=== PATIENT | male | born 1930 | race Caucasian/White ===

== ENCOUNTER 2017-02-25 01:59 | Inpatient (IN) | payer MEDICARE ==
[2017-02-25] VITALS (26 sets, daily range): BP systolic 82–171; BP diastolic 51–113
[~2017-02-25] VITALS: Ht 193 cm; Wt 79.5 kg
--- OUTSIDE RECORDS SUMMARY | 2017-02-25 05:18 | XMS REPORT ---
Author Author Ant Huber [facility] Address [address] [place], [place] [id number] Care Team Providers Care Pals Nurse Name Role Phone Ant Huber PCP Unavailable Ant Huber PreferredProvider Unavailable Allergies and Adverse Reactions Name Reaction Notes NO KNOWN DRUG ALLERGIES Plan of Treatment Planned Activity Comments Planned Date Planned Time Plan/Goal CT HEAD W/O CONTRAST 08/03/2016 12:00 AM CBC with Auto 01/20/2014 12:00 AM Thyroid stimulating hormone (TSH) 01/20/2014 12:00 AM Protime 04/01/2014 12:00 AM CBC With Auto Differential 05/27/2014 12:00 AM CMP 05/27/2014 12:00 AM Lipid profile 05/27/2014 12:00 AM Protime 05/27/2014 12:00 AM Thyroid stimulating hormone (TSH) 05/27/2014 12:00 AM Lipid profile 08/18/2014 12:00 AM Medications Active Name Start Date Estimated Completion Date SIG Comments aspirin 81 mg oral tablet take 1 tablet (81 mg) by oral route once daily [place] 0.03 % ophthalmic drops instill 1 drop into affected eye(s) by ophthalmic route once daily in the evening levothyroxine 100 mcg oral tablet 08/08/2014 TAKE ONE TABLET BY MOUTH ONCE DAILY finasteride 5 mg oral tablet 04/10/2015 TAKE ONE TABLET BY MOUTH ONCE DAILY Miralax 17 gram/dose oral powder 05/26/2015 take 17 gram mixed with 8 oz. water, juice, soda, coffee or tea by oral route once daily pilocarpine HCl 2 % ophthalmic drops 06/18/2015 INSTILL ONE DROP INTO EACH EYE EVERY 12 HOURS pilocarpine HCl 2 % ophthalmic drops 06/23/2015 INSTILL ONE DROP INTO EACH EYE EVERY 12 HOURS atorvastatin 80 mg oral tablet 08/05/2015 TAKE ONE TABLET BY MOUTH ONCE DAILY AT BEDTIME levothyroxine 100 mcg oral tablet 11/09/2015 TAKE ONE TABLET BY MOUTH ONCE DAILY finasteride 5 mg oral tablet 08/01/2016 TAKE ONE TABLET BY MOUTH ONCE DAILY Name Start Date Expiration Date SIG Comments amoxicillin 500 mg oral capsule 10/30/2009 11/09/2009 take 2 capsules by oral route 3 times a day for 5 days Medrol (Onel) 4 mg oral tablets,dose pack 11/02/2009 11/12/2009 take as directed for 5 days Bactrim DS 800-160 mg oral tablet 11/02/2009 11/12/2009 take 1 tablet by oral route every 12 hours for 10 days Synthroid 50 mcg oral tablet 06/28/2010 06/28/2010 take 1 tablet (50 mcg) by oral route once daily SYNTHROID 50MCG TAB 50 each 06/29/2010 07/29/2010 1QD - TAKE ONE TABLET BY MOUTH EVERY DAY atorvastatin 80 mg oral tablet 02/12/2013 03/14/2013 TAKE ONE TABLET BY MOUTH AT BEDTIME Aleve 220 mg oral tablet 07/25/2013 11/22/2013 take 1 tablet (220 mg) by oral route every 12 hours as needed for 30 days Colace 100 mg oral capsule 07/25/2013 02/20/2014 take 1 capsule (100 mg) by oral route once daily for 30 days Lasix 20 mg oral tablet 07/25/2013 02/20/2014 take 1 tablet daily levothyroxine 100 mcg oral tablet 07/25/2013 02/20/2014 take 1 tablet (100 mcg) by oral route once daily for 30 days Miralax 17 gram/dose oral powder 07/25/2013 02/20/2014 take 17 gram mixed with 8 oz. water, juice, soda, coffee or tea by oral route once daily for 30 days pilocarpine HCl 2 % ophthalmic drops 07/25/2013 02/20/2014 instill 1 drop into both eyes by ophthalmic route every 12 hours for 30 days bimatoprost 0.01% 07/26/2013 05/22/2014 1 drop each eye at bedtime timolol maleate 0.5 % ophthalmic drops 07/26/2013 02/21/2014 instill 1 drop in affected eye , each eye for 30 days bid atorvastatin 40 mg oral tablet 04/07/2014 11/03/2014 take 1 tablet (40 mg) by oral route once daily at bedtime for 30 days finasteride 5 mg oral tablet 04/07/2014 07/01/2015 take 1 tablet (5 mg) by oral route once daily for 90 days atenolol 50 mg oral tablet 09/11/2014 09/06/2015 take 1 tablet by oral route daily for 30 days Coumadin 2.5 mg oral tablet 09/11/2014 09/06/2015 take 1 tablet (2.5 mg) by oral route once daily for 90 days, on Wed et Sat take 1/2 tablet Pacerone 200 mg oral tablet 09/11/2014 05/09/2015 take 1 tablet (200 mg) by oral route once daily for 30 days naproxen 500 mg oral tablet 05/26/2015 09/23/2015 take 1 tablet (500 mg) by oral route 2 times per day with food for 30 days Discontinued Name Start Date Discontinued Date SIG Comments carvedilol 25 mg oral tablet 06/12/2012 take 1 tablet (25 mg) by oral route 2 times per day with food promethazine-codeine 6.25-10 mg/5 mL oral syrup 06/12/2012 take 5 milliliters by oral route every 6 hours as needed, not to exceed 30 mL in 24 hours pravastatin 80 mg oral tablet 06/12/2012 take 1 tablet (80 mg) by oral route once daily Nasonex 50 mcg/actuation nasal spray,non-aerosol 07/07/2011 06/12/2012 spray 2 sprays in each nostril by intranasal route once daily [place] 5-325 mg oral tablet 05/21/2013 take 1 tablet by oral route every 6 hours as needed for pain for 30 days Lasix 40 mg oral tablet 12/11/2012 05/21/2013 take 1 tablet by oral route daily as needed Celebrex 200 mg oral capsule 05/21/2013 04/07/2014 take 1 capsule (200 mg) by oral route once daily Lipitor 20 mg oral tablet 07/08/2013 04/07/2014 take 1 tablet (20 mg) by oral route once daily for 90 days warfarin 2 mg oral tablet 04/07/2014 take 1 tablet (2 mg) by oral route once daily atorvastatin 80 mg oral tablet 07/29/2014 09/11/2014 TAKE ONE TABLET BY MOUTH ONCE DAILY AT BEDTIME Problem List Description Status Onset Heart disease Active Hyperlipidemia, 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/2012 Vital Signs Date Time BP-Sys(mm[Hg] BP-Yokasta(mm[Hg]) HR(bpm) RR(rpm) Temp WT HT HC BMI BSA BMI Percentile O2 Sat(%) 08/03/2016 10:52:00 AM 118 bpm 18 rpm 97.8 F 172 lbs 74 in 22.08 kg/m2 2.02 m2 94 % 04/14/2016 3:09:00 PM 118 mmHg 70 mmHg 92 bpm 17 rpm 97.9 F 183 lbs 74 in 23.4956 kg/m 2.0818 m 96 % 02/09/2016 2:52:00 PM 116 mmHg 74 mmHg 67 bpm 18 rpm 97 F 189 lbs 74 in 24.27 kg/m2 2.12 m2 95 % 05/26/2015 2:11:00 PM 130 mmHg 64 mmHg 82 bpm 18 rpm 97.4 F 200 lbs 74 in 25.6782 kg/m 2.1764 m 09/11/2014 1:34:00 PM 108 mmHg 70 mmHg 82 bpm 18 rpm 98.3 F 208 lbs 74 in 26.71 kg/m2 2.22 m2 05/27/2014 1:34:00 PM 100 mmHg 62 mmHg 88 bpm 18 rpm 98.6 F 212 lbs 74 in 27.2189 kg/m 2.2407 m 04/22/2014 3:26:00 PM 100 mmHg 64 mmHg 93 bpm 18 rpm 97 F 209 lbs 74 in 26.83 kg/m2 2.22 m2 93 % 04/07/2014 2:57:00 PM 110 mmHg 74 mmHg 84 bpm 18 rpm 98.2 F 209 lbs 74 in 26.8337 kg/m 2.2248 m 03/31/2014 1:18:00 PM 132 mmHg 80 mmHg 92 bpm 18 rpm 97.4 F 208.5 lbs 74 in 26.77 kg/m2 2.22 m2 97 % 03/24/2014 11:12:00 AM 123 mmHg 97 mmHg 93 bpm 20 rpm 98.2 F 206.2 lbs 74 in 26.4742 kg/m 2.2098 m 96 % 02/11/2014 8:58:00 AM 132 mmHg 74 mmHg 54 bpm 18 rpm 96.1 F 204.125 lbs 74 in 26.21 kg/m2 2.20 m2 98 % 08/27/2013 3:54:00 PM 152 mmHg 90 mmHg 64 bpm 20 rpm 98 F 208 lbs 08/12/2013 10:57:00 AM 129 mmHg 87 mmHg 66 bpm 20 rpm 98 F 210 lbs 74 in 26.96 kg/m2 2.23 m2 96 % 07/08/2013 11:08:00 AM 110 mmHg 82 mmHg 61 bpm 18 rpm 97.5 F 208 lbs 74 in 26.7053 kg/m 2.2195 m 95 % 05/21/2013 1:50:00 PM 112 mmHg 60 mmHg 79 bpm 20 rpm 98.6 F 212 lbs 74 in 27.22 kg/m2 2.24 m2 12/11/2012 1:57:00 PM 120 mmHg 64 mmHg 66 bpm 14 rpm 97.6 F 218 lbs 74 in 27.9893 kg/m 2.2722 m 95 % 09/04/2012 8:22:00 AM 128 mmHg 82 mmHg 78 bpm 18 rpm 97.6 F 221 lbs 74 in 28.37 kg/m2 2.29 m2 06/12/2012 1:29:00 PM 118 mmHg 72 mmHg 72 bpm 18 rpm 98.1 F 218 lbs 74 in 27.9893 kg/m 2.2722 m 12/26/2011 1:40:00 PM 110 mmHg 70 mmHg 64 bpm 18 rpm 97.8 F 211 lbs 74 in 27.09 kg/m2 2.24 m2 11/24/2011 3:25:00 PM 144 mmHg 80 mmHg 64 bpm 18 rpm 97.9 F 200 lbs 74 in 25.6782 kg/m 2.1764 m 07/07/2011 2:12:00 PM 110 mmHg 72 mmHg 60 bpm 18 rpm 97.9 F 212 lbs 74 in 27.22 kg/m2 2.24 m2 01/24/2011 3:17:00 PM 100 mmHg 64 mmHg 58 bpm 20 rpm 98.8 F 224 lbs 74 in 28.7596 kg/m 2.3032 m 03/18/2010 3:02:00 PM 140 mmHg 80 mmHg 100 bpm 20 rpm 97.5 F 217 lbs 11/16/2009 10:40:00 AM 108 mmHg 60 mmHg 56 bpm 20 rpm 98.3 F 212 lbs 11/05/2009 8:16:00 AM 110 mmHg 78 mmHg 58 bpm 20 rpm 98.3 F 211 lbs 11/02/2009 8:03:00 AM 108 mmHg 64 mmHg 58 bpm 18 rpm 98.8 F 212 lbs 10/30/2009 8:07:00 AM 102 mmHg 60 mmHg 56 bpm 98.1 F 210 lbs 10/26/2009 10:48:00 AM 108 mmHg 54 mmHg 50 bpm 98 F 213 lbs 04/07/2009 8:50:00 AM 122 mmHg 74 mmHg 50 bpm 97.4 F 221 lbs Social History Name Description Comments Tobacco Never smoker Lives with spouse Alcohol Use - Rare retired Exercises regularly walking History of Procedures Date Ordered Description Order Status 01/24/2011 12:00 AM Immunization administration, Medicare flu Reviewed 05/14/2015 12:00 AM RADEX SPINE THORACIC 2 VIEWS Reviewed 05/14/2015 12:00 AM RADEX SPINE LUMBOSACRAL 2/3 VIEWS Reviewed 03/09/2011 12:00 AM CAPILLARY BLOOD DRAW Reviewed 03/09/2011 12:00 AM PROTHROMBIN TIME Reviewed 02/01/2016 12:00 AM COMPLETE CBC W/AUTO DIFF WBC Reviewed 02/01/2016 12:00 AM COMPREHEN METABOLIC PANEL Reviewed 02/01/2016 12:00 AM LIPID PANEL Reviewed 02/01/2016 12:00 AM GLYCOSYLATED HEMOGLOBIN TEST Reviewed 02/02/2016 12:00 AM ASSAY THYROID STIM HORMONE Reviewed 06/23/2011 12:00 AM CHEST X-RAY 2VW FRONTAL&LATL Reviewed 02/09/2016 12:00 AM X-RAY EXAM THORAC SPINE 2VWS Reviewed 07/07/2011 12:00 AM BREATHING CAPACITY TEST Reviewed 03/05/2009 12:00 AM PROTHROMBIN TIME Reviewed 02/29/2012 12:00 AM PNEUMOCOCCAL VACC 23 BAILEY IM Reviewed 02/29/2012 12:00 AM Flu Injection 3 Years And Above [facility]# [address]-62 C Reviewed 05/11/2012 12:00 AM ROUTINE VENIPUNCTURE Reviewed 05/11/2012 12:00 AM COMPLETE CBC W/AUTO DIFF WBC Reviewed 05/11/2012 12:00 AM COMPREHEN METABOLIC PANEL Reviewed 05/11/2012 12:00 AM LIPID PANEL Reviewed 05/11/2012 12:00 AM ASSAY THYROID STIM HORMONE Reviewed 07/05/2012 12:00 AM CAPILLARY BLOOD DRAW Reviewed 07/05/2012 12:00 AM PROTHROMBIN TIME Reviewed 08/13/2012 12:00 AM IMMUNIZATION ADMIN Reviewed 08/13/2012 12:00 AM TD VACCINE NO PRSRV 7/> IM Reviewed 12/04/2012 12:00 AM ROUTINE VENIPUNCTURE Reviewed 12/04/2012 12:00 AM COMPLETE CBC W/AUTO DIFF WBC Reviewed 12/04/2012 12:00 AM COMPREHEN METABOLIC PANEL Reviewed 12/04/2012 12:00 AM LIPID PANEL Reviewed 12/04/2012 12:00 AM ASSAY THYROID STIM HORMONE Reviewed 02/22/2013 12:00 AM Flu Injection 3 Years And Above [facility]# [id number] C Reviewed 03/15/2013 12:00 AM CAPILLARY BLOOD DRAW Reviewed 03/15/2013 12:00 AM PROTHROMBIN TIME Reviewed 04/15/2013 12:00 AM ROUTINE VENIPUNCTURE Reviewed 04/15/2013 12:00 AM COMPLETE CBC W/AUTO DIFF WBC Reviewed 04/15/2013 12:00 AM COMPREHEN METABOLIC PANEL Reviewed 04/15/2013 12:00 AM LIPID PANEL Reviewed 04/15/2013 12:00 AM ASSAY THYROID STIM HORMONE Reviewed 03/30/2009 12:00 AM PROTHROMBIN TIME Reviewed 03/30/2009 12:00 AM METABOLIC PANEL TOTAL CA Reviewed 10/30/2009 12:00 AM CULTURE OTHR SPECIMN AEROBIC Reviewed 11/02/2009 12:00 AM PROTHROMBIN TIME Reviewed 11/05/2009 12:00 AM PROTHROMBIN TIME Reviewed 11/16/2009 12:00 AM PROTHROMBIN TIME Reviewed 11/16/2009 12:00 AM COMPLETE CBC W/AUTO DIFF WBC Reviewed 11/16/2009 12:00 AM COMPREHEN METABOLIC PANEL Reviewed 11/16/2009 12:00 AM LIPID PANEL Reviewed 11/16/2009 12:00 AM ASSAY THYROID STIM HORMONE Reviewed 12/15/2009 12:00 AM ROUTINE VENIPUNCTURE Reviewed 12/15/2009 12:00 AM COMPLETE CBC W/AUTO DIFF WBC Reviewed 12/15/2009 12:00 AM METABOLIC PANEL TOTAL CA Reviewed 12/15/2009 12:00 AM LIPID PANEL Reviewed 12/15/2009 12:00 AM ASSAY THYROID STIM HORMONE Reviewed 04/07/2009 12:00 AM PROTHROMBIN TIME Reviewed 02/09/2010 12:00 AM Immunization administration, Medicare flu Reviewed 02/09/2010 12:00 AM FLU VACCINE 3 YRS & > IM Reviewed 03/02/2010 12:00 AM ROUTINE VENIPUNCTURE Reviewed 03/02/2010 12:00 AM COMPLETE CBC W/AUTO DIFF WBC Reviewed 03/02/2010 12:00 AM COMPREHEN METABOLIC PANEL Reviewed 03/02/2010 12:00 AM LIPID PANEL Reviewed 03/02/2010 12:00 AM ASSAY THYROID STIM HORMONE Reviewed 04/12/2010 12:00 AM CAPILLARY BLOOD DRAW Reviewed 04/12/2010 12:00 AM PROTHROMBIN TIME Reviewed 01/20/2014 12:00 AM COMPREHEN METABOLIC PANEL Reviewed 01/20/2014 12:00 AM LIPID PANEL Reviewed 02/11/2014 12:00 AM INFLUENZA VAC 4 VALENT PRSRV FREE 3 YRS PLUS IM Reviewed 03/24/2014 12:00 AM ELECTROCARDIOGRAM COMPLETE Reviewed 04/07/2014 12:00 AM PNEUMOCOCCAL VACC 7 BAILEY IM Reviewed 08/18/2014 12:00 AM COMPLETE CBC W/AUTO DIFF WBC Reviewed 08/18/2014 12:00 AM COMPREHEN METABOLIC PANEL Reviewed 08/18/2014 12:00 AM GLYCOSYLATED HEMOGLOBIN TEST Reviewed 08/18/2014 12:00 AM ASSAY THYROID STIM HORMONE Reviewed 08/18/2014 12:00 AM ASSAY OF PSA TOTAL Reviewed 08/18/2014 12:00 AM ASSAY OF PSA FREE Reviewed 08/18/2014 12:00 AM PSA screening Reviewed Results Summary Data and Description Results 02/19/2009 11:50 AM LDL 83.0 mg/dLHDL 38.0 mg/dLTOT CHOL/HDL 4.2 CHOLESTEROL 158 mg/dLTRIGLYCERIDES 86.0 mg/dLLDL 83.0 mg/dLTOT CHOL/HDL 4.2 CHOLESTEROL 158 mg/dLHDL 38.0 mg/dLTRIGLYCERIDES 86.0 mg/dLMANUAL DIFF NOT IND RDW SD 46 RDW CV 13.80 %RBC 4.64 MCHC 33.80 g/dLMPV 9.0 fL%NEUT 59.60 %%MONO 10.10 %%BASO 0.3 % NRBC% 0.0 NRBC# 0.00 MCH 31.0 pg#LYMP 1.07 #EOS 0.12 PLT 197 HCT 42.60 %MCV 92.0 fLWBC 4.0 #MONO 0.40 %EOS 3.0 %HGB 14.40 g/dL#BASO 0.01 %LYMP 27.0 %#NEUT 2.37 %LYMP 27.0 %#BASO 0.01 #LYMP 1.07 #MONO 0.40 MCHC 33.80 g/dL%MONO 10.10 % WBC 4.0 MANUAL DIFF NOT IND %NEUT 59.60 %MCH 31.0 pg%BASO 0.3 %PLT 197 NRBC# 0.00 #EOS 0.12 HGB 14.40 g/dLRDW CV 13.80 %NRBC% 0.0 MPV 9.0 fLHCT 42.60 %%EOS 3.0 %RDW SD 46 RBC 4.64 MCV 92.0 fL#NEUT 2.37 PSA TOTAL 0.750 ng/mLPSA TOTAL 0.750 ng/mLGLUCOSE 114 SODIUM 141.0 mmol/LPOTASSIUM 4.30 mmol/LCHLORIDE 108.0 mmol/LCO2 26.0 mmol/LBUN 25.0 mg/dLCREATININE 1.10 mg/dLSGOT/AST 34.0 IU/LSGPT/ ALT 36.0 IU/LALK PHOS 86.0 IU/LTOTAL PROTEIN 6.80 g/dLALBUMIN 3.90 g/dLTOTAL BILI 0.90 mg/dLCALCIUM 9.50 mg/dLAGE 78 GFR NonAA 65 GFR AA 79 eGFR >60 mL/ mineGFR AA* >60 GLUCOSE 114 SODIUM 141.0 mmol/LPOTASSIUM 4.30 mmol/LCHLORIDE 108.0 mmol/LCO2 26.0 mmol/LBUN 25.0 mg/dLCREATININE 1.10 mg/dLSGOT/AST 34.0 IU/ LSGPT/ALT 36.0 IU/LALK PHOS 86.0 IU/LTOTAL PROTEIN 6.80 g/dLALBUMIN 3.90 g/ dLTOTAL BILI 0.90 mg/dLCALCIUM 9.50 mg/dLAGE 78 GFR NonAA 65 GFR AA 79 eGFR >60 mL/mineGFR AA* >60 03/05/2009 10:24 AM PT PPP Cont Qn 16.50 secsINR PPP Qn 1.8 Coumadin Plan take 4.5mg T et Th, 3mg on SMWFS INR Target Range 2.0-3.0 05/20/2009 1:02 PM INR 5.7 DATE/TIME CALLED: 10:1333 PROTIME 52.30 secsREAD BACK BY: ELLEN 06/03/2009 9:31 AM INR 2.0 PROTIME 22.10 secs 06/15/2009 3:09 PM INR 3.5 PROTIME 38.70 secs 07/13/2009 10:50 AM PROTIME 46.80 secsINR 4.2 08/24/2009 10:09 AM PROTIME 23.10 secsINR 2.1 10/07/2009 8:43 AM PROTIME 47.40 secsINR 4.3 10/26/2009 12:57 PM PROTIME 41.50 secsINR 3.7 10/30/2009 3:53 PM SMALL 11/05/2009 9:05 AM PROTIME 30.60 secsINR 2.8 12/15/2009 11:02 AM PROTIME 24.80 secsINR 2.3 01/12/2010 11:36 AM PROTIME 17.40 secsINR 1.6 02/09/2010 11:30 AM PROTIME 16.60 secsINR 1.5 03/02/2010 1:25 PM PROTIME POCT 59.20 secsINR POCT 4.9 03/15/2010 11:32 AM PROTIME 36.50 secsINR 3.3 TRIGLYCERIDES 105.0 mg/ dLCHOLESTEROL 137.0 mg/dLHDL 37.0 mg/dLTOT CHOL/HDL 3.7 LDL (CALC) 79.0 mg/ dLTSH 2.120 uIU/mLWBC 5.0 RBC 4.59 HGB 14.20 g/dLHCT 44.40 %MCV 97.0 fLMCH 30.90 pgMCHC 32.0 g/dLRDW SD 50 RDW CV 14.0 %MPV 9.20 fLPLT 207 NRBC# 0.00 NRBC % 0.0 %NEUT 64.70 %%LYMP 22.10 %%MONO 11.0 %%EOS 2.0 %%BASO 0.20 %#NEUT 3.25 # LYMP 1.11 #MONO 0.55 #EOS 0.10 #BASO 0.01 MANUAL DIFF NOT IND GLUCOSE 103.0 mg/ dLSODIUM 142.0 mmol/LPOTASSIUM 5.20 mmol/LCHLORIDE 109.0 mmol/LCO2 27.0 mmol/ LBUN 24.0 mg/dLCREATININE 1.20 mg/dLSGOT/AST 22.0 IU/LSGPT/ALT 21.0 IU/LALK PHOS 80.0 IU/LTOTAL PROTEIN 6.90 g/dLALBUMIN 4.0 g/dLTOTAL BILI 0.80 mg/ dLCALCIUM 9.70 mg/dLAGE 79 GFR NonAA 58 GFR AA 70 eGFR 58 eGFR AA* >60 04/12/2010 1:57 PM PROTIME POCT 38.60 secsINR POCT 3.2 06/14/2010 1:15 PM PROTIME POCT 34.30 secsINR POCT 2.9 07/26/2010 1:02 PM PROTIME POCT 32.50 secsINR POCT 2.7 08/31/2010 9:17 AM PROTIME POCT 51.50 secsINR POCT 4.3 09/27/2010 12:10 PM PROTIME POCT 40.60 secsINR POCT 3.4 11/03/2010 12:32 PM PROTIME POCT 34.10 secsINR POCT 2.8 12/14/2010 11:52 AM PROTIME POCT 37.30 secsINR POCT 3.1 03/14/2011 12:06 PM PROTIME POCT 37.60 secsINR POCT 3.1 04/18/2011 11:58 AM PROTIME POCT 22.90 secsINR POCT 1.9 06/07/2011 11:42 AM PROTIME POCT 26.50 secsINR POCT 2.2 07/11/2011 12:15 PM PROTIME POCT 69.50 secsINR POCT 5.8 CALLED TO/BY DAYA AT [facility] 1215 4-9 BY VERONICA 07/19/2011 3:48 PM PROTIME POCT 37.80 secsINR POCT 3.2 08/22/2011 12:05 PM PROTIME POCT 37.30 secsINR POCT 3.1 10/03/2011 11:55 AM PROTIME POCT 32.60 secsINR POCT 2.7 11/08/2011 9:12 AM PROTIME 26.40 secsINR 2.5 11/10/2011 10:00 AM PROTIME 23.10 secsINR 2.2 GLUCOSE 112.0 mg/dLSODIUM 142.0 mmol/LPOTASSIUM 3.80 mmol/LCHLORIDE 106.0 mmol/LCO2 24.0 mmol/LBUN 18.0 mg/ dLCREATININE 1.10 mg/dLCALCIUM 9.10 mg/dLAGE 81 GFR NonAA 64 GFR AA 78 eGFR 60 eGFR AA* 60 11/11/2011 10:01 AM GLUCOSE 124.0 mg/dLSODIUM 141.0 mmol/LPOTASSIUM 4.10 mmol/ LCHLORIDE 105.0 mmol/LCO2 24.0 mmol/LBUN 19.0 mg/dLCREATININE 1.20 mg/dLCALCIUM 9.40 mg/dLAGE 81 GFR NonAA 58 GFR AA 70 eGFR 58 eGFR AA* 60 PROTIME 30.40 secsINR 2.9 11/15/2011 8:56 AM PROTIME 49.20 secsINR 4.8 GLUCOSE 98.0 mg/dLSODIUM 141.0 mmol/LPOTASSIUM 3.70 mmol/LCHLORIDE 108.0 mmol/LCO2 24.0 mmol/LBUN 14.0 mg/ dLCREATININE 1.20 mg/dLCALCIUM 9.20 mg/dLAGE 81 GFR NonAA 58 GFR AA 70 eGFR 58 eGFR AA* 60 11/18/2011 7:30 AM GLUCOSE 91.0 mg/dLSODIUM 142.0 mmol/LPOTASSIUM 3.70 mmol/ LCHLORIDE 108.0 mmol/LCO2 24.0 mmol/LBUN 13.0 mg/dLCREATININE 1.20 mg/dLCALCIUM 8.80 mg/dLAGE 81 GFR NonAA 58 GFR AA 70 eGFR 58 eGFR AA* 60 PROTIME 46.90 secsINR 4.6 11/21/2011 1:40 PM WBC 5.9 RBC 4.08 HGB 12.10 g/dLHCT 38.30 %MCV 94.0 fLMCH 29.70 pgMCHC 31.60 g/dLRDW SD 55 RDW CV 15.90 %MPV 8.90 fLPLT 282 NRBC# 0.00 NRBC% 0.0 %NEUT 60.80 %%LYMP 21.20 %%MONO 13.80 %%EOS 3.90 %%BASO 0.30 %#NEUT 3.60 #LYMP 1.26 #MONO 0.82 #EOS 0.23 #BASO 0.02 MANUAL DIFF NOT IND GLUCOSE 98.0 mg/dLSODIUM 142.0 mmol/LPOTASSIUM 4.10 mmol/LCHLORIDE 106.0 mmol/LCO2 25.0 mmol/LBUN 24.0 mg/dLCREATININE 1.80 mg/dLSGOT/AST 34.0 IU/LSGPT/ALT 35.0 IU/ LALK PHOS 99.0 IU/LTOTAL PROTEIN 6.30 g/dLALBUMIN 3.50 g/dLTOTAL BILI 0.50 mg/ dLCALCIUM 9.20 mg/dLAGE 81 GFR NonAA 36 GFR AA 44 eGFR 36 eGFR AA* 44 TRIGLYCERIDES 226.0 mg/dLCHOLESTEROL 137.0 mg/dLHDL 32.0 mg/dLTOT CHOL/HDL 4.3 LDL (CALC) 60.0 mg/dLPSA TOTAL 0.560 ng/mLT4 8.10 ug/dLT3 TOTAL 66.0 ng/dLTSH 6.40 uIU/mL 11/21/2011 7:30 PM PROTIME 37.40 secsINR 3.6 COLOR YELLOW APPEARANCE CLEAR SPEC GRAV 1.010 pH 5.5 PROTEIN NEGATIVE GLUCOSE NEGATIVE KETONE NEGATIVE BILIRUBIN NEGATIVE BLOOD MODERATE NITRITE NEGATIVE LEUK SCREEN NEGATIVE WBC/HPF 0-5 RBC/HPF 0-5 CASTS/LPF NEGATIVE CRYSTALS NEGATIVE MUCOUS THRDS FEW BACTERIA NEGATIVE EPITH CELLS NEGATIVE TRICHOMONAS NEGATIVE YEAST NEGATIVE CULT SET UP? NO 11/28/2011 7:45 AM PROTIME 42.80 secsINR 4.2 12/12/2011 7:40 AM PROTIME 42.20 secsINR 4.1 12/22/2011 12:40 PM PROTIME POCT 32.10 secsINR POCT 2.7 01/24/2012 12:15 PM PROTIME POCT 50.0 secsINR POCT 4.2 02/09/2012 11:18 AM PROTIME POCT 43.70 secsINR POCT 3.6 02/29/2012 11:57 AM PROTIME POCT 41.30 secsINR POCT 3.4 04/04/2012 12:17 PM PROTIME POCT 50.70 secsINR POCT 4.2 05/07/2012 2:07 PM PROTIME POCT 26.50 secsINR POCT 2.2 05/21/2012 12:14 PM PROTIME POCT 54.90 secsINR POCT 4.6 06/05/2012 8:25 AM WBC 4.2 RBC 4.71 HGB 14.60 g/dLHCT 43.70 %MCV 93.0 fLMCH 31.0 pgMCHC 33.40 g/dLRDW SD 49 RDW CV 14.50 %MPV 9.10 fLPLT 193 NRBC# 0.00 NRBC % 0.0 %NEUT 55.30 %%LYMP 29.50 %%MONO 10.70 %%EOS 4.30 %%BASO 0.20 %#NEUT 2.32 # LYMP 1.24 #MONO 0.45 #EOS 0.18 #BASO 0.01 MANUAL DIFF NOT IND GLUCOSE 106.0 mg/ dLSODIUM 144.0 mmol/LPOTASSIUM 4.40 mmol/LCHLORIDE 108.0 mmol/LCO2 23.0 mmol/ LBUN 21.0 mg/dLCREATININE 1.10 mg/dLSGOT/AST 33.0 IU/LSGPT/ALT 39.0 IU/LALK PHOS 69.0 IU/LTOTAL PROTEIN 6.90 g/dLALBUMIN 3.80 g/dLTOTAL BILI 1.10 mg/ dLCALCIUM 9.90 mg/dLAGE 81 GFR NonAA 64 GFR AA 78 eGFR 60 eGFR AA* 60 TRIGLYCERIDES 122.0 mg/dLCHOLESTEROL 152.0 mg/dLHDL 43.0 mg/dLTOT CHOL/HDL 3.5 LDL (CALC) 85.0 mg/dLTSH 6.620 uIU/mL 06/18/2012 12:32 PM PROTIME POCT 25.30 secsINR POCT 2.1 07/02/2012 3:06 PM PROTIME POCT 37.0 secsINR POCT 3.1 08/08/2012 12:33 PM PROTIME POCT 41.20 secsINR POCT 3.4 09/03/2012 10:05 AM PROTIME POCT 24.60 secsINR POCT 2.1 09/11/2012 12:55 PM PROTIME POCT 36.0 secsINR POCT 3.0 10/08/2012 12:35 PM PROTIME POCT 46.10 secsINR POCT 3.8 11/05/2012 12:55 PM PROTIME POCT 37.20 secsINR POCT 3.1 12/07/2012 9:35 AM WBC 4.8 RBC 4.55 HGB 13.90 g/dLHCT 42.30 %MCV 93.0 fLMCH 30.50 pgMCHC 32.90 g/dLRDW SD 47 RDW CV 14.0 %MPV 8.80 fLPLT 201 NRBC# 0.00 NRBC % 0.0 %NEUT 56.20 %%LYMP 24.60 %%MONO 14.0 %%EOS 5.0 %%BASO 0.20 %#NEUT 2.72 # LYMP 1.19 #MONO 0.68 #EOS 0.24 #BASO 0.01 MANUAL DIFF NOT IND PROTIME 50.70 secsDATE/TIME CALLED: 12/07/2012 @ 1022 READ BACK BY: DAYA GEORGE INR 5.0 TRIGLYCERIDES 119.0 mg/dLCHOLESTEROL 133.0 mg/dLHDL 34.0 mg/dLTOT CHOL/HDL 3.9 LDL (CALC) 75.0 mg/dLGLUCOSE 118.0 mg/dLSODIUM 140.0 mmol/LPOTASSIUM 4.30 mmol/ LCHLORIDE 107.0 mmol/LCO2 24.0 mmol/LBUN 25.0 mg/dLCREATININE 1.10 mg/dLSGOT/ AST 33.0 IU/LSGPT/ALT 36.0 IU/LALK PHOS 84.0 IU/LTOTAL PROTEIN 7.0 g/dLALBUMIN 4.20 g/dLTOTAL BILI 1.50 mg/dLCALCIUM 9.80 mg/dLAGE 82 GFR NonAA 64 GFR AA 78 eGFR 60 eGFR AA* 60 TSH 7.90 uIU/mL 12/07/2012 12:21 PM PT PPP Qn 50.70 secsINR PPP Qn 5.0 Coumadin Plan hold today. restart 4.5 mg Mon, 3mg all other days Next Lab Draw Repeat in 1 wk 12/26/2012 10:30 AM PROTIME POCT 64.40 secsINR POCT 5.4 12/26/2012 12:56 PM INR PPP Qn 5.4 Coumadin Plan hold today, restart tomorrow 3mg daily Next Lab Draw Repeat in 1 wk 01/09/2013 12:52 PM PROTIME POCT 42.90 secsINR POCT 3.6 01/15/2013 10:48 AM PROTIME POCT 47.30 secsINR POCT 3.9 01/23/2013 1:35 PM PROTIME POCT 19.10 secsINR POCT 1.6 02/05/2013 12:38 PM PROTIME POCT 25.90 secsINR POCT 2.2 02/19/2013 12:58 PM PROTIME POCT 35.70 secsINR POCT 3.0 03/01/2013 12:50 PM PROTIME 45.90 secsINR 4.5 03/13/2013 3:05 PM PROTIME POCT 31.70 secsINR POCT 2.6 04/10/2013 10:20 AM PROTIME POCT 39.40 secsINR POCT 3.3 05/21/2013 1:20 PM PROTIME POCT 36.10 secsINR POCT 3.0 WBC 7.2 RBC 4.31 HGB 13.50 g/dLHCT 40.60 %MCV 94.0 fLMCH 31.30 pgMCHC 33.30 g/dLRDW SD 48 RDW CV 14.10 %MPV 9.30 fLPLT 353 NRBC# 0.00 NRBC% 0.0 %NEUT 76.70 %%LYMP 15.0 %%MONO 6.30 %%EOS 1.70 %%BASO 0.30 %#NEUT 5.51 #LYMP 1.08 #MONO 0.45 #EOS 0.12 #BASO 0.02 MANUAL DIFF NOT IND GLUCOSE 106.0 mg/dLSODIUM 141.0 mmol/LPOTASSIUM 4.50 mmol/LCHLORIDE 106.0 mmol/LCO2 23.0 mmol/LBUN 32.0 mg/dLCREATININE 1.20 mg/ dLSGOT/AST 34.0 IU/LSGPT/ALT 32.0 IU/LALK PHOS 96.0 IU/LTOTAL PROTEIN 7.10 g/ dLALBUMIN 3.70 g/dLTOTAL BILI 1.50 mg/dLCALCIUM 10.60 mg/dLAGE 82 GFR NonAA 58 GFR AA 70 eGFR 58 eGFR AA* >60 TRIGLYCERIDES 93.0 mg/dLCHOLESTEROL 111.0 mg/ dLHDL 28.0 mg/dLTOT CHOL/HDL 4.0 LDL (CALC) 64.0 mg/dLTSH 4.910 uIU/mL 06/11/2013 8:59 AM PROTIME 24.30 secsINR 2.3 06/12/2013 9:11 AM PROTIME 25.30 secsINR 2.4 06/19/2013 8:35 AM WBC 7.8 RBC 3.81 HGB 11.60 g/dLHCT 35.40 %MCV 93.0 fLMCH 30.40 pgMCHC 32.80 g/dLRDW SD 49 RDW CV 14.30 %MPV 9.0 fLPLT 483 NRBC# 0.00 NRBC % 0.0 %NEUT 66.80 %%LYMP 19.20 %%MONO 11.60 %%EOS 2.10 %%BASO 0.30 %#NEUT 5.18 # LYMP 1.49 #MONO 0.90 #EOS 0.16 #BASO 0.02 MANUAL DIFF NOT IND GLUCOSE 98.0 mg/ dLSODIUM 138.0 mmol/LPOTASSIUM 4.40 mmol/LCHLORIDE 101.0 mmol/LCO2 25.0 mmol/ LBUN 26.0 mg/dLCREATININE 1.0 mg/dLSGOT/AST 30.0 IU/LSGPT/ALT 28.0 IU/LALK PHOS 113.0 IU/LTOTAL PROTEIN 6.0 g/dLALBUMIN 3.10 g/dLTOTAL BILI 1.40 mg/dLCALCIUM 8.70 mg/dLAGE 82 GFR NonAA 72 GFR AA 87 eGFR >60 mL/min/1.73 m2eGFR AA* >60 06/19/2013 8:36 AM PROTIME 88.80 secsINR 7.9 PTT 61.10 secsTSH 9.470 uIU/ mLTRIGLYCERIDES 76.0 mg/dLCHOLESTEROL 105.0 mg/dLHDL 28.0 mg/dLTOT CHOL/HDL 3.8 LDL (CALC) 62.0 mg/dL 06/20/2013 9:45 AM PROTIME 62.80 secsINR 5.7 06/21/2013 8:44 AM PROTIME 62.80 secsINR 5.7 06/24/2013 8:37 AM PROTIME 42.30 secsINR 3.9 06/25/2013 8:52 AM PROTIME 34.30 secsINR 3.2 07/17/2013 8:38 AM PROTIME 17.20 secsINR 1.6 07/24/2013 7:20 AM PROTIME 28.10 secsINR 2.6 08/27/2013 9:58 AM PROTIME 20.20 secsINR 1.9 09/10/2013 12:00 AM PT PPP Qn 23.70 secsINR PPP Qn 2.0 Coumadin Plan same, 2mg daily Next Lab Draw Repeat in 2 weeks 09/10/2013 12:47 PM PROTIME POCT 23.70 secsINR POCT 2.0 09/24/2013 1:15 PM PROTIME POCT 27.70 secsINR POCT 2.3 10/22/2013 1:08 PM PROTIME 20.0 secsINR 1.9 01/21/2014 9:35 AM GLUCOSE 105.0 mg/dLSODIUM 142.0 mmol/LPOTASSIUM 4.90 mmol/ LCHLORIDE 106.0 mmol/LCO2 27.0 mmol/LBUN 26.0 mg/dLCREATININE 1.0 mg/dLSGOT/AST 26.0 IU/LSGPT/ALT 29.0 IU/LALK PHOS 100.0 IU/LTOTAL PROTEIN 7.30 g/dLALBUMIN 4.20 g/dLTOTAL BILI 1.40 mg/dLCALCIUM 10.10 mg/dLAGE 83 GFR NonAA 71 GFR AA 86 eGFR 60 eGFR AA* 60 TRIGLYCERIDES 158.0 mg/dLCHOLESTEROL 154.0 mg/dLHDL 39.0 mg/ dLTOT CHOL/HDL 3.9 LDL (CALC) 83.0 mg/dL 09/02/2014 1:20 PM PSA TOTAL 0.10 ng/mLTSH 0.730 uIU/mLHGB A1C 5.40 %Est Avg Glucose 108.3 mg/dLGLUCOSE 108.0 mg/dLSODIUM 143.0 mmol/LPOTASSIUM 4.40 mmol/ LCHLORIDE 107.0 mmol/LCO2 26.0 mmol/LBUN 30.0 mg/dLCREATININE 1.20 mg/dLSGOT/ AST 29.0 IU/LSGPT/ALT 33.0 IU/LALK PHOS 83.0 IU/LTOTAL PROTEIN 6.90 g/dLALBUMIN 4.10 g/dLTOTAL BILI 1.30 mg/dLCALCIUM 9.40 mg/dLAGE 84 GFR NonAA 58 GFR AA 70 eGFR 58 eGFR AA* >60 WBC 5.5 RBC 4.65 HGB 14.70 g/dLHCT 44.50 %MCV 96.0 fLMCH 31.60 pgMCHC 33.0 g/dLRDW SD 50 RDW CV 14.10 %MPV 9.0 fLPLT 195 NRBC# 0.00 NRBC % 0.0 %NEUT 68.60 %%LYMP 18.70 %%MONO 9.80 %%EOS 2.50 %%BASO 0.40 %#NEUT 3.79 # LYMP 1.03 #MONO 0.54 #EOS 0.14 #BASO 0.02 MANUAL DIFF NOT IND TRIGLYCERIDES 94.0 mg/dLCHOLESTEROL 134.0 mg/dLHDL 39.0 mg/dLTOT CHOL/HDL 3.4 LDL (CALC) 76.0 mg/dL 01/06/2015 10:24 AM PROTIME POCT 21.30 secsINR POCT 1.8 01/20/2015 11:28 AM PROTIME POCT 25.20 secsINR POCT 2.1 03/03/2015 8:22 AM PROTIME POCT 33.30 secsINR POCT 2.8 03/24/2015 9:22 AM PROTIME POCT 22.50 secsINR POCT 1.9 04/08/2015 8:12 AM PROTIME POCT 18.10 secsINR POCT 1.5 04/21/2015 2:42 PM PROTIME POCT 33.50 secsINR POCT 2.8 05/19/2015 8:20 AM WBC 5.1 RBC 4.53 HGB 14.30 g/dLHCT 43.80 %MCV 97.0 fLMCH 31.60 pgMCHC 32.60 g/dLRDW SD 51 RDW CV 14.20 %MPV 9.0 fLPLT 277 NRBC# 0.00 NRBC % 0.0 PROTIME 38.10 secsINR 3.5 GLUCOSE 114.0 mg/dLSODIUM 142.0 mmol/LPOTASSIUM 4.30 mmol/LCHLORIDE 105.0 mmol/LCO2 28.0 mmol/LBUN 27.0 mg/dLCREATININE 1.20 mg/ dLSGOT/AST 67.0 IU/LSGPT/ALT 62.0 IU/LALK PHOS 158.0 IU/LTOTAL PROTEIN 7.10 g/ dLALBUMIN 4.10 g/dLTOTAL BILI 1.10 mg/dLCALCIUM 9.70 mg/dLAGE 84 GFR NonAA 58 GFR AA 70 eGFR 58 eGFR AA* >60 TRIGLYCERIDES 97.0 mg/dLCHOLESTEROL 123.0 mg/ dLHDL 39.0 mg/dLTOT CHOL/HDL 3.2 LDL (CALC) 65.0 mg/dLMAGNESIUM 2.50 mg/dLFREE T4 1.37 TSH 1.960 uIU/mL 06/02/2015 10:46 AM PROTIME POCT 69.50 secsINR POCT 5.8 CALLED TO/BY JORGE A AT DR JANSEN'S OFFICE. VERONICA 1050 06/23/2015 10:15 AM PROTIME POCT 29.10 secsINR POCT 2.4 07/14/2015 1:58 PM PROTIME POCT 83.30 secsINR POCT 7.0 CALLED TO/BY CALLED MALINA MAIN/VERONICA 1400 07/16/2015 2:10 PM PROTIME POCT 48.30 secsINR POCT 4.1 07/29/2015 1:38 PM PROTIME POCT 19.70 secsINR POCT 1.6 08/18/2015 2:08 PM PROTIME POCT 232.20 secsINR POCT 1.9 09/01/2015 1:54 PM PROTIME POCT 25.40 secsINR POCT 2.1 09/15/2015 2:55 PM PROTIME POCT 41.10 secsINR POCT 3.4 09/29/2015 2:15 PM PROTIME POCT 31.20 secsINR POCT 2.6 10/21/2015 3:30 PM PROTIME POCT 25.20 secsINR POCT 2.1 11/11/2015 2:18 PM PROTIME POCT 33.60 secsINR POCT 2.8 12/01/2015 2:15 PM PROTIME POCT 28.60 secsINR POCT 2.4 12/15/2015 8:58 AM PROTIME POCT 26.90 secsINR POCT 1.6 12/29/2015 1:45 PM PROTIME POCT 27.90 secsINR POCT 2.3 12/30/2015 1:30 PM GLUCOSE 110.0 mg/dLSODIUM 141.0 mmol/LPOTASSIUM 4.30 mmol/ LCHLORIDE 107.0 mmol/LCO2 24.0 mmol/LBUN 21.0 mg/dLCREATININE 1.10 mg/dLCALCIUM 9.50 mg/dLAGE 85 GFR NonAA 64 GFR AA 78 eGFR >60 mL/min/1.73meGFR AA* >60 MAGNESIUM 2.20 mg/dL 01/12/2016 1:30 PM PROTIME 18.10 secsINR 1.7 01/18/2016 1:45 PM PROTIME 30.10 secsINR 2.7 GLUCOSE 103.0 mg/dLSODIUM 142.0 mmol/LPOTASSIUM 4.70 mmol/LCHLORIDE 107.0 mmol/LCO2 24.0 mmol/LBUN 19.0 mg/ dLCREATININE 1.10 mg/dLCALCIUM 9.70 mg/dLAGE 85 GFR NonAA 64 GFR AA 78 eGFR >60 mL/min/1.73meGFR AA* >60 MAGNESIUM 2.40 mg/dL 02/02/2016 11:00 AM WBC 4.2 RBC 4.40 HGB 14.0 g/dLHCT 43.10 %MCV 98.0 fLMCH 31.80 pgMCHC 32.50 g/dLRDW SD 48 RDW CV 13.30 %MPV 9.0 fLPLT 227 NRBC# 0.00 NRBC % 0.0 %NEUT 64.0 %%LYMP 16.80 %%MONO 13.90 %%EOS 4.10 %%BASO 0.70 %#NEUT 2.67 # LYMP 0.70 #MONO 0.58 #EOS 0.17 #BASO 0.03 MANUAL DIFF NOT IND TSH 1.580 uIU/ mLHGB A1C 5.70 %Est Avg Glucose 116.9 mg/dLGLUCOSE 104.0 mg/dLSODIUM 142.0 mmol/ LPOTASSIUM 4.20 mmol/LCHLORIDE 105.0 mmol/LCO2 26.0 mmol/LBUN 20.0 mg/ dLCREATININE 0.90 mg/dLSGOT/AST 150.0 IU/LSGPT/ALT 113.0 IU/LALK PHOS 91.0 IU/ LTOTAL PROTEIN 6.70 g/dLALBUMIN 3.80 g/dLTOTAL BILI 1.30 mg/dLCALCIUM 9.50 mg/ dLAGE 85 GFR NonAA 80 GFR AA 97 eGFR >60 mL/min/1.73meGFR AA* >60 TRIGLYCERIDES 130.0 mg/dLCHOLESTEROL 149.0 mg/dLHDL 34.0 mg/dLTOT CHOL/HDL 4.4 LDL (CALC) 89.0 mg/dL 02/16/2016 4:00 PM PROTIME POCT 24.90 secsINR POCT 2.1 02/24/2016 2:52 PM VITAMIN D 35.60 ng/mLPTH, Intact 48 03/16/2016 3:00 PM GLUCOSE 95.0 mg/dLSODIUM 142.0 mmol/LPOTASSIUM 4.70 mmol/ LCHLORIDE 105.0 mmol/LCO2 27.0 mmol/LBUN 21.0 mg/dLCREATININE 1.0 mg/dLSGOT/AST 65.0 IU/LSGPT/ALT 44.0 IU/LALK PHOS 136.0 IU/LTOTAL PROTEIN 6.80 g/dLALBUMIN 4.0 g/dLTOTAL BILI 1.60 mg/dLCALCIUM 9.50 mg/dLAGE 85 GFR NonAA 71 GFR AA 86 eGFR >60 mL/min/1.73meGFR AA* >60 PROTIME 24.0 secsINR 2.2 SPECIMEN SOURCE: LEFT FOREARM SPECIMEN SOURCE: LEFT FOREARM 04/26/2016 1:08 PM PROTIME POCT 21.90 secsINR POCT 1.8 05/03/2016 3:48 PM PROTIME POCT 16.60 secsINR POCT 1.4 05/10/2016 3:45 PM PROTIME POCT 22.50 secsINR POCT 1.9 05/17/2016 3:58 PM PROTIME POCT 35.90 secsINR POCT 3.0 06/07/2016 4:02 PM PROTIME POCT 32.10 secsINR POCT 2.7 07/05/2016 3:45 PM PROTIME 63.80 secsINR 5.5 07/11/2016 8:15 AM PROTIME POCT 33.60 secsINR POCT 2.8 History Of Immunizations Name Date Admin Mfg Name Mfg Code Trade Name Lot# Route Inj Vis Given Vis Pub CVX Influenza 01/24/2011 sanofi pasteur PMC Fluzone [id number] Intramuscular Left Arm 01/24/2011 10/27/2010 111 Influenza 02/29/2012 sanofi pasteur PMC Fluzone [id number] Intramuscular Left Deltoid 02/29/2012 10/03/2011 141 X 02/29/2012 [employer] MSD Pneumovax 23 [id number] Intramuscular Right Deltoid 02/29/2012 01/06/2009 999 Td 08/13/2012 sanofi pasteur PMC TENIVAC [id number] Intramuscular Left Deltoid 08/14/2012 04/26/2011 113 Influenza 02/22/2013 bannerofi pasteur PMC Fluzone [id number] Intramuscular Left Deltoid 02/22/2013 10/26/2012 141 Influenza 02/11/2014 bannerofi pasteur PMC Fluzone [id number] Intramuscular Left Deltoid 02/11/2014 11/19/2013 141 Pneumococcal 04/07/[facility] [id number] Intramuscular Left Deltoid 04/07/2014 05/30/2012 133 Influenza 11/07/2014 Not Entered NE Fluvirin Intramuscular Left Arm 11/0704/03/2016 141 Influenza 12/15/2015 Not Entered NE Not Entered [id number] Intramuscular Left Arm 12/15/2015 11/07/2014 141 Pneumococcal 02/20/2015 Not Entered NE Pneumovax 23 Not Entered Not Entered 05/13/2016 04/03/2016 33 History of Past Illness Name Date of Onset Comments Heart Valve Replacement Mar 05 2009 10:37AM Atrial Fibrillation Mar 30 2009 8:50AM Heart disease Hyperlipidemia, Mixed Hypertension Apr 07 2009 8:55AM Hyperlipidemia, unspecified Apr 07 2009 8:55AM Heart Valve Replacement Apr 07 2009 8:55AM Chronic Obstructive Pulmonary Disease Hypothyroidism Heart Valve Replacement 06/12/2012 Cellulitis/Abscess, unspecified Oct 26 2009 10:53AM Cellulitis/Abscess, unspecified Oct 30 2009 8:11AM Cellulitis/Abscess, unspecified Nov 02 2009 8:10AM Heart Valve Replacement Nov 05 2009 8:22AM Cellulitis/Abscess, unspecified Nov 05 2009 8:22AM Hypertension Nov 16 2009 10:45AM Cellulitis/Abscess, unspecified Nov 16 2009 10:45AM Coronary Artery Disease Dec 15 2009 11:08AM Hypertension Dec 15 2009 11:08AM Hypercholesterolemia Dec 15 2009 11:08AM Hyperthyroidism Dec 15 2009 11:08AM Flu Feb 09 2010 12:06PM Coronary Artery Disease Mar 02 2010 4:36PM Hyperlipidemia Mar 02 2010 4:36PM Hyperthyroidism Mar 02 2010 4:36PM Hypertension Mar 18 2010 3:06PM Hyperlipidemia, unspecified Mar 18 2010 3:06PM Hypothyroidism, Acquired Mar 18 2010 3:06PM Heart Valve Replacement Apr 12 2010 1:56PM Hypertension Jan 24 2011 3:19PM Hyperglycemia Jan 24 2011 3:19PM Heart Valve Replacement Jan 24 2011 3:19PM Heart Valve Replacement Mar 09 2011 7:55AM Cough Jun 23 2011 11:00AM Rhinitis, Allergic Jul 07 2011 2:18PM Chronic Obstructive Pulmonary Disease Jul 07 2011 2:18PM Osteoarthritis Nov 24 2011 3:28PM Hyperlipidemia, unspecified Dec 26 2011 1:44PM Osteoarthritis Dec 26 2011 1:44PM Flu and Pneumonia vaccines Feb 29 2012 12:20PM Coronary Artery Disease May 11 2012 7:40AM Hyperlipidemia May 11 2012 7:40AM Hypothyroidism, Acquired May 11 2012 7:40AM Hyperglycemia Jun 12 2012 1:34PM Hyperlipidemia, Mixed Jun 12 2012 1:34PM Heart Valve Replacement Jun 12 2012 1:34PM Hyperlipidemia, unspecified Jun 12 2012 1:34PM Hypothyroidism, Acquired Jun 12 2012 1:34PM Heart Valve Replacement Jul 05 2012 2:14PM Td Aug 14 2012 8:06AM Heart Valve Replacement Sep 04 2012 8:30AM Coronary Artery Disease Dec 04 2012 12:45PM Hyperlipidemia Dec 04 2012 12:45PM Hypothyroidism, Acquired Dec 04 2012 12:45PM Hyperlipidemia, unspecified Dec 11 2012 1:58PM Hypothyroidism, Acquired Dec 11 2012 1:58PM Flu Feb 27 2013 8:03AM Heart Valve Replacement Mar 15 2013 11:20AM Coronary Artery Disease Apr 15 2013 12:35PM Hyperlipidemia Apr 15 2013 12:35PM Hypothyroidism, Acquired Apr 15 2013 12:35PM Low Back Pain May 21 2013 2:01PM Heart Valve Replacement May 21 2013 2:01PM Hypothyroidism, Acquired Jul 08 2013 11:12AM Hypertension Aug 12 2013 11:00AM Heart Valve Replacement Aug 27 2013 4:03PM Hypertension Aug 27 2013 4:03PM Coronary Artery Disease Jan 20 2014 11:20AM Hypertension Jan 20 2014 11:20AM Hyperlipidemia Jan 20 2014 11:20AM Hypothyroidism, Acquired Jan 20 2014 11:20AM Hypertension Feb 11 2014 9:00AM Hyperlipidemia, unspecified Feb 11 2014 9:00AM Flu Feb 11 2014 9:00AM History of Atrial fibrillation Mar 24 2014 11:14AM Hypertension Mar 24 2014 11:14AM Essential Hypertension Mar 31 2014 1:23PM Heart valve replaced Apr 01 2014 9:11AM Hypertension Apr 07 2014 3:03PM Pneumococcus Apr 09 2014 3:54PM Hypertension Apr 22 2014 3:28PM Essential Hypertension May 27 2014 1:38PM Hypothyroidism, Acquired May 27 2014 1:38PM Heart Valve Replacement May 27 2014 1:38PM Hypertension Aug 18 2014 5:46PM Hyperlipidemia Aug 18 2014 5:46PM Hypothyroidism, Acquired Aug 18 2014 5:46PM Prostate cancer screening Aug 18 2014 5:46PM Hyperglycemia Aug 18 2014 5:46PM Heart Valve Replacement Sep 11 2014 1:42PM Hyperlipidemia, Mixed Sep 11 2014 1:42PM Thoracic back pain May 14 2015 3:24PM Lumbar back pain May 14 2015 3:24PM Atrial Fibrillation May 26 2015 2:17PM Constipation May 26 2015 2:17PM Hypothyroidism Feb 01 2016 1:13PM Hypertension Feb 01 2016 1:13PM Hyperlipemia Feb 01 2016 1:13PM Hypothyroidism, Acquired Feb 02 2016 11:21AM Thoracic back pain Feb 09 2016 2:59PM Atrial Fibrillation Apr 14 2016 3:12PM Hematoma Apr 14 2016 3:12PM Brain bleed Aug 03 2016 11:10AM Payers Insurance Name Company Name Plan Name Plan Number Policy Number Policy Group Number Start Date Medicare RHC Medicare RHC [id number] N/A BCBS Bc[facility] [id number] March Medicare Part A Medicare Part A [id number] N/A Medicare Part A Medicare - Lab/Xray [id number] N/A Medicare Part B Medicare Of [place] [id number] Wednesday, August 02, 1995 History of Encounters Visit Date Visit Type Provider 08/03/2016 Office visit Ant Huber MD 04/14/2016 Office visit Ant Huber MD 02/09/2016 Office visit Ant Huber MD 01/18/2016 [facility] J[facility] MD 12/30/2015 [facility] Jansen MD 05/26/2015 Office visit Ant Huber MD 11/01/2014 [facility] Jansen MD 09/11/2014 Office visit Ant Huber MD 05/27/2014 Office visit 05/27/2014 Office visit Ant Huber MD 05/26/2014 [facility] J[facility] MD 04/22/2014 Office visit Ant Huber MD 04/07/2014 Office visit Ant Huber MD 03/31/2014 Office visit Ant Huber MD 03/24/2014 [facility] Jansen MD 03/24/2014 Office visit Malina Hendricks APRN 02/11/2014 Office visit Ant Huber MD 08/27/2013 Office visit Ant Huber MD 08/12/2013 Office visit Malina NChapito Hendricks APRN 07/08/2013 Office visit Ant Huber MD 06/05/2013 [facility] Gemma Chinchilla MD 05/21/2013 Office visit Ant Huber MD 05/15/2013 [facility] Winston Jansen MD 05/11/2013 [facility] Winston Jansen MD 02/22/2013 Nurse visit Ant Huber MD 12/11/2012 Office visit Ant Huber MD 09/04/2012 Office visit Ant Huber MD 08/13/2012 Nurse visit Ant Huber MD 06/12/2012 Office visit Ant Huber MD 02/29/2012 Nurse visit Ant Huber MD 12/26/2011 Office visit Ant Huber MD 11/24/2011 Office visit Ant Huber MD 11/07/2011 [facility] Pennie Casas MD 11/06/2011 [facility] Pennie Casas MD 11/05/2011 [facility] 11/04/2011 [facility] 11/03/2011 [facility] 11/01/2011 [facility] 08/25/2011 [facility] Winston Jansen MD 07/07/2011 Office visit Ant Huber MD 01/24/2011 Office visit Ant Huber MD 03/18/2010 Office visit Ant Huber MD 02/09/2010 Nurse visit Ant Huber MD 11/16/2009 Office visit Ant Huber MD 11/05/2009 Office visit Ant Huber MD 11/02/2009 Office visit Ant Huber MD 10/30/2009 Office visit Ant Huber MD 10/26/2009 Office visit Ant Huber MD 04/07/2009 Office visit Ant Huber MD 03/05/2009 Laboratory Ant Huber MD 03/03/2009 Nurse visit Ant Huber MD 01/27/2009 Laboratory Ant Huber MD 12/10/2008 Laboratory Ant Huber MD
--- OUTSIDE RECORDS SUMMARY | 2017-02-25 05:19 | XMS REPORT ---
Author Author Winston Jansen Organization [facility] Address [address] [place], [place] [id number] Care Team Providers Care Ict Account Manager Name Role Phone Winston Jansen PCP Allergies and Adverse Reactions Name Reaction Notes NO KNOWN DRUG ALLERGIES Plan of Treatment Planned Activity Comments Planned Date Planned Time Plan/Goal X-RAY EXAM THORAC SPINE 2VWS 05/14/2015 12:00 AM X-RAY EXAM L-S SPINE /3 VWS 05/14/2015 12:00 AM BREATHING CAPACITY TEST 07/07/2011 12:00 AM COMPLETE CBC W/AUTO DIFF WBC 01/20/2014 12:00 AM ASSAY THYROID STIM HORMONE 01/20/2014 12:00 AM PROTHROMBIN TIME 04/01/2014 12:00 AM COMPLETE CBC W/AUTO DIFF WBC 05/27/2014 12:00 AM COMPREHEN METABOLIC PANEL 05/27/2014 12:00 AM LIPID PANEL 05/27/2014 12:00 AM PROTHROMBIN TIME 05/27/2014 12:00 AM ASSAY THYROID STIM HORMONE 05/27/2014 12:00 AM LIPID PANEL 08/18/2014 12:00 AM Medications Active Name Start Date Estimated Completion Date SIG Comments aspirin 81 mg oral tablet take 1 tablet (81 mg) by oral route once daily Lumigan 0.03 % ophthalmic drops instill 1 drop into affected eye(s) by ophthalmic route once daily in the evening finasteride 5 mg oral tablet 04/07/2014 07/01/2015 take 1 tablet (5 mg) by oral route once daily for 90 days levothyroxine 100 mcg oral tablet 08/08/2014 TAKE ONE TABLET BY MOUTH ONCE DAILY atenolol 50 mg oral tablet 09/11/2014 09/06/2015 take 1 tablet by oral route daily for 30 days Coumadin 2.5 mg oral tablet 09/11/2014 09/06/2015 take 1 tablet (2.5 mg) by oral route once daily for 90 days, on Wed et Sat take 1/2 tablet pilocarpine HCl 2 % ophthalmic drops 09/15/2014 INSTILL ONE DROP INTO EACH EYE EVERY 12 HOURS finasteride 5 mg oral tablet 04/10/2015 TAKE [...] once daily at bedtime for 30 days Pacerone 200 mg oral tablet 09/11/2014 05/09/2015 take 1 tablet (200 mg) by oral route once daily for 30 days Discontinued Name Start Date [...] each nostril by intranasal route once daily [place] 5-325 mg oral tablet 05/21/2013 take 1 [...] Description Status Onset Heart disease Active Hyperlipidemia, mixed Active Heart Valve Replacement Active 06/12/2012 Vital Signs Date Time BP-Sys(mm[Hg] BP-Yokasta(mm[Hg]) HR(bpm) RR(rpm) Temp WT HT HC BMI BSA BMI Percentile O2 Sat(%) 09/11/2014 1:34:00 PM 108 mmHg 70 mmHg [...] 12:00 AM Immunization administration, Medicare flu Reviewed 03/09/2011 12:00 AM CAPILLARY BLOOD DRAW Reviewed 03/09/2011 12:00 AM PROTHROMBIN TIME Returned 06/23/2011 12:00 AM CHEST X-RAY 2VW FRONTAL&LATL Returned 03/05/2009 12:00 AM PROTHROMBIN TIME Reviewed 02/29/2012 12:00 AM PNEUMOCOCCAL VACC 23 BAILEY IM Reviewed 02/29/2012 12:00 AM Flu Injection 3 Years And Above [facility]# [address]-17 RHC Reviewed 05/11/2012 12:00 AM COMPLETE CBC W/AUTO DIFF WBC Reviewed 05/11/2012 12:00 AM COMPREHEN METABOLIC PANEL Reviewed 05/11/2012 12:00 AM LIPID PANEL Reviewed 05/11/2012 12:00 AM ASSAY THYROID STIM HORMONE Reviewed 07/05/2012 12:00 AM PROTHROMBIN TIME Reviewed 08/13/2012 12:00 AM IMMUNIZATION ADMIN Reviewed 08/13/2012 12:00 AM TD VACCINE NO PRSRV 7/> IM Reviewed 12/04/2012 12:00 AM COMPLETE CBC W/AUTO DIFF WBC Reviewed 12/04/2012 12:00 AM COMPREHEN METABOLIC PANEL Reviewed 12/04/2012 12:00 AM LIPID PANEL Reviewed 12/04/2012 12:00 AM ASSAY THYROID STIM HORMONE Reviewed 02/22/2013 12:00 AM Flu Injection 3 Years And Above [facility]# [id number] [facility] Reviewed 03/15/2013 12:00 AM PROTHROMBIN TIME Reviewed 04/15/2013 12:00 AM COMPLETE CBC W/AUTO [...] 02/19/2009 11:50 AM LDL 83.0 mg/dLHDL 38.0 mg/dLCHOLESTEROL 158 mg/ dLTRIGLYCERIDES 86.0 mg/dLLDL 83.0 mg/dLCHOLESTEROL 158 mg/dLHDL 38.0 mg/ dLTRIGLYCERIDES 86.0 mg/dLRDW CV 13.80 %RBC 4.64 MCHC 33.80 g/dLMPV 9.0 fL%NEUT 59.60 %%MONO 10.10 %%BASO 0.3 %MCH 31.0 pg#LYMP 1.07 #EOS 0.12 PLT 197 HCT 42.60 %MCV 92.0 fLWBC 4.0 #MONO 0.40 %EOS 3.0 %HGB 14.40 g/dL#BASO 0.01 %LYMP 27.0 %#NEUT 2.37 %LYMP 27.0 %#BASO 0.01 #LYMP 1.07 #MONO 0.40 MCHC 33.80 g/dL% MONO 10.10 %WBC 4.0 %NEUT 59.60 %MCH 31.0 pg%BASO 0.3 %PLT 197 #EOS 0.12 HGB 14.40 g/dLRDW CV 13.80 %MPV 9.0 fLHCT 42.60 %%EOS 3.0 %RBC 4.64 MCV 92.0 fL# NEUT 2.37 PSA TOTAL 0.750 ng/mLPSA TOTAL 0.750 ng/mLGLUCOSE 114 SODIUM 141.0 mmol/LPOTASSIUM 4.30 mmol/LCHLORIDE 108.0 mmol/LCO2 26.0 mmol/LBUN 25.0 mg/ dLCREATININE 1.10 mg/dLSGOT/AST 34.0 IU/LSGPT/ALT 36.0 IU/LALK PHOS 86.0 IU/ LTOTAL PROTEIN 6.80 g/dLALBUMIN 3.90 g/dLTOTAL BILI 0.90 mg/dLCALCIUM 9.50 mg/ dLeGFR >60 mL/minGLUCOSE 114 SODIUM 141.0 mmol/LPOTASSIUM 4.30 mmol/LCHLORIDE 108.0 mmol/LCO2 26.0 mmol/LBUN 25.0 mg/dLCREATININE 1.10 mg/dLSGOT/AST 34.0 IU/ LSGPT/ALT 36.0 IU/LALK PHOS 86.0 IU/LTOTAL PROTEIN 6.80 g/dLALBUMIN 3.90 g/ dLTOTAL BILI 0.90 mg/dLCALCIUM 9.50 mg/dLeGFR >60 mL/min 03/05/2009 10:24 AM PT PPP Cont Qn 16.50 secsINR PPP Qn 1.8 Coumadin Plan take 4.5mg T et Th, 3mg on SMWFS INR Target Range 2.0-3.0 05/20/2009 1:02 PM INR 5.7 PROTIME 52.30 secs 06/03/2009 9:31 AM INR 2.0 PROTIME 22.10 secs 06/15/2009 3:09 PM INR 3.5 PROTIME 38.70 secs 07/13/2009 10:50 AM PROTIME 46.80 secsINR 4.2 08/24/2009 10:09 AM PROTIME 23.10 secsINR 2.1 10/07/2009 8:43 AM PROTIME 47.40 secsINR 4.3 10/26/2009 12:57 PM PROTIME 41.50 secsINR 3.7 11/05/2009 9:05 AM PROTIME 30.60 secsINR 2.8 12/15/2009 11:02 AM PROTIME 24.80 secsINR 2.3 01/12/2010 11:36 AM PROTIME 17.40 secsINR 1.6 02/09/2010 11:30 AM PROTIME 16.60 secsINR 1.5 03/02/2010 1:25 PM PROTIME POCT 59.20 secsINR POCT 4.9 03/15/2010 11:32 AM PROTIME 36.50 secsINR 3.3 TRIGLYCERIDES 105.0 mg/ dLCHOLESTEROL 137.0 mg/dLHDL 37.0 mg/dLLDL (CALC) 79.0 mg/dLTSH 2.120 uIU/mLWBC 5.0 RBC 4.59 HGB 14.20 g/dLHCT 44.40 %MCV 97.0 fLMCH 30.90 pgMCHC 32.0 g/dLRDW CV 14.0 %MPV 9.20 fLPLT 207 %NEUT 64.70 %%LYMP 22.10 %%MONO 11.0 %%EOS 2.0 %% BASO 0.20 %#NEUT 3.25 #LYMP 1.11 #MONO 0.55 #EOS 0.10 #BASO 0.01 GLUCOSE 103.0 mg/dLSODIUM 142.0 mmol/LPOTASSIUM 5.20 mmol/LCHLORIDE 109.0 mmol/LCO2 27.0 mmol/ LBUN 24.0 mg/dLCREATININE 1.20 mg/dLSGOT/AST 22.0 IU/LSGPT/ALT 21.0 IU/LALK PHOS 80.0 IU/LTOTAL PROTEIN 6.90 g/dLALBUMIN 4.0 g/dLTOTAL BILI 0.80 mg/ dLCALCIUM 9.70 mg/dLeGFR 58 04/12/2010 1:57 PM PROTIME POCT 38.60 secsINR [...] PM PROTIME POCT 69.50 secsINR POCT 5.8 07/19/2011 3:48 PM PROTIME POCT 37.80 secsINR POCT 3.2 08/22/2011 12:05 PM PROTIME POCT 37.30 secsINR POCT 3.1 10/03/2011 11:55 AM PROTIME POCT 32.60 secsINR POCT 2.7 11/08/2011 9:12 AM PROTIME 26.40 secsINR 2.5 11/10/2011 10:00 AM PROTIME 23.10 secsINR 2.2 GLUCOSE 112.0 mg/dLSODIUM 142.0 mmol/LPOTASSIUM 3.80 mmol/LCHLORIDE 106.0 mmol/LCO2 24.0 mmol/LBUN 18.0 mg/ dLCREATININE 1.10 mg/dLCALCIUM 9.10 mg/dLeGFR 60 11/11/2011 10:01 AM GLUCOSE 124.0 mg/dLSODIUM 141.0 mmol/LPOTASSIUM 4.10 mmol/ LCHLORIDE 105.0 mmol/LCO2 24.0 mmol/LBUN 19.0 mg/dLCREATININE 1.20 mg/dLCALCIUM 9.40 mg/dLeGFR 58 PROTIME 30.40 secsINR 2.9 11/15/2011 8:56 AM PROTIME 49.20 secsINR 4.8 GLUCOSE 98.0 mg/dLSODIUM 141.0 mmol/LPOTASSIUM 3.70 mmol/LCHLORIDE 108.0 mmol/LCO2 24.0 mmol/LBUN 14.0 mg/ dLCREATININE 1.20 mg/dLCALCIUM 9.20 mg/dLeGFR 58 11/18/2011 7:30 AM GLUCOSE 91.0 mg/dLSODIUM 142.0 mmol/LPOTASSIUM 3.70 mmol/ LCHLORIDE 108.0 mmol/LCO2 24.0 mmol/LBUN 13.0 mg/dLCREATININE 1.20 mg/dLCALCIUM 8.80 mg/dLeGFR 58 PROTIME 46.90 secsINR 4.6 11/21/2011 1:40 PM WBC 5.9 RBC 4.08 HGB 12.10 g/dLHCT 38.30 %MCV 94.0 fLMCH 29.70 pgMCHC 31.60 g/dLRDW CV 15.90 %MPV 8.90 fLPLT 282 %NEUT 60.80 %%LYMP 21.20 %%MONO 13.80 %%EOS 3.90 %%BASO 0.30 %#NEUT 3.60 #LYMP 1.26 #MONO 0.82 # EOS 0.23 #BASO 0.02 GLUCOSE 98.0 mg/dLSODIUM 142.0 mmol/LPOTASSIUM 4.10 mmol/ LCHLORIDE 106.0 mmol/LCO2 25.0 mmol/LBUN 24.0 mg/dLCREATININE 1.80 mg/dLSGOT/ AST 34.0 IU/LSGPT/ALT 35.0 IU/LALK PHOS 99.0 IU/LTOTAL PROTEIN 6.30 g/dLALBUMIN 3.50 g/dLTOTAL BILI 0.50 mg/dLCALCIUM 9.20 mg/dLeGFR 36 TRIGLYCERIDES 226.0 mg/ dLCHOLESTEROL 137.0 mg/dLHDL 32.0 mg/dLLDL (CALC) 60.0 mg/dLPSA TOTAL 0.560 ng/ mLT4 8.10 ug/dLT3 TOTAL 66.0 ng/dLTSH 6.40 uIU/mL 11/21/2011 7:30 PM PROTIME 37.40 secsINR 3.6 COLOR YELLOW APPEARANCE CLEAR SPEC GRAV 1.010 pH 5.5 PROTEIN NEGATIVE GLUCOSE NEGATIVE KETONE NEGATIVE BILIRUBIN NEGATIVE BLOOD MODERATE NITRITE NEGATIVE LEUK SCREEN NEGATIVE CASTS/ LPF NEGATIVE CRYSTALS NEGATIVE MUCOUS THRDS FEW BACTERIA NEGATIVE EPITH CELLS NEGATIVE TRICHOMONAS NEGATIVE YEAST NEGATIVE 11/28/2011 7:45 AM PROTIME 42.80 secsINR 4.2 [...] %MCV 93.0 fLMCH 31.0 pgMCHC 33.40 g/dLRDW CV 14.50 %MPV 9.10 fLPLT 193 %NEUT 55.30 %%LYMP 29.50 %%MONO 10.70 %%EOS 4.30 %%BASO 0.20 %#NEUT 2.32 #LYMP 1.24 #MONO 0.45 #EOS 0.18 #BASO 0.01 GLUCOSE 106.0 mg/dLSODIUM 144.0 mmol/LPOTASSIUM 4.40 mmol/LCHLORIDE 108.0 mmol/LCO2 23.0 mmol/LBUN 21.0 mg/dLCREATININE 1.10 mg/dLSGOT/AST 33.0 IU/ LSGPT/ALT 39.0 IU/LALK PHOS 69.0 IU/LTOTAL PROTEIN 6.90 g/dLALBUMIN 3.80 g/ dLTOTAL BILI 1.10 mg/dLCALCIUM 9.90 mg/dLeGFR 60 TRIGLYCERIDES 122.0 mg/ dLCHOLESTEROL 152.0 mg/dLHDL 43.0 mg/dLLDL (CALC) 85.0 mg/dLTSH 6.620 uIU/mL 06/18/2012 12:32 [...] %MCV 93.0 fLMCH 30.50 pgMCHC 32.90 g/dLRDW CV 14.0 %MPV 8.80 fLPLT 201 %NEUT 56.20 %%LYMP 24.60 %%MONO 14.0 %%EOS 5.0 %%BASO 0.20 %#NEUT 2.72 #LYMP 1.19 #MONO 0.68 #EOS 0.24 # BASO 0.01 PROTIME 50.70 secsINR 5.0 TRIGLYCERIDES 119.0 mg/dLCHOLESTEROL 133.0 mg/dLHDL 34.0 mg/dLLDL (CALC) 75.0 mg/dLGLUCOSE 118.0 mg/dLSODIUM 140.0 mmol/ LPOTASSIUM 4.30 mmol/LCHLORIDE 107.0 mmol/LCO2 24.0 mmol/LBUN 25.0 mg/ dLCREATININE 1.10 mg/dLSGOT/AST 33.0 IU/LSGPT/ALT 36.0 IU/LALK PHOS 84.0 IU/ LTOTAL PROTEIN 7.0 g/dLALBUMIN 4.20 g/dLTOTAL BILI 1.50 mg/dLCALCIUM 9.80 mg/ dLeGFR 60 TSH 7.90 uIU/mL 12/07/2012 12:21 PM [...] %MCV 94.0 fLMCH 31.30 pgMCHC 33.30 g/dLRDW CV 14.10 %MPV 9.30 fLPLT 353 %NEUT 76.70 %%LYMP 15.0 %%MONO 6.30 %%EOS 1.70 %%BASO 0.30 %# NEUT 5.51 #LYMP 1.08 #MONO 0.45 #EOS 0.12 #BASO 0.02 GLUCOSE 106.0 mg/dLSODIUM 141.0 mmol/LPOTASSIUM 4.50 mmol/LCHLORIDE 106.0 mmol/LCO2 23.0 mmol/LBUN 32.0 mg /dLCREATININE 1.20 mg/dLSGOT/AST 34.0 IU/LSGPT/ALT 32.0 IU/LALK PHOS 96.0 IU/ LTOTAL PROTEIN 7.10 g/dLALBUMIN 3.70 g/dLTOTAL BILI 1.50 mg/dLCALCIUM 10.60 mg/ dLeGFR 58 TRIGLYCERIDES 93.0 mg/dLCHOLESTEROL 111.0 mg/dLHDL 28.0 mg/dLLDL (CALC ) 64.0 mg/dLTSH 4.910 uIU/mL 06/11/2013 8:59 AM PROTIME 24.30 secsINR 2.3 06/12/2013 9:11 AM PROTIME 25.30 secsINR 2.4 06/19/2013 8:35 AM WBC 7.8 RBC 3.81 HGB 11.60 g/dLHCT 35.40 %MCV 93.0 fLMCH 30.40 pgMCHC 32.80 g/dLRDW CV 14.30 %MPV 9.0 fLPLT 483 %NEUT 66.80 %%LYMP 19.20 %%MONO 11.60 %%EOS 2.10 %%BASO 0.30 %#NEUT 5.18 #LYMP 1.49 #MONO 0.90 #EOS 0.16 #BASO 0.02 GLUCOSE 98.0 mg/dLSODIUM 138.0 mmol/LPOTASSIUM 4.40 mmol/LCHLORIDE 101.0 mmol/LCO2 25.0 mmol/LBUN 26.0 mg/dLCREATININE 1.0 mg/dLSGOT/AST 30.0 IU/ LSGPT/ALT 28.0 IU/LALK PHOS 113.0 IU/LTOTAL PROTEIN 6.0 g/dLALBUMIN 3.10 g/ dLTOTAL BILI 1.40 mg/dLCALCIUM 8.70 mg/dLeGFR >60 mL/min/1.73 m2 06/19/2013 8:36 AM PROTIME 88.80 secsINR 7.9 PTT 61.10 secsTSH 9.470 uIU/ mLTRIGLYCERIDES 76.0 mg/dLCHOLESTEROL 105.0 mg/dLHDL 28.0 mg/dLLDL (CALC) 62.0 mg/dL 06/20/2013 9:45 AM PROTIME [...] g/dLALBUMIN 4.20 g/dLTOTAL BILI 1.40 mg/dLCALCIUM 10.10 mg/dLeGFR 60 TRIGLYCERIDES 158.0 mg/ dLCHOLESTEROL 154.0 mg/dLHDL 39.0 mg/dLLDL (CALC) 83.0 mg/dL 09/02/2014 1:20 PM PSA TOTAL 0.10 ng/mLTSH 0.730 uIU/mLEst Avg Glucose 108.3 mg/ dLGLUCOSE 108.0 mg/dLSODIUM 143.0 mmol/LPOTASSIUM 4.40 mmol/LCHLORIDE 107.0 mmol /LCO2 26.0 mmol/LBUN 30.0 mg/dLCREATININE 1.20 mg/dLSGOT/AST 29.0 IU/LSGPT/ALT 33.0 IU/LALK PHOS 83.0 IU/LTOTAL PROTEIN 6.90 g/dLALBUMIN 4.10 g/dLTOTAL BILI 1.30 mg/dLCALCIUM 9.40 mg/dLeGFR 58 WBC 5.5 RBC 4.65 HGB 14.70 g/dLHCT 44.50 % MCV 96.0 fLMCH 31.60 pgMCHC 33.0 g/dLRDW CV 14.10 %MPV 9.0 fLPLT 195 %NEUT 68.60 %%LYMP 18.70 %%MONO 9.80 %%EOS 2.50 %%BASO 0.40 %#NEUT 3.79 #LYMP 1.03 # MONO 0.54 #EOS 0.14 #BASO 0.02 TRIGLYCERIDES 94.0 mg/dLCHOLESTEROL 134.0 mg/ dLHDL 39.0 mg/dLLDL (CALC) 76.0 mg/dL 01/06/2015 10:24 AM PROTIME POCT 21.30 secsINR POCT 1.8 01/20/2015 11:28 AM PROTIME POCT 25.20 secsINR POCT 2.1 03/03/2015 8:22 AM PROTIME POCT 33.30 secsINR POCT 2.8 03/24/2015 9:22 AM PROTIME POCT 22.50 secsINR POCT 1.9 04/08/2015 8:12 AM PROTIME POCT 18.10 secsINR POCT 1.5 04/21/2015 2:42 PM PROTIME POCT 33.50 secsINR POCT 2.8 History Of Immunizations Name Date Admin Mfg Name Mfg Code Trade Name Lot# Route Inj Vis Given Vis Pub CVX Influenza 01/24/2011 sanofi pasteur PMC Fluzone [id number] Intramuscular Left Arm 01/24/2011 10/27/2010 111 Influenza 02/29/2012 sanofi pasteur PMC Fluzone [id number] Intramuscular Left Deltoid 02/29/2012 10/03/2011 141 Pneumococcal 02/29/2012 [employer] MSD Pneumovax 23 [id number] Intramuscular Right Deltoid 02/29/2012 01/06/2009 999 Td 08/13/2012 sanofi pasteur PMC TENIVAC [id number] Intramuscular Left Deltoid 08/14/2012 04/26/2011 113 Influenza 02/22/2013 sanofi pasteur PMC Fluzone [id number] Intramuscular Left Deltoid 02/22/2013 10/26/2012 141 Influenza 02/11/2014 sanofi pasteur PMC Fluzone [id number] Intramuscular Left Deltoid 02/11/2014 11/19/2013 141 PCV 04/07/2014 Opovf-Auzvmv-Fscrpzf-Praxis WAL Prevnar 13 [id number] Intramuscular Left Deltoid 04/07/2014 05/30/2012 133 History of Past Illness Name Date of Onset Comments Heart Valve Replacement Mar 05 2009 10:37AM Atrial Fibrillation Mar 30 2009 8:50AM Heart disease Hyperlipidemia, mixed Hypertension Apr 07 2009 8:55AM Hyperlipidemia, unspecified [...] Hyperlipidemia Dec 04 2012 12:45PM Hypothyroidism, Acquired Sep 3 2013 12:45PM Hyperlipidemia, unspecified Dec 11 2012 1:58PM [...] Lumbar back pain May 14 2015 3:24PM Payers Insurance Name Company Name Plan Name Plan Number Policy Number Policy Group Number Start Date Medicare Part A Medicare Part A [id number] N/A [id number] March Medicare Part B Medicare Of [place] [id number] Wednesday, 1995 History of Encounters Visit Date Visit Type Provider 11/01/2014 Lexy Jansen MD 09/11/2014 Office visit Ant Huber MD 05/27/2014 Office visit 05/27/2014 Office visit Ant Huber MD 05/26/2014 Hospital Winston Jansen MD 04/22/2014 Office visit Ant Huber MD 04/07/2014 Office visit Ant Huber MD 03/31/2014 Office visit Ant Huber MD 03/24/2014 Hospital Winston Jansen MD 03/24/2014 Office visit Malina Hendricks [employer] 02/11/2014 Office visit Ant Huber MD 08/27/2013 Office visit Ant Huber MD 08/12/2013 Office visit Malina Hendricks ITALIAN TE[employer] 07/08/2013 Office visit Ant Huber MD 06/05/2013 [facility] Gemma Chinchilla MD 05/21/2013 Office visit Ant Huber MD 05/15/2013 Hospital Winston Jansen MD 05/11/2013 [facility] Winston Jansen MD 02/22/2013 Nurse visit Ant Huber MD 12/11/2012 Office visit Ant Huber MD 09/04/2012 Office visit Ant Huber MD 08/13/2012 Nurse visit Ant Huber MD 06/12/2012 Office visit Ant Huber MD 02/29/2012 Nurse visit Ant Huber MD 12/26/2011 Office visit Ant Huber MD 11/24/2011 Office visit Ant Huber MD 11/07/2011 Hospital Penine Casas MD 11/06/2011 [facility] Pennie Casas MD 11/05/2011 [facility] 11/04/2011 [facility] 11/03/2011 [facility] 11/01/2011 [facility] 08/25/2011 [facility] Winston Jansen MD 07/07/2011 Office visit Ant [...]
--- OUTSIDE RECORDS SUMMARY | 2017-02-25 05:21 | XMS REPORT | CCD ---
Author Author KEM SHEIKH Organization Unknown Address [address] [address] [place] [address] Care Team Providers Care Superintendent [employer] Name Role Phone RENETTA BROWN DO Attphys RENETTA BROWN DO Prisurg Allergies Allergy Code Allergy Type Reaction Status 13C UREA 347178 Drug allergy Active DOXYCYCLINE 3640 Drug allergy NOT SURE Active Active Medications Medication Code Dose Units Frequency Route Modification Start Date/Time Aspirin 81MG Oral Tablet 874799 81 MILLIGRAMS EVERY 24 HOURS ORAL 06/10/2013 12:00 Prescription Detail 81 MILLIGRAMS ORAL EVERY 24 HOURS Finasteride 5MG Oral Tablet 834747 5 MILLIGRAMS EVERY 24 HOURS ORAL 06/10/2013 12:00 Prescription Detail 5 MILLIGRAMS ORAL EVERY 24 HOURS Pilocarpine HCl 2% Ophthalmic Solution 1963861 1 EACH EVERY 24 HOURS OPTHALMIC 06/10/2013 12:00 Prescription Detail 1 EACH OPTHALMIC EVERY 24 HOURS Timolol Maleate 0.5% Ophthalmic Solution 679609 1 EACH EVERY 12 HOURS OPTHALMIC 06/10/2013 12:00 Prescription Detail 1 EACH OPTHALMIC EVERY 12 HOURS Problems Problem Code Start Date Resolved Date Status Weakness 78672312 06/04/2013 Active Elevated INR 594290859 06/04/2013 Active Hematuria 01336677 06/04/2013 Active Procedures Procedure Code Procedure Type Date FOREARM, [address] 03/08/2016 KNEE 4V MIN 84680128 SNOMED CT 03/08/2016 Results PT/PTT - Collect Date/Time: 03/08/2016 17:00 Test Name Code Test Result Test Units Test Ref Range PROTIME 5964-2 24.9 SEC L=9.9 H=11.9 INR 65530-9 2.3 PTT 3173-2 29.6 SEC L=22.2 H=37.2 Function Status Unknown or Not Available. History of Immunizations Immunization Code Date Td (adult), adsorbed 09 08/13/2012 influenza, split (incl. purified surface antigen) 15 01/30/2003 influenza, split (incl. purified surface antigen) 15 02/10/2004 influenza, split (incl. purified surface antigen) 15 02/16/2006 influenza, split (incl. purified surface antigen) 15 01/21/2008 Pneumococcal conjugate PCV 13 133 04/07/2014 Plan of Treatment Unknown or Not Available. Social History Smoking Status Code Start Date End Date Never smoker [id number] Vital Signs Unknown or Not Available. Function Status Unknown or Not Available. Goals Unknown or Not Available. ASSESSMENTS Unknown or Not Available. Health Concerns Section Unknown or Not Available.
--- OUTSIDE RECORDS SUMMARY | 2017-02-25 05:21 | XMS REPORT ---
Author Author Ant Huber [facility] Address [address] [place], [place] [id number] Care Team Providers Care Channel Process Plant Operator Name Role Phone Ant Huber PCP Unavailable Allergies and Adverse Reactions Name Reaction Notes NO KNOWN DRUG ALLERGIES Plan of Treatment Planned Activity Comments Planned Date Planned Time Plan/Goal COMPLETE CBC W/AUTO DIFF WBC 01/20/2014 12:00 AM ASSAY THYROID STIM HORMONE 01/20/2014 12:00 AM PROTHROMBIN TIME 04/01/2014 12:00 AM COMPLETE CBC W/AUTO DIFF WBC 05/27/2014 12:00 AM COMPREHEN METABOLIC PANEL 05/27/2014 12:00 AM LIPID PANEL 05/27/2014 12:00 AM PROTHROMBIN TIME 05/27/2014 12:00 AM ASSAY THYROID STIM HORMONE 05/27/2014 12:00 AM COMPLETE CBC W/AUTO DIFF WBC 08/18/2014 12:00 AM COMPREHEN METABOLIC PANEL 08/18/2014 12:00 AM LIPID PANEL 08/18/2014 12:00 AM GLYCOSYLATED HEMOGLOBIN TEST 08/18/2014 12:00 AM ASSAY THYROID STIM HORMONE 08/18/2014 12:00 AM ASSAY OF PSA TOTAL 08/18/2014 12:00 AM ASSAY OF PSA FREE 08/18/2014 12:00 AM Medications Active Name Start Date Estimated Completion Date SIG Comments Aspirin Oral Tablet 81 mg take 1 tablet (81 mg) by oral route once daily Lumigan Ophthalmic Drops 0.03 % instill 1 drop into affected eye(s) by ophthalmic route once daily in the evening atorvastatin oral tablet 40 mg 04/07/2014 11/03/2014 take 1 tablet (40 mg) by oral route once daily at bedtime for 30 days Coumadin oral tablet 2 mg 04/07/2014 04/02/2015 take 1 1/2 tablet daily Pacerone oral tablet 100 mg 04/07/2014 12/03/2014 take 1 tablet (100 mg) by oral route once daily for 30 days atenolol oral tablet 100 mg 04/07/2014 04/02/2015 take 1 tablet by oral route 2 times a day for 30 days finasteride oral tablet 5 mg 04/07/2014 07/01/2015 take 1 tablet (5 mg) by oral route once daily for 90 days atorvastatin oral tablet 80 mg 07/29/2014 TAKE ONE TABLET BY MOUTH ONCE DAILY AT BEDTIME levothyroxine oral tablet 100 mcg 08/08/2014 TAKE ONE TABLET BY MOUTH ONCE DAILY Name Start Date Expiration Date SIG Comments Amoxicillin Oral Capsule 500 mg 10/30/2009 11/09/2009 take 2 capsules by oral route 3 times a day for 5 days Medrol (Onel) Oral Tablets, Dose Pack 4 mg 11/02/2009 11/12/2009 take as directed for 5 days Bactrim DS Oral Tablet 160-800 mg 11/02/2009 11/12/2009 take 1 tablet by oral route every 12 hours for 10 days Synthroid Oral Tablet 50 mcg 06/28/2010 06/28/2010 take 1 tablet (50 mcg) by oral route once daily SYNTHROID 50MCG TAB 50 each 06/29/2010 07/29/2010 1QD - TAKE ONE TABLET BY MOUTH EVERY DAY atorvastatin Oral tablet 80 mg 02/12/2013 03/14/2013 TAKE ONE TABLET BY MOUTH AT BEDTIME Aleve oral tablet 220 mg 07/25/2013 11/22/2013 take 1 tablet (220 mg) by oral route every 12 hours as needed for 30 days Colace oral capsule 100 mg 07/25/2013 02/20/2014 take 1 capsule (100 mg) by oral route once daily for 30 days Lasix oral tablet 20 mg 07/25/2013 02/20/2014 take 1 tablet daily levothyroxine oral tablet 100 mcg 07/25/2013 02/20/2014 take 1 tablet (100 mcg) by oral route once daily for 30 days Miralax oral powder 17 gram/dose 07/25/2013 02/20/2014 take 17 gram mixed with 8 oz. water, juice, soda, coffee or tea by oral route once daily for 30 days Pilocarpine HCl Ophthalmic Drops 2 % 07/25/2013 02/20/2014 instill 1 drop into both eyes by ophthalmic route every 12 hours for 30 days bimatoprost 0.01% 07/26/2013 05/22/2014 1 drop each eye at bedtime timolol maleate ophthalmic drops 0.5 % 07/26/2013 02/21/2014 instill 1 drop in affected eye , each eye for 30 days bid Discontinued Name Start Date Discontinued Date SIG Comments Carvedilol Oral Tablet 25 mg 06/12/2012 take 1 tablet (25 mg) by oral route 2 times per day with food promethazine-codeine Oral Syrup 6.25-10 mg/5 mL 06/12/2012 take 5 milliliters by oral route every 6 hours as needed, not to exceed 30 mL in 24 hours pravastatin Oral Tablet 80 mg 06/12/2012 take 1 tablet (80 mg) by oral route once daily Nasonex Nasal [place], Non-Aerosol 50 mcg/actuation 07/07/2011 06/12/2012 spray 2 sprays in each nostril by intranasal route once daily [place] Oral tablet 5-325 mg 05/21/2013 take 1 tablet by oral route every 6 hours as needed for pain for 30 days Lasix Oral tablet 40 mg 12/11/2012 05/21/2013 take 1 tablet by oral route daily as needed Celebrex oral capsule 200 mg 05/21/2013 04/07/2014 take 1 capsule (200 mg) by oral route once daily Lipitor oral tablet 20 mg 07/08/2013 04/07/2014 take 1 tablet (20 mg) by oral route once daily for 90 days warfarin oral tablet 2 mg 04/07/2014 take 1 tablet (2 mg) by oral route once daily Problem List Description Status Onset Heart Disease Active Hyperlipidemia, 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/2012 Vital Signs Date Time BP-Sys(mm[Hg] BP-Yokasta(mm[Hg]) HR(bpm) RR(rpm) Temp WT HT HC BMI BSA BMI Percentile O2 Sat(%) 05/27/2014 1:34:00 PM 100 mmHg 62 mmHg 88 bpm 18 rpm 98.6 F 212 lbs 74 in 27.22 kg/m2 2.24 m2 04/22/2014 3:26:00 PM 100 mmHg 64 mmHg 93 bpm 18 rpm 97 F 209 lbs 74 in 26.8337 kg/m 2.2248 m 93 % 04/07/2014 2:57:00 PM 110 mmHg 74 mmHg 84 bpm 18 rpm 98.2 F 209 lbs 74 in 26.83 kg/m2 2.22 m2 03/31/2014 1:18:00 PM 132 mmHg 80 mmHg 92 bpm 18 rpm 97.4 F 208.5 lbs 74 in 26.7695 kg/m 2.2221 m 97 % 03/24/2014 11:12:00 AM 123 mmHg 97 mmHg 93 bpm 20 rpm 98.2 F 206.2 lbs 74 in 26.47 kg/m2 2.21 m2 96 % 02/11/2014 8:58:00 AM 132 mmHg 74 mmHg 54 bpm 18 rpm 96.1 F 204.125 lbs 74 in 26.2078 kg/m 2.1987 m 98 % 08/27/2013 3:54:00 PM 152 mmHg 90 mmHg 64 bpm 20 rpm 98 F 208 lbs 08/12/2013 10:57:00 AM 129 mmHg 87 mmHg 66 bpm 20 rpm 98 F 210 lbs 74 in 26.9621 kg/m 2.2301 m 96 % 07/08/2013 11:08:00 AM 110 mmHg 82 mmHg 61 bpm 18 rpm 97.5 F 208 lbs 74 in 26.71 kg/m2 2.22 m2 95 % 05/21/2013 1:50:00 PM 112 mmHg 60 mmHg 79 bpm 20 rpm 98.6 F 212 lbs 74 in 27.2189 kg/m 2.2407 m 12/11/2012 1:57:00 PM 120 mmHg 64 mmHg 66 bpm 14 rpm 97.6 F 218 lbs 74 in 27.99 kg/m2 2.27 m2 95 % 09/04/2012 8:22:00 AM 128 mmHg 82 mmHg 78 bpm 18 rpm 97.6 F 221 lbs 74 in 28.3744 kg/m 2.2878 m 06/12/2012 1:29:00 PM 118 mmHg 72 mmHg 72 bpm 18 rpm 98.1 F 218 lbs 74 in 27.99 kg/m2 2.27 m2 12/26/2011 1:40:00 PM 110 mmHg 70 mmHg 64 bpm 18 rpm 97.8 F 211 lbs 74 in 27.0905 kg/m 2.2354 m 11/24/2011 3:25:00 PM 144 mmHg 80 mmHg 64 bpm 18 rpm 97.9 F 200 lbs 74 in 25.68 kg/m2 2.18 m2 07/07/2011 2:12:00 PM 110 mmHg 72 mmHg 60 bpm 18 rpm 97.9 F 212 lbs 74 in 27.2189 kg/m 2.2407 m 01/24/2011 3:17:00 PM 100 mmHg 64 mmHg 58 bpm 20 rpm 98.8 F 224 lbs 74 in 28.76 kg/m2 2.30 m2 03/18/2010 3:02:00 PM 140 mmHg 80 mmHg [...] of Procedures Date Ordered Description Order Status 03/09/2011 12:00 AM CAPILLARY BLOOD DRAW Reviewed 03/09/2011 12:00 AM PROTHROMBIN TIME Returned 06/23/2011 12:00 AM CHEST X-RAY 2VW FRONTAL&LATL Returned 03/05/2009 12:00 AM PROTHROMBIN TIME Reviewed 02/29/2012 12:00 AM PNEUMOCOCCAL VACC 23 BAILEY IM Reviewed 05/11/2012 12:00 AM COMPLETE CBC W/AUTO [...] 12:00 AM ASSAY THYROID STIM HORMONE Reviewed 03/15/2013 12:00 AM PROTHROMBIN TIME Reviewed [...] AM PROTHROMBIN TIME Reviewed 02/09/2010 12:00 AM FLU VACCINE 3 [...] Reviewed 01/20/2014 12:00 AM LIPID PANEL Reviewed 03/24/2014 12:00 AM ELECTROCARDIOGRAM COMPLETE Reviewed 04/07/2014 12:00 AM PNEUMOCOCCAL VACC 7 BAILEY IM Reviewed Results Summary Data and Description Results [...] 24.0 mmol/LBUN 18.0 mg/ dLCREATININE 1.10 mg/dLCALCIUM .10 mg/dLeGFR 60 11/11/2011 10:01 AM GLUCOSE 124.0 [...] 154.0 mg/dLHDL 39.0 mg/dLLDL (CALC) 83.0 mg/dL History Of Immunizations Name Date Admin Mfg Name Mfg Code Trade Name Lot# Route Inj Vis Given Vis Pub CVX Influenza 01/24/2011 sanofi pasteur PMC Fluzone [id number] Intramuscular Left Arm 01/24/2011 10/27/2010 111 Influenza 02/29/2012 sanofi pasteur PMC Fluzone [id number] Intramuscular Left Deltoid 02/29/2012 10/03/2011 141 Pneumococcal 02/29/2012 [employer]ck [employer] Inc. MSD Pneumovax 23 [id number] Intramuscular Right Deltoid 02/29/2012 01/06/2009 999 Td 08/13/2012 sanofi pasteur PMC TENIVAC [id number] Intramuscular Left Deltoid 08/14/2012 04/26/2011 113 Influenza 02/22/2013 sanofi pasteur PMC Fluzone [id number] Intramuscular Left Deltoid 02/22/2013 10/26/2012 141 Influenza 02/11/2014 sanofi pasteur PMC Fluzone [id number] Intramuscular Left Deltoid 02/11/2014 11/19/2013 141 PCV 04/07/2014 Cdiek-Orshll-LmdxforToby WAL Prevnar 13 [id number] Intramuscular Left Deltoid 04/07/2014 05/30/2012 133 History of Past Illness Name Date of Onset Comments Heart Valve Replacement Mar 05 2009 10:37AM Atrial Fibrillation Mar 30 2009 8:50AM Heart Disease Hyperlipidemia, Mixed Hypertension Apr 07 2009 8:55AM Hyperlipidemia, unspecified Apr 07 2009 8:55AM Heart Valve Replacement Apr 07 2009 8:55AM Chronic Obstructive Pulmonary Disease hypothyroidism Heart Valve Replacement 06/12/2012 Cellulitis/Abscess, unspecified Oct [...] 5:46PM Hypothyroidism, Acquired Aug 18 2014 5:46PM Payers Insurance Name Company Name Plan Name Plan Number Policy Number Policy Group Number Start Date Medicare Part A Medicare Part A [id number] N[id number] March Medicare Part B Medicare Of [place] [id number] Wednesday, 1995 History of Encounters Visit Date Visit Type Provider 05/27/2014 Office visit Ant Huber MD 04/22/2014 Office visit Ant Huber MD 04/07/2014 Office visit Ant Huber MD 03/31/2014 Office visit Ant Huber MD 03/24/2014 Office visit Malina Hendricks CLINICAL PROJECT ASSISTANT 03/24/2014 [facility] Winston Jansen MD 02/11/2014 Office visit Ant Huber MD 08/27/2013 Office visit Ant Huber MD 08/12/2013 Office visit Malina Hendricks CLINICAL PROJECT ASSISTANT 07/08/2013 Office visit Ant Huber MD 06/05/2013 [facility] Gemma Chinchilla MD 05/21/2013 Office visit Ant Huber MD 05/15/2013 [facility] Winston Jansen MD 05/11/2013 [facility] Winston Jansen MD 02/22/2013 Nurse visit Ant Huber MD 12/11/2012 Office visit Ant Huber MD 09/04/2012 Office visit Ant Huber MD 08/13/2012 Nurse visit Ant Huber MD 06/12/2012 Office visit Ant Huber MD 02/29/2012 Nurse visit Ant Huber MD 12/26/2011 Office visit Ant Huber MD 11/24/2011 Office visit Ant Huber MD 11/07/2011 [facility] Pennie Casas MD 11/06/2011 [facility] Pennie Casas MD 11/05/2011 [facility] 11/04/2011 [facility] 11/03/2011 [facility] 11/01/2011 [facility] 08/25/2011 [facility] John Jansen MD 07/07/2011 Office visit Ant Huber [...] Laboratory Ant Huber MD 12/10/2008 Laboratory Ant Huebr MD
--- OUTSIDE RECORDS SUMMARY | 2017-02-25 05:22 | XMS REPORT ---
Author Author Ant Huber [facility] Address [address] [place], [place] [id number] Care Team Providers Care Tuber Operator Name Role Phone Ant Huber PCP Unavailable Ant Huber PreferredProvider Unavailable Allergies and Adverse Reactions Name Reaction Notes NO KNOWN DRUG ALLERGIES Plan of Treatment Planned Activity Comments Planned Date Planned Time Plan/Goal Pulmonary function testing 07/07/2011 12:00 AM CBC with Auto 01/20/2014 12:00 [...] each nostril by intranasal route once daily Jay 5-325 mg oral tablet 05/21/2013 take 1 [...] HC BMI BSA BMI Percentile O2 Sat(%) 04/14/2016 3:09:00 PM 118 mmHg 70 mmHg 92 bpm 17 rpm 97.9 F 183 lbs 74 in 23.50 kg/m2 2.08 m2 96 % 02/09/2016 2:52:00 PM 116 mmHg 74 mmHg 67 bpm 18 rpm 97 F 189 lbs 74 in 24.2659 kg/m 2.1157 m 95 % 05/26/2015 2:11:00 PM 130 mmHg 64 mmHg 82 bpm 18 rpm 97.4 F 200 lbs 74 in 25.68 kg/m2 2.18 m2 09/11/2014 1:34:00 PM 108 mmHg 70 mmHg 82 bpm 18 rpm 98.3 F 208 lbs 74 in 26.7053 kg/m 2.2195 m 05/27/2014 1:34:00 PM 100 mmHg 62 mmHg [...] 12:00 AM COMPLETE CBC W/AUTO DIFF WBC Returned 02/01/2016 12:00 AM COMPREHEN METABOLIC PANEL Returned 02/01/2016 12:00 AM LIPID PANEL Returned 02/01/2016 12:00 AM GLYCOSYLATED HEMOGLOBIN TEST Returned 02/02/2016 12:00 AM ASSAY THYROID STIM HORMONE Reviewed 06/23/2011 12:00 AM CHEST X-RAY 2VW FRONTAL&LATL Reviewed 02/09/2016 12:00 AM X-RAY EXAM THORAC SPINE 2VWS Returned 03/05/2009 12:00 AM PROTHROMBIN TIME Reviewed 02/29/2012 12:00 AM PNEUMOCOCCAL VACC 23 BAILEY IM Reviewed 02/29/2012 12:00 AM Flu Injection 3 Years And Above [facility]# [address]-37 RHC Reviewed 05/11/2012 12:00 AM COMPLETE CBC [...] AM Flu Injection 3 Years And Above [facility]# [address]-78 RHC Reviewed 03/15/2013 12:00 AM PROTHROMBIN TIME Reviewed [...] secsINR POCT 5.8 CALLED TO/BY DAYA AT [facility] 1215 4-9 BY VERONICA 07/19/2011 3:48 PM [...] POCT 83.30 secsINR POCT 7.0 CALLED TO/BY TALIB BOOTH/VERONICA 1400 07/16/2015 2:10 PM PROTIME POCT 48.30 [...] PM PROTIME POCT 24.90 secsINR POCT 2.1 03/16/2016 3:00 PM GLUCOSE 95.0 mg/dLSODIUM 142.0 mmol/LPOTASSIUM 4.70 mmol/ LCHLORIDE 105.0 mmol/LCO2 27.0 mmol/LBUN 21.0 mg/dLCREATININE 1.0 mg/dLSGOT/AST 65.0 IU/LSGPT/ALT 44.0 IU/LALK PHOS 136.0 IU/LTOTAL PROTEIN 6.80 g/dLALBUMIN 4.0 g/dLTOTAL BILI 1.60 mg/dLCALCIUM 9.50 mg/dLAGE 85 GFR NonAA 71 GFR AA 86 eGFR >60 mL/min/1.73meGFR AA* >60 PROTIME 24.0 secsINR 2.2 SPECIMEN SOURCE: LEFT FOREARM SPECIMEN SOURCE: LEFT FOREARM History Of Immunizations Name Date Admin Mfg Name Mfg Code Trade Name Lot# Route Inj Vis Given Vis Pub CVX Influenza 01/24/2011 sanofi pasteur PMC Fluzone [id number] Intramuscular Left Arm 01/24/2011 10/27/2010 111 Influenza 02/29/2012 sanofi pasteur PMC Fluzone [id number] Intramuscular Left Deltoid 02/29/2012 10/03/2011 141 X 02/29/2012 [employer]ck & Co., Inc. MSD Pneumovax 23 [id number] Intramuscular Right Deltoid 02/29/2012 01/06/2009 999 Td 08/13/2012 sanofi pasteur PMC TENIVAC [id number] Intramuscular Left Deltoid 08/14/2012 04/26/2011 113 Influenza 02/22/2013 sanofi pasteur PMC Fluzone [id number] Intramuscular Left Deltoid 02/22/2013 10/26/2012 141 Influenza 02/11/2014 sanofi pasteur PMC Fluzone [id number] Intramuscular Left Deltoid 02/11/2014 11/19/2013 141 Pneumococcal 04/07/2014 Oxxae-Gmicid-XktbmfkPraxis WAL Prevnar 13 [id number] Intramuscular Left Deltoid 04/07/2014 05/30/2012 133 Influenza 11/07/2014 Not Entered NE Fluvirin Intramuscular Left Arm 11/0704/03/2016 141 Influenza 12/15/2015 Not Entered NE Not Entered [id number] Intramuscular Left Arm 12/15/2015 11/07/2014 141 History of Past Illness Name Date of [...] 2016 3:12PM Hematoma Apr 14 2016 3:12PM Payers Insurance Name Company Name Plan Name Plan Number Policy Number Policy Group Number Start Date Medicare Part A Medicare RHC [id number] N/A [facility] [id number] March Medicare Part A Medicare Part A [id number] N/A Medicare Part A Medicare - Lab/Xray [id number] N/A Medicare Part B Medicare Of [place] [id number] Wednesday, August 02, 1995 History of Encounters Visit Date Visit Type Provider 04/14/2016 Office visit Ant Huber MD 02/09/2016 Office visit Ant Huber MD 01/18/2016 [facility] Winston Jansen MD 12/30/2015 [facility] Winston Jansen MD [...] Jansen MD 03/24/2014 Office visit Malina Hendricks BELL TIER 02/11/2014 Office visit Ant Huber MD 08/27/2013 Office visit Ant Huber MD 08/12/2013 Office visit Malina Hendricks BELL TIER 07/08/2013 Office visit Ant Huber MD 06/05/2013 [facility] Gemma Chinchilla MD 05/21/2013 Office visit Ant Huber MD 05/15/2013 [facility] Winston Jansen MD 05/11/2013 [facility] Winston Jansen MD 02/22/2013 Nurse visit Ant Huber MD 12/11/2012 Office visit Ant Huber MD 09/04/2012 Office visit Ant Huber MD 08/13/2012 Nurse visit Ant Huber MD 06/12/2012 Office visit Ant Huber MD 02/29/2012 Nurse visit Ant Huber MD 12/26/2011 Office visit Ant Huber MD 11/24/2011 Office visit Ant Huber MD 11/07/2011 [facility] Pennie Casas MD 11/06/2011 [facility] Pennie Casas MD 11/05/2011 [facility] 11/04/2011 [facility] 11/03/2011 [facility] 11/01/2011 [facility] 08/25/2011 [facility] Winston Jansen MD 07/07/2011 Office visit Ant [...]
--- OUTSIDE RECORDS SUMMARY | 2017-02-25 05:24 | XMS REPORT ---
Author Author Ant Huber [facility] Address [address] [place], [place] [id number] Care Team Providers Care Utility Plant Operative Name Role Phone nAt Huber PCP Unavailable Allergies and Adverse Reactions Name Reaction Notes NO KNOWN DRUG ALLERGIES Plan of Treatment Planned Activity Comments Planned Date Planned Time Plan/Goal BREATHING CAPACITY TEST 07/07/2011 12:00 AM COMPLETE [...] TAKE ONE TABLET BY MOUTH ONCE DAILY naproxen 500 mg oral tablet 05/26/2015 09/23/2015 take 1 tablet (500 mg) by oral route 2 times per day with food for 30 days Miralax 17 gram/dose oral powder 05/26/2015 take 17 gram mixed with 8 oz. water, juice, soda, coffee or tea by oral route once daily Name Start Date Expiration Date SIG Comments [...] each nostril by intranasal route once daily [place] 5-325 mg oral tablet 05/21/2013 take 1 [...] HC BMI BSA BMI Percentile O2 Sat(%) 05/26/2015 2:11:00 PM 130 mmHg 64 mmHg [...] AM Flu Injection 3 Years And Above [facility]# [address]-10 RH Reviewed 05/11/2012 12:00 AM COMPLETE CBC W/AUTO [...] AM Flu Injection 3 Years And Above [facility]# [address]-12 [facility] Reviewed 03/15/2013 12:00 AM PROTHROMBIN TIME Reviewed [...] %MCV 97.0 fLMCH 31.60 pgMCHC 32.60 g/dLRDW CV 14.20 %MPV 9.0 fLPLT 277 PROTIME 38.10 secsINR 3.5 GLUCOSE 114.0 mg/dLSODIUM 142.0 mmol/LPOTASSIUM 4.30 mmol/LCHLORIDE 105.0 mmol/LCO2 28.0 mmol/LBUN 27.0 mg/dLCREATININE 1.20 mg/dLSGOT/AST 67.0 IU/LSGPT/ ALT 62.0 IU/LALK PHOS 158.0 IU/LTOTAL PROTEIN 7.10 g/dLALBUMIN 4.10 g/dLTOTAL BILI 1.10 mg/dLCALCIUM 9.70 mg/dLeGFR 58 TRIGLYCERIDES 97.0 mg/dLCHOLESTEROL 123.0 mg/dLHDL 39.0 mg/dLLDL (CALC) 65.0 mg/dLMAGNESIUM 2.50 mg/dLTSH 1.960 uIU/ mL History Of Immunizations Name Date Admin Mfg Name Mfg Code Trade Name Lot# Route Inj Vis Given Vis Pub CVX Influenza 01/24/2011 sanofi pasteur PMC Fluzone [id number] Intramuscular Left Arm 01/24/2011 10/27/2010 111 Influenza 02/29/2012 sanofi pasteur PMC Fluzone [id number] Intramuscular Left Deltoid 02/29/2012 10/03/2011 141 Pneumococcal 02/29/2012 [employer]ck [employer] MSD Pneumovax 23 [id number] Intramuscular Right Deltoid 02/29/2012 01/06/2009 999 Td 08/13/2012 sanofi pasteur [facility] TENIVAC [id number] Intramuscular Left Deltoid 08/14/2012 04/26/2011 113 Influenza 02/22/2013 sanofi [facility] PMC Fluzone [id number] Intramuscular Left Deltoid 02/22/2013 10/26/2012 141 Influenza 02/11/2014 sanofi pasteur PMC Fluzone [id number] Intramuscular Left Deltoid 02/11/2014 11/19/2013 141 PCV 04/07/2014 Tgfqw-Gwyfcb-RqzcbxtPraximilvia WAL Prevnar 13 [id number] Intramuscular Left Deltoid 04/07/2014 05/30/2012 133 History [...] 2015 2:17PM Constipation May 26 2015 2:17PM Payers Insurance Name Company Name Plan Name Plan Number Policy Number Policy Group Number Start Date Medicare Part A Medicare Part A [id number] N/A [id number] March Medicare Part B Medicare Of [place] [id number] Wednesday, 1995 History of Encounters Visit Date Visit Type Provider 05/26/2015 Office visit Ant Huber MD 11/01/2014 [facility] Winston Jansen MD 09/11/2014 Office visit Ant Huber MD 05/27/2014 Office visit 05/27/2014 Office visit Ant Huber MD 05/26/2014 [facility] Winston Jansen MD 04/22/2014 Office visit Ant Huber MD 04/07/2014 Office visit Ant Huber MD 03/31/2014 Office visit Ant Huber MD 03/24/2014 Lexy Jansen MD 03/24/2014 Office visit Malina Hendricks APRN 02/11/2014 Office visit Ant Huber MD 08/27/2013 Office visit Ant Huber MD 08/12/2013 Office visit Malina Hendricks DEAL ARCHITECT 07/08/2013 Office visit Ant Huber MD 06/05/2013 [facility] Gemma Chinchilla MD 05/21/2013 Office visit Ant Huber MD 05/15/2013 Hospital Winston Jansen MD 05/11/2013 [facility] Winston Jansen MD 02/22/2013 Nurse visit Ant Huber MD 12/11/2012 Office visit Ant Huber MD 09/04/2012 Office visit Ant Huber MD 08/13/2012 Nurse visit Ant Huber MD 06/12/2012 Office visit Ant Huber MD 02/29/2012 Nurse visit Ant Huber MD 12/26/2011 Office visit Ant Huber MD 11/24/2011 Office visit Ant Huber MD 11/07/2011 [facility] Pennie Casas MD 11/06/2011 [facility] Pennie Casas MD 11/05/[address] [facility] 11/04/[address] [facility] 11/03/[address] [facility] 11/01/[address] [facility] 08/25/2011 [facility] Winston Jansen MD 07/07/2011 Office visit [...]
--- OUTSIDE RECORDS SUMMARY | 2017-02-25 05:25 | XMS REPORT ---
Author Author Winston Jansen Organization [facility] Address [address] [place], [place] [id number] Care Team Providers Care Electrical Appliance Preparer Name Role Phone Winston Jansen PCP Allergies and Adverse Reactions Name Reaction Notes NO KNOWN DRUG ALLERGIES Plan of Treatment Planned Activity Comments Planned Date Planned Time Plan/Goal COMPLETE CBC W/AUTO DIFF WBC 02/01/2016 12:00 AM COMPREHEN METABOLIC PANEL 02/01/2016 12:00 AM LIPID PANEL 02/01/2016 12:00 AM GLYCOSYLATED HEMOGLOBIN TEST 02/01/2016 12:00 AM ASSAY THYROID STIM HORMONE 02/02/2016 12:00 AM BREATHING CAPACITY TEST 07/07/2011 12:00 [...] each nostril by intranasal route once daily [place] 5-325 mg oral tablet 05/21/2013 take 1 [...] AM Flu Injection 3 Years And Above [facility]# [id number] [facility] Reviewed 05/11/2012 12:00 AM COMPLETE CBC W/AUTO [...] AM Flu Injection 3 Years And Above [facility]# [id number] [facility] Reviewed 03/15/2013 12:00 AM PROTHROMBIN [...] 3.81 HGB 11.60 g/dLHCT 35.40 %MCV 93.0 [facility] 30[facility]40 [facility] 32.80 g/dLRDW CV 14.30 %MPV 9.0 fLPLT [...] %MCV 96.0 fLMCH 31.60 pgMCHC 33.0 g/dLRDW CV 14.10 %MPV 9.0 fLPLT 195 %NEUT 68.60 %%LYMP 18.70 %%MONO 9.80 %%EOS 2.50 %%BASO 0.40 %#NEUT 3.79 #LYMP 1.03 #MONO 0.54 #EOS 0.14 #BASO 0.02 TRIGLYCERIDES 94.0 mg/ dLCHOLESTEROL 134.0 mg/dLHDL 39.0 mg/dLLDL (CALC) 76.0 mg/dL 01/06/2015 10:24 [...] 65.0 mg/dLMAGNESIUM 2.50 mg/dLTSH 1.960 uIU/ mL 06/02/2015 10:46 AM PROTIME POCT 69.50 secsINR POCT 5.8 06/23/2015 10:15 AM PROTIME POCT 29.10 secsINR POCT 2.4 07/14/2015 1:58 PM PROTIME POCT 83.30 secsINR POCT 7.0 07/16/2015 2:10 PM PROTIME POCT 48.30 secsINR [...] 24.0 mmol/LBUN 21.0 mg/dLCREATININE 1.10 mg/dLCALCIUM 9.50 mg/dLeGFR >60 mL/min/1.73mMAGNESIUM 2.20 mg/dL 01/12/2016 1:30 PM PROTIME 18.10 secsINR 1.7 01/18/2016 1:45 PM PROTIME 30.10 secsINR 2.7 GLUCOSE 103.0 mg/dLSODIUM 142.0 mmol/LPOTASSIUM 4.70 mmol/LCHLORIDE 107.0 mmol/LCO2 24.0 mmol/LBUN 19.0 mg/ dLCREATININE 1.10 mg/dLCALCIUM 9.70 mg/dLeGFR >60 mL/min/1.73mMAGNESIUM 2.40 mg/dL History Of Immunizations Name Date Admin Mfg Name Mfg Code Trade Name Lot# Route Inj Vis Given Vis Pub CVX Influenza 01/24/2011 sanofi pasteur PMC Fluzone [id number] Intramuscular Left Arm 01/24/2011 10/27/2010 111 Influenza 02/29/2012 sanofi pasteur PMC Fluzone [id number] Intramuscular Left Deltoid 02/29/2012 10/03/2011 141 X 02/29/2012 Merck & [employer]., Inc. MSD Pneumovax 23 [id number] Intramuscular Right Deltoid 02/29/2012 01/06/2009 999 Td 08/13/2012 sanofi pasteur PMC TENIVAC [id number] Intramuscular Left Deltoid 08/14/2012 04/26/2011 113 Influenza 02/22/2013 sanofi pasteur PMC Fluzone [id number] Intramuscular Left Deltoid 02/22/2013 10/26/2012 141 Influenza 02/11/2014 sanofi pasteur PMC Fluzone [id number] Intramuscular Left Deltoid 02/11/2014 11/19/2013 141 Pneumococcal 04/07/2014 [facility] [id number] Intramuscular Left Deltoid 04/07/2014 05/30/2012 133 Influenza 11/07/2014 Not Entered NE Fluvirin Intramuscular Left Arm 11/0704/03/2015 141 Influenza 12/15/2015 Not Entered NE Not Entered [id number] Intramuscular Left Arm 12/15/2015 11/07/2014 141 History [...] 1:13PM Hypothyroidism, Acquired Feb 02 2016 11:21AM Payers Insurance Name Company Name Plan Name Plan Number Policy Number Policy Group Number Start Date Medicare Part A Medicare Part A [id number] N/A BCBS Bcbs Amrik Edwards [id number] March Medicare Part B Medicare Amrik Edwards [id number] Wednesday, 1995 Medicare Part A Medicare - Lab/Xray [id number] N/A History of Encounters Visit Date Visit Type Provider 12/30/2015 Hospital Winston Jansen MD 05/26/2015 Office visit Ant Huber MD 11/01/2014 Hospital Winston Jansen MD 09/11/2014 Office visit Ant Huber MD 05/27/2014 Office visit 05/27/2014 Office visit Ant Huber MD 05/26/2014 [facility] Winston Jansen MD 04/22/2014 Office visit Ant Huber MD 04/07/2014 Office visit Ant Huber MD 03/31/2014 Office visit Ant Huber MD 03/24/2014 [facility] Winston Jansen MD 03/24/2014 Office visit Malina Hendricks APRN 02/11/2014 Office visit Ant Huber MD 08/27/2013 Office visit Ant Huber MD 08/12/2013 Office visit Malina Hendricks APRN 07/08/2013 Office visit Ant Huber MD 06/05/2013 [facility] Gemma Chinchilla MD 05/21/2013 Office visit Ant Huber MD 05/15/2013 [facility] Winston Jansen MD 05/11/2013 [facility] Winston Jansen MD 02/22/2013 Nurse visit Ant Huber MD 12/11/2012 Office visit Ant Huber MD 09/04/2012 Office visit Ant Huber MD 08/13/2012 Nurse visit Ant Huber MD 06/12/2012 Office visit Ant Huber MD 02/29/2012 Nurse visit Ant Huber MD 12/26/2011 Office visit Ant Huber MD 11/24/2011 Office visit Ant Huber MD 11/07/2011 [facility] Pennie Casas MD 11/06/2011 [facility] Pennie Casas MD 11/05/2011 [facility] DO 11/04/2011 [facility] DO 11/03/2011 [facility] DO 11/01/2011 [facility] 08/25/2011 [facility] Winston Jansen MD 07/07/2011 Office visit [...]
--- OUTSIDE RECORDS SUMMARY | 2017-02-25 05:28 | XMS REPORT ---
Author Author Ant Huber [facility] Address [address] [place], [place] [id number] Care Team Providers Care Financial Sales Associate Name Role Phone Ant Huber PCP Unavailable Ant Huber PreferredProvider Unavailable Allergies and Adverse Reactions Name Reaction Notes NO KNOWN DRUG ALLERGIES Plan of Treatment Planned Activity Comments Planned Date Planned Time Plan/Goal Thoracic Spine 2Views - Main 02/09/2016 12:00 AM Pulmonary function testing 07/07/2011 12:00 AM CBC [...] each nostril by intranasal route once daily [place] 5-325 mg oral tablet 05/21/2013 take 1 [...] HC BMI BSA BMI Percentile O2 Sat(%) 02/09/2016 2:52:00 PM 116 mmHg 74 mmHg [...] Reviewed 03/09/2011 12:00 AM PROTHROMBIN TIME Returned 02/01/2016 12:00 AM COMPLETE CBC W/AUTO DIFF WBC Returned 02/01/2016 12:00 AM COMPREHEN METABOLIC PANEL Returned 02/01/2016 12:00 AM LIPID PANEL Returned 02/01/2016 12:00 AM GLYCOSYLATED HEMOGLOBIN TEST Returned 02/02/2016 12:00 AM ASSAY THYROID STIM HORMONE Returned 06/23/2011 12:00 AM CHEST X-RAY 2VW FRONTAL&LATL Returned 03/05/2009 12:00 AM PROTHROMBIN TIME Reviewed 02/29/2012 12:00 AM PNEUMOCOCCAL VACC 23 BAILEY IM Reviewed 02/29/2012 12:00 AM Flu Injection 3 Years And Above [facility]# [id number] C Reviewed 05/11/2012 12:00 AM COMPLETE CBC W/AUTO [...] AM Flu Injection 3 Years And Above [facility]# [id number] RHC Reviewed 03/15/2013 12:00 AM PROTHROMBIN TIME [...] secsINR POCT 5.8 CALLED TO/BY DAYA AT [facility] 1215 4-9 BY VERONICA 07/19/2011 3:48 PM [...] mg/dLTOT CHOL/HDL 4.4 LDL (CALC) 89.0 mg/dL History Of Immunizations Name Date Admin Mfg Name Mfg Code Trade Name Lot# Route Inj Vis Given Vis Pub CVX Influenza 01/24/2011 sanofi pasteur PMC Fluzone [id number] Intramuscular Left Arm 01/24/2011 10/27/2010 111 Influenza 02/29/2012 sanofi pasteur PMC Fluzone [id number] Intramuscular Left Deltoid 02/29/2012 10/03/2011 141 X 02/29/2012 [employer]ck & Co., Inc. MSD Pneumovax 23 [id number] Intramuscular Right Deltoid 02/29/2012 01/06/2009 999 Td 08/13/2012 sanofi pasteur PMC TENIVAC [id number] Intramuscular Left Deltoid 08/14/2012 04/26/2011 113 Influenza 02/22/2013 sanofi pasteur PMC Fluzone [id number] Intramuscular Left Deltoid 02/22/2013 10/26/2012 141 Influenza 02/11/2014 sanofi pasteur PMC Fluzone [id number] Intramuscular Left Deltoid 02/11/2014 11/19/2013 141 Pneumococcal 04/07/2014 [facility]xvhqmT[facility] [id number] Intramuscular Left Deltoid 04/07/2014 05/30/2012 133 Influenza 11/07/2014 Not Entered NE Fluvirin Intramuscular Left Arm 11/0704/03/2015 141 Influenza 12/15/2015 Not Entered NE Not Entered [id number] Intramuscular Left Arm 12/15/2015 11/07/2014 141 History [...] Thoracic back pain Feb 09 2016 2:59PM Payers Insurance Name Company Name Plan Name Plan Number Policy Number Policy Group Number Start Date Medicare Part A Medicare RHC [id number] N/A BCBS Bcbs [facility] [id number] March Medicare Part A Medicare Part A [id number] N/A Medicare Part A Medicare - Lab/Xray [id number] N/A Medicare Part B Medicare Of [place] [id number] Wednesday, August 02, 1995 History of Encounters Visit Date Visit Type Provider 02/09/2016 Office visit Ant Huber MD 12/30/2015 [facility] Winston Jansen MD 05/26/2015 Office visit Ant Huber MD 11/01/2014 [facility] Winston Jansen MD 09/11/2014 Office visit Ant Huber MD 05/27/2014 Office visit 05/27/2014 Office visit Ant Huber MD 05/26/2014 [facility] Winston Jansen MD 04/22/2014 Office visit Ant Huber MD 04/07/2014 Office visit Ant Huber MD 03/31/2014 Office visit Ant Huber MD 03/24/2014 [facility] Winston Jansen MD 03/24/2014 Office visit Malina Hendricks APRN 02/11/2014 Office visit Ant Huber MD 08/27/2013 Office visit Ant Huber MD 08/12/2013 Office visit Malina Hendricks APRN 07/08/2013 Office visit Ant Huber MD 06/05/2013 [facility] Gemma Chinchilla MD 05/21/2013 Office visit Ant Huber MD 05/15/2013 [facility] Winston Jansen MD 05/11/2013 [facility] Winston Jansen MD 02/22/2013 Nurse visit Ant Huber MD 12/11/2012 Office visit Ant Huber MD 09/04/2012 Office visit Ant Huber MD 08/13/2012 Nurse visit Ant Huber MD 06/12/2012 Office visit Ant Huber MD 02/29/2012 Nurse visit Ant Huber MD 12/26/2011 Office visit Ant Huber MD 11/24/2011 Office visit Ant Huber MD 11/07/2011 Hospital Pennie Casas MD 11/06/2011 [facility] Pennie Casas MD 11/05/2011 [facility] 11/04/2011 [facility] 11/03/2011 [facility] 11/01/2011 [facility] 08/25/2011 [facility] Winston Jansen MD 07/07/2011 Office [...]
--- OUTSIDE RECORDS SUMMARY | 2017-02-25 05:29 | XMS REPORT ---
Author Author Ant Huber [facility] Address [address] [place], [place] [address] Care Team Providers Care Messenger Floorperson Name Role Phone Ant Huber PCP Unavailable [...] by oral route once daily Nasonex Nasal [place], Non-Aerosol 50 mcg/actuation 07/07/2011 06/12/2012 spray 2 sprays in each nostril by intranasal route once daily [place] Oral tablet 5-325 mg 05/21/2013 take 1 [...] daily Problem List Description Status Onset Heart disease [...] CVX Influenza 01/24/2011 sanofi pasteur PMC Fluzone [id number] Intramuscular Left Arm 01/24/2011 10/27/2010 111 Influenza 02/29/2012 sanofi pasteur PMC Fluzone [id number] Intramuscular Left Deltoid 02/29/2012 10/03/2011 141 Pneumococcal 02/29/2012 [employer]ck & Co., Inc. MSD Pneumovax 23 [id number] Intramuscular Right Deltoid 02/29/2012 01/06/2009 999 Td 08/13/2012 sanofi pasteur PMC TENIVAC [id number] Intramuscular Left Deltoid 08/14/2012 04/26/2011 113 Influenza 02/22/2013 sanofi pasteur PMC Fluzone [id number] Intramuscular Left Deltoid 02/22/2013 10/26/2012 141 Influenza 02/11/2014 sanofi pasteur PMC Fluzone [id number] Intramuscular Left Deltoid 02/11/2014 11/19/2013 141 PCV 04/07/2014 Xozjx-Snxaxp-ZraridbToby [facility] Prevnar 13 [id number] Intramuscular Left Deltoid 04/07/2014 05/30/2012 133 History [...] 2014 5:46PM Hyperglycemia Aug 18 2014 5:46PM Payers Insurance Name Company Name Plan Name Plan Number Policy Number Policy Group Number Start Date Medicare Part A Medicare Part A [id number] N/A Bcbs Bcbs [facility] [id number] March Medicare Part B Medicare Of [place] [id number] Wednesday, 1995 History of Encounters Visit Date Visit Type Provider 05/27/2014 Office visit Ant Huber MD 05/26/2014 [facility] Winston Jansen MD 04/22/2014 Office visit Ant Huber MD 04/07/2014 Office visit Ant Huber MD 03/31/2014 Office visit Ant Huber MD 03/24/2014 Office visit Malina Hendricks APRN 03/24/2014 [facility] Winston Jansen MD 02/11/2014 Office visit Ant Huber MD 08/27/2013 Office visit Ant Huber MD 08/12/2013 Office visit Malina Hendricks APRN 07/08/2013 Office visit Ant Huber MD 06/05/2013 [facility] Gemma Chinchilla MD 05/21/2013 Office visit Ant Huber MD 05/15/2013 [facility] Winston Jansen MD 05/11/2013 [facility] Winston Jansen MD 02/22/2013 Nurse visit Ant Huber MD 12/11/2012 Office visit Ant Huber MD 09/04/2012 Office visit Ant Huber MD 08/13/2012 Nurse visit Ant Huber MD 06/12/2012 Office visit Ant Huber MD 02/29/2012 Nurse visit Ant Huber MD 12/26/2011 Office visit Ant Huber MD 11/24/2011 Office visit Ant Huber MD 11/07/2011 [facility] Pennie Casas MD 11/06/2011 [facility] Pennie Casas MD 11/05/2011 [facility] 11/04/2011 [facility] 11/03/2011 [facility] 11/01/2011 [facility] 08/25/2011 [facility] Winston Jansen MD 07/07/2011 Office visit [...]
--- OUTSIDE RECORDS SUMMARY | 2017-02-25 05:31 | XMS REPORT | CCD ---
Author Author MAYA BARONE Unknown Address [address] [place] [address] Care Team Providers Care Final Coat Sprayer Name Role Phone DEL GALVAN Attphys Allergies Allergy Code Allergy Type Reaction Status 13C UREA 465059 Drug allergy Active DOXYCYCLINE 3640 Drug allergy NOT SURE Active Active Medications Medication Code Dose Units Frequency Route Modification Start Date/Time Aspirin 81MG Oral Tablet 170121 81 MILLIGRAMS EVERY 24 HOURS ORAL 06/10/2013 12:00 Prescription Detail 81 MILLIGRAMS ORAL EVERY 24 HOURS Finasteride 5MG Oral Tablet 455248 5 MILLIGRAMS EVERY 24 HOURS ORAL 06/10/2013 12:00 Prescription Detail 5 MILLIGRAMS ORAL EVERY 24 HOURS Pilocarpine HCl 2% Ophthalmic Solution 7566451 1 EACH EVERY 24 HOURS OPTHALMIC 06/10/2013 12:00 Prescription Detail 1 EACH OPTHALMIC EVERY 24 HOURS Timolol Maleate 0.5% Ophthalmic Solution 631801 1 EACH EVERY 12 HOURS OPTHALMIC 06/10/2013 12:00 Prescription Detail 1 EACH OPTHALMIC EVERY 12 HOURS Problems Problem Code Start Date Resolved Date Status Weakness 14170278 06/04/2013 Active Elevated INR 655710756 06/04/2013 Active Hematuria 23645191 06/04/2013 Active Procedures Procedure Code Procedure Type Date ^CULTURE AEROBIC ID [id number] SNOMED CT 03/16/2016 ^SENSITIVITY 989026232 SNOMED CT 03/16/2016 CULTURE WOUND 166671243 SNOMED CT 03/16/2016 COMPREHENSIVE METABOLIC PANEL 466734111 SNOMED CT 2015 Results COMPREHENSIVE METABOLIC PANEL - Collect Date/Time: 03/16/2016 15:00 Test Name Code Test Result Test Units Test Ref Range GLUCOSE 2345-7 95 MG/DL L=70 H=100 SODIUM 2951-2 142 MEQ/L L=135 H=148 POTASSIUM 2823-3 4.7 MEQ/L L=3.5 H=5.3 CHLORIDE 2075-0 105 MEQ/L L=96 H=110 CO2 2028-9 27 MEQ/L L=22 H=29 BUN 3094-0 21 MG/DL L=8 H=22 CREATININE 2160-0 1.0 MG/DL L=0.6 H=1.6 SGOT/AST 1920-8 65 IU/L L=10 H=40 SGPT/ALT 1742-6 44 IU/L L=8 H=54 ALK PHOS 6768-6 136 IU/L L=35 H=115 TOTAL PROTEIN 2885-2 6.8 G/DL L=5.5 H=8.5 ALBUMIN 1751-7 4.0 G/DL L=3.1 H=5.4 TOTAL BILI 1975-2 1.6 MG/DL L=0.0 H=1.5 CALCIUM 76730-6 9.5 MG/DL L=8.2 H=10.6 AGE 528[address]-4 85 yrs GFR NonAA 52132-0 71 [place] 32775-3 86 eGFR 92502-5 >60 N/A eGFR AA* 92909-3 >60 N/A Function Status Unknown or Not Available. History [...] Code Start Date End Date Never smoker [id number] Vital Signs Unknown or Not Available. Function Status Unknown or Not Available. Goals Unknown or Not Available. ASSESSMENTS Unknown or Not Available. Health Concerns Section Unknown or Not Available.
--- OUTSIDE RECORDS SUMMARY | 2017-02-25 05:31 | XMS REPORT ---
Author Author Ant Huber [facility] Address [address] [place] [id number] Care Team Providers Care Layer Out Name Role Phone Ant Huber PCP Unavailable [...] daily at bedtime for 30 days finasteride oral tablet 5 mg 04/07/2014 07/01/2015 take 1 tablet (5 mg) by oral route once daily for 90 days levothyroxine oral tablet 100 mcg 08/08/2014 TAKE ONE TABLET BY MOUTH ONCE DAILY atenolol oral tablet 50 mg 09/11/2014 09/06/2015 take 1 tablet by oral route daily for 30 days Coumadin oral tablet 2.5 mg 09/11/2014 09/06/2015 take 1 tablet (2.5 mg) by oral route once daily for 90 days, on Wed et Sat take 1/2 tablet Pacerone oral tablet 200 mg 09/11/2014 05/09/2015 take 1 tablet (200 mg) by oral route once daily for 30 days Name Start Date Expiration Date SIG Comments [...] by oral route once daily Nasonex Nasal [place], Non-Aerosol 50 mcg/actuation 07/07/2011 06/12/2012 spray 2 sprays in each nostril by intranasal route once daily [place] Oral tablet 5-325 mg 05/21/2013 take 1 [...] mg) by oral route once daily atorvastatin oral tablet 80 mg 07/29/2014 09/11/2014 TAKE ONE TABLET BY MOUTH [...] 12:00 AM ASSAY OF PSA FREE Reviewed Results Summary Data and Description Results [...] TOTAL 0.10 ng/mLTSH 0.730 uIU/mLHGB A1C 5.40 %GLUCOSE 108.0 mg/dLSODIUM 143.0 mmol/LPOTASSIUM 4.40 mmol/LCHLORIDE 107.0 mmol/LCO2 26.0 mmol/LBUN 30.0 mg/dLCREATININE 1.20 mg/dLSGOT/AST 29.0 IU/LSGPT/ALT 33.0 IU /LALK PHOS 83.0 IU/LTOTAL PROTEIN 6.90 g/dLALBUMIN 4.10 g/dLTOTAL BILI 1.30 mg/ dLCALCIUM 9.40 mg/dLeGFR 58 WBC 5.5 RBC 4.65 HGB 14.70 g/dLHCT 44.50 %MCV 96.0 fLMCH 31.60 pgMCHC 33.0 g/dLRDW CV 14.10 %MPV 9.0 fLPLT 195 %NEUT 68.60 %%LYMP 18.70 %%MONO 9.80 %%EOS 2.50 %%BASO 0.40 %#NEUT 3.79 #LYMP 1.03 #MONO 0.54 #EOS 0.14 #BASO 0.02 TRIGLYCERIDES 94.0 mg/dLCHOLESTEROL 134.0 mg/dLHDL 39.0 mg/ dLLDL (CALC) 76.0 mg/dL History Of Immunizations Name Date Admin Mfg Name Mfg Code Trade Name Lot# Route Inj Vis Given Vis Pub CVX Influenza 01/24/2011 sanofi pasteur PMC Fluzone [id number] Intramuscular Left Arm 01/24/2011 10/27/2010 111 Influenza 02/29/2012 sanofi pasteur PMC Fluzone [id number] Intramuscular Left Deltoid 02/29/2012 10/03/2011 141 Pneumococcal 02/29/2012 [employer]ck & [employer] Inc. MSD Pneumovax 23 [id number] Intramuscular Right Deltoid 02/29/2012 01/06/2009 999 Td 08/13/2012 sanofi pasteur PMC TENIVAC [id number] Intramuscular Left Deltoid 08/14/2012 04/26/2011 113 Influenza 02/22/2013 [facility] PMC Fluzone [id number] Intramuscular Left Deltoid 02/22/2013 10/26/2012 141 Influenza 02/11/2014 [facility] PMC Fluzone [id number] Intramuscular Left Deltoid 02/11/2014 11/19/2013 141 PCV 04/07/2014 Mqrgr-Ufwrfe-ItuotvoUpland Hills Healthk[facility] [id number] Intramuscular Left Deltoid 04/07/2014 05/30/2012 133 History [...] 1:42PM Hyperlipidemia, Mixed Sep 11 2014 1:42PM Payers Insurance Name Company Name Plan Name Plan Number Policy Number Policy Group Number Start Date Medicare Part A Medicare Part A [id number] N/A Bcbs Bcbs [place] [id number] March Medicare Part B Medicare [place] [id number] Wednesday, 1995 History of Encounters Visit Date Visit Type Provider 09/11/2014 Office visit Ant Huber MD 05/27/2014 Office visit Ant Huber MD 05/26/2014 Hospital Winston Jansen MD 04/22/2014 Office visit Ant Huber MD 04/07/2014 Office visit Ant Huber MD 03/31/2014 Office visit Ant Huber MD 03/24/2014 Office visit Malina Hendricks CORE MAKER 03/24/2014 Hospital Winston Jansen MD 02/11/2014 Office visit Ant Huber MD 08/27/2013 Office visit Ant Huber MD 08/12/2013 Office visit Malina Hendricks CORE MAKER 07/08/2013 Office visit Ant Huber MD 06/05/2013 [facility] Gemma Chinchilla MD 05/21/2013 Office visit Ant Huber MD 05/15/2013 [facility] Winston Jansen MD 05/11/2013 [facility] Winston Jansen MD 02/22/2013 Nurse visit Ant Huber MD 12/11/2012 Office visit Ant Huber MD 09/04/2012 Office visit Ant Huber MD 08/13/2012 Nurse visit Ant Huber MD 06/12/2012 Office visit Ant Huber MD 02/29/2012 Nurse visit Ant Huber MD 12/26/2011 Office visit Ant Huber MD 11/24/2011 Office visit Ant Huber MD 11/07/2011 [facility] Pennie Casas MD 11/06/2011 [facility] Pennie Casas MD 11/05/2011 [facility] 11/04/2011 [facility] 11/03/2011 [facility] 11/01/2011 [facility] 08/25/2011 [facility] Winston Jnasen MD 07/07/2011 Office visit Ant Huber MD [...]
--- OUTSIDE RECORDS SUMMARY | 2017-02-25 05:33 | XMS REPORT ---
Author Author Winston Jansen [facility] Address [address] [place], [place] [address] Care Team Providers Care Broke Handler Name Role Phone Winston Jansen PCP Allergies and Adverse Reactions Name Reaction Notes NO KNOWN DRUG ALLERGIES Plan of Treatment Planned Activity Comments Planned Date Planned Time Plan/Goal COMPLETE CBC W/AUTO DIFF WBC 02/01/2016 12:00 AM COMPREHEN METABOLIC PANEL 02/01/2016 12:00 AM LIPID PANEL 02/01/2016 12:00 AM GLYCOSYLATED HEMOGLOBIN TEST 02/01/2016 12:00 AM BREATHING CAPACITY TEST 07/07/2011 12:00 [...] each nostril by intranasal route once daily [place] 5-325 mg oral tablet 05/21/2013 take 1 [...] AM Flu Injection 3 Years And Above [facility]# [address]-93 C Reviewed 05/11/2012 12:00 AM COMPLETE CBC [...] AM Flu Injection 3 Years And Above [facility]# [address]-13 C Reviewed 03/15/2013 12:00 AM PROTHROMBIN TIME Reviewed [...] CVX Influenza 01/24/2011 sanofi pasteur PMC Fluzone [id number] Intramuscular Left Arm 01/24/2011 10/27/2010 111 Influenza 02/29/2012 sanofi pasteur PMC Fluzone [id number] Intramuscular Left Deltoid 02/29/2012 10/03/2011 141 X 02/29/2012 [employer] MSD Pneumovax 23 [id number] Intramuscular Right Deltoid 02/29/2012 01/06/2009 999 Td 08/13/2012 sanofi pasteur PMC TENIVAC [id number] Intramuscular Left Deltoid 08/14/2012 04/26/2011 113 Influenza 02/22/2013 sanofi pasteur PMC Fluzone [id number] Intramuscular Left Deltoid 02/22/2013 10/26/2012 141 Influenza 02/11/2014 sanofi pasteur PMC Fluzone [id number] Intramuscular Left Deltoid 02/11/2014 11/19/2013 141 Pneumococcal 04/07/2014 [facility] 13 [id number] Intramuscular Left Deltoid 04/07/2014 05/30/2012 133 Influenza 11/07/2014 Not Entered NE Fluvirin Intramuscular Left Arm 11/0704/03/2015 141 Influenza 12/15/2015 Not Entered NE Not Entered [id number] Intramuscular Left Arm 12/15/2015 11/07/2014 141 History [...] 2016 1:13PM Hyperlipemia Feb 01 2016 1:13PM Payers Insurance Name Company Name Plan Name Plan Number Policy Number Policy Group Number Start Date Medicare Part A Medicare Part A [id number] N/A BCBS Bcbs Amrik Edwards [id number] March Medicare Part B Medicare Amrik Edwards [id number] Wednesday, 1995 Medicare Part A Medicare - Lab/Xray [id number] N/A History of Encounters Visit Date Visit Type Provider 12/30/2015 [facility] Winston Jansen MD 05/26/2015 Office visit Ant Huber MD 11/01/2014 [facility] Winston Jansen MD 09/11/2014 Office visit Ant Huber MD 05/27/2014 Office visit 05/27/2014 Office visit Ant Huber MD 05/26/2014 [facility] Winston Jansen MD 04/22/2014 Office visit Ant Huber MD 04/07/2014 Office visit Ant Huber MD 03/31/2014 Office visit Ant Huber MD 03/24/2014 [facility] Winston Jansen MD 03/24/2014 Office visit Malina Hendricks APRN 02/11/2014 Office visit Ant Huber MD 08/27/2013 Office visit Ant Huber MD 08/12/2013 Office visit Malina Hendricks APRN 07/08/2013 Office visit Ant Huber MD 06/05/2013 [facility] Gemma Chinchilla MD 05/21/2013 Office visit Ant Huber MD 05/15/2013 [facility] Winston Jansen MD 05/11/2013 [facility] Winston Jansen MD 02/22/2013 Nurse visit Ant Huber MD 12/11/2012 Office visit Ant Huber MD 09/04/2012 Office visit Ant Huber MD 08/13/2012 Nurse visit Ant Huber MD 06/12/2012 Office visit Ant Huber MD 02/29/2012 Nurse visit Ant Huber MD 12/26/2011 Office visit Ant Huber MD 11/24/2011 Office visit Ant Huber MD 11/07/2011 [facility] Pennie Casas MD 11/06/2011 [facility] Pennie Casas MD 11/05/2011 [facility] 11/04/2011 [facility] 11/03/2011 [facility] DO 11/01/2011 [facility] DO 08/25/2011 [facility] Winston Jansen MD 07/07/2011 Office visit [...]
[2017-02-25] MEDS: NS IV 1000 ML 1,000 ML IV SCH ×2 (05:35→14:34)
--- OUTSIDE RECORDS SUMMARY | 2017-02-25 05:35 | XMS REPORT ---
Author Author Ant Huber [facility] Address [address] [place], [place] [address] Care Team Providers Care Home Coordinator Name Role Phone Ant Huber PCP Unavailable [...] each nostril by intranasal route once daily [place] 5-325 mg oral tablet 05/21/2013 take 1 [...] Reviewed 03/05/2009 12:00 AM PROTHROMBIN TIME Reviewed 08/03/2016 12:[address] HEAD/BRAIN W/O DYE Reviewed 08/03/2016 12:00 AM X-RAY EXAM OF SHOULDER Reviewed 02/29/2012 12:00 AM PNEUMOCOCCAL VACC 23 BAILEY IM Reviewed 02/29/2012 12:00 AM Flu Injection 3 Years And Above [facility]# [address]-22 C Reviewed 05/11/2012 12:00 AM ROUTINE VENIPUNCTURE [...] AM Flu Injection 3 Years And Above [facility]# [address]-09 C Reviewed 03/15/2013 12:00 AM CAPILLARY BLOOD [...] secsINR POCT 7.0 CALLED TO/BY CALLED MALINA BOOTH/VERONICA 1400 07/16/2015 2:10 PM PROTIME POCT [...] CVX Influenza 01/24/2011 sanofi pasteur PMC Fluzone [id number] Intramuscular Left Arm 01/24/2011 10/27/2010 111 Influenza 02/29/2012 sanofi pasteur PMC Fluzone [id number] Intramuscular Left Deltoid 02/29/2012 10/03/2011 141 X 02/29/2012 [employer] MSD Pneumovax 23 [id number] Intramuscular Right Deltoid 02/29/2012 01/06/2009 999 Td 08/13/2012 sanofi pasteur PMC TENIVAC [id number] Intramuscular Left Deltoid 08/14/2012 04/26/2011 113 Influenza 02/22/2013 sanofi pasteur PMC Fluzone [id number] Intramuscular Left Deltoid 02/22/2013 10/26/2012 141 Influenza 02/11/2014 sanofi pasteur PMC Fluzone [id number] Intramuscular Left Deltoid 02/11/2014 11/19/2013 141 Pneumococcal 04/07/2014 [facility] 13 [id number] Intramuscular Left Deltoid 04/07/2014 05/30/2012 133 Influenza 11/07/2014 Not Entered NE Fluvirin Intramuscular Left Arm 11/0704/03/2016 141 Influenza 12/15/2015 Not Entered NE Not Entered [id number] Intramuscular Left Arm 12/15/2015 11/07/2014 141 Pneumococcal [...] 3:12PM Brain bleed Aug 03 2016 11:10AM Left shoulder pain Aug 03 2016 11:03AM Subarachnoid hematoma, with LOC of 30 min or less, initial encounter Aug 03 2016 11:03AM Payers Insurance Name Company Name Plan Name Plan Number Policy Number Policy Group Number Start Date Medicare RHC Medicare RHC [id number] N[id number] March Medicare Part A Medicare Part A [id number] N/A Medicare Part A Medicare - Lab/Xray [id number] N/A Medicare Part B Medicare Of [place] [id number] Wednesday, August 02, 1995 History of Encounters [...] 07/08/2013 Office visit Ant Huber MD 06/05/2013 [facility] Renée CLANCY 05/21/2013 Office visit Ant Huber MD 05/15/2013 Hospital Winston Jansen MD 05/11/2013 [facility] Winston Jansen MD 02/22/2013 Nurse visit Ant Huber MD 12/11/2012 Office visit Ant Huber MD 09/04/2012 Office visit Ant Huber MD 08/13/2012 Nurse visit Ant Huber MD 06/12/2012 Office visit Ant Huber MD 02/29/2012 Nurse visit Ant Huber MD 12/26/2011 Office visit Ant Huber MD 11/24/2011 Office visit Ant Huber MD 11/07/2011 [facility] Pennie Casas MD 11/06/2011 [facility] Pennie Casas MD 11/05/2011 [facility] 11/04/2011 [facility] 11/03/2011 [facility] 11/01/2011 [facility] 08/25/2011 [facility] Winston Jansen MD 07/07/2011 Office visit [...]
--- OUTSIDE RECORDS SUMMARY | 2017-02-25 05:38 | XMS REPORT | Continuity of Care Document ---
Author Author [facility] Organization [facility] Address Unknown Phone Unavailable Allergies Medications Problems Procedures Results Encounters ACCT No. Visit Date/Time Discharge Status Pt. Type Provider Facility Loc./Unit Complaint [id number] 08/03/2016 11:41:48 08/03/2016 23: 59:59 CLS Outpatient Ant Huber [id number] 04/14/2016 15:45:53 04/14/2016 23: 59:59 CLS Outpatient Ant Huber [id number] 02/12/2016 12:54:48 02/12/2016 23: 59:59 CLS Outpatient Winston Jansen [id number] 02/09/2016 17:39:53 02/09/2016 23: 59:59 CLS Outpatient Ant Huber [id number] 01/27/2016 11:42:09 01/27/2016 23: 59:59 CLS Outpatient Winston Jansen [id number] 05/26/2015 14:48:59 05/26/2015 23: 59:59 CLS Outpatient Ant Huber [id number] 02/01/2015 14:39:16 02/01/2015 23: 59:59 CLS Outpatient Winston Jansen [id number] 11/10/2014 21:53:30 11/10/2014 23: 59:59 CLS Outpatient Ant Huber [id number] 11/10/2014 21:44:54 11/10/2014 23: 59:59 CLS Outpatient Winston Jansen [id number] 04/22/2014 15:30:06 04/22/2014 23: 59:59 CLS Outpatient Ant Huber [id number] 04/07/2014 15:23:59 04/07/2014 23: 59:59 CLS Outpatient Ant Huber [id number] 03/31/2014 14:15:37 03/31/2014 23: 59:59 CLS Outpatient Atn Huber [id number] 03/24/2014 11:26:56 03/24/2014 23: 59:59 CLS Outpatient Malina Hendricks [id number] 02/11/2014 09:50:04 02/11/2014 23: 59:59 CLS Outpatient Mayo Ant [id number] 08/27/2013 16:16:30 08/27/2013 23: 59:59 CLS Outpatient Mayo Ant [id number] 08/12/2013 11:52:14 08/12/2013 23: 59:59 CLS Outpatient Malina Hendricks [id number] 07/08/2013 11:49:47 07/08/2013 23: 59:59 CLS Outpatient Ant Huber [id number] 06/26/2013 12:03:46 06/26/2013 23: 59:59 CLS Outpatient Gemma Chinchilla [id number] 06/03/2013 20:38:27 06/03/2013 23: 59:59 CLS Outpatient Winston Jansen [id number] 05/21/2013 14:36:44 05/21/2013 23: 59:59 CLS Outpatient Ant Huber [id number] 05/21/2013 14:20:33 05/21/2013 23: 59:59 CLS Outpatient Winston Jansen
--- OUTSIDE RECORDS SUMMARY | 2017-02-25 05:38 | XMS REPORT ---
Author Author Ant Huber [facility] Address [address] [place], [place] [address] Care Team Providers Care Bond Manager Name Role Phone Ant Huber PCP Unavailable [...] each nostril by intranasal route once daily [place] 5-325 mg oral tablet 05/21/2013 take 1 [...] Flu Injection 3 Years And Above [facility]# [address]-81 C Reviewed 05/11/2012 12:00 AM ROUTINE VENIPUNCTURE [...] Flu Injection 3 Years And Above [facility]# [address]-60 C Reviewed 03/15/2013 12:00 AM CAPILLARY BLOOD [...] 12:00 AM PSA screening Reviewed Results Summary Date and Description Results 02/19/2009 11:50 AM LDL [...] secsINR POCT 5.8 CALLED TO/BY DAYA AT [facility] 1215 4-9 BY VERONICA 07/19/2011 3:48 [...] AM PROTIME POCT 33.60 secsINR POCT 2.8 08/09/2016 3:53 PM PROTIME 12.70 secsINR 1.2 History Of Immunizations Name Date Admin Mfg Name Mfg Code Trade Name Lot# Route Inj Vis Given Vis Pub CVX Influenza 01/24/2011 sanofi pasteur PMC Fluzone [id number] Intramuscular Left Arm 01/24/2011 10/27/2010 111 Influenza 02/29/2012 sanofi pasteur PMC Fluzone [id number] Intramuscular Left Deltoid 02/29/2012 10/03/2011 141 X 02/29/2012 [employer]ck [employer] MSD Pneumovax 23 [id number] Intramuscular Right Deltoid 02/29/2012 01/06/2009 999 Td 08/13/2012 sanofi pasteur PMC TENIVAC [id number] Intramuscular Left Deltoid 08/14/2012 04/26/2011 113 Influenza 02/22/2013 sanofi pasteur PMC Fluzone [id number] Intramuscular Left Deltoid 02/22/2013 10/26/2012 141 Influenza 02/11/2014 sanofi pasteur PMC Fluzone [id number] Intramuscular Left Deltoid 02/11/2014 11/19/2013 141 Pneumococcal 04/07/2014 [facility] Prevnar 13 [id number] Intramuscular Left Deltoid 04/07/2014 05/30/2012 133 Influenza 11/07/2014 Not Entered NE Fluvirin Intramuscular Left Arm 11/0704/03/2016 141 Influenza 12/15/2015 Not Entered NE Not Entered [id number] Intramuscular Left Arm 12/15/2015 11/07/2014 141 Pneumococcal [...] Number Start Date Medicare RHC Medicare RHC [id number] N/A [facility] [id number] March Medicare Part A Medicare Part A [id number] N/A Medicare Part A Medicare - Lab/Xray [id number] N/A Medicare Part B Medicare Of [place] [id number] Wednesday, August 02, 1995 History of Encounters Visit Date Visit Type Provider 08/03/2016 Office visit Ant Huber MD 04/14/2016 Office visit Ant Huber MD 02/09/2016 Office visit Ant Huber MD 01/18/2016 Hospital Winston Jansen MD 12/30/2015 [facility] Winston Jansen MD 05/26/2015 Office visit Ant Huber MD 11/01/2014 [facility] Winston Jansen MD 09/11/2014 Office visit Ant Huber MD 05/27/2014 Office visit 05/27/2014 Office visit Ant Huber MD 05/26/2014 Hospital Winston Jansen MD 04/22/2014 Office visit Ant Huber MD 04/07/2014 Office visit Ant Huber MD 03/31/2014 Office visit Ant Huber MD 03/24/2014 Hospital Winston Jansen MD 03/24/2014 Office visit Malina Hendricks [employer] 02/11/2014 Office visit Ant Huber MD 08/27/2013 Office visit Ant Huber MD 08/12/2013 Office visit Malina Hendricks [employer] 07/08/2013 Office visit Ant Huber MD 06/05/2013 [facility] Gemma Chinchilla MD 05/21/2013 Office visit [...] MD 11/07/2011 Hospital Pennie Casas MD 11/06/2011 [facility] Pennie Casas MD 11/05/2011 [facility] 11/04/2011 [facility] 11/03/2011 [facility] 11/01/2011 [facility] 08/25/2011 [facility] Winston Jansen MD 07/07/2011 Office visit Ant Huber MD 01/24/2011 Office visit Ant Huber MD 03/18/2010 Office visit Ant Huber MD 02/09/2010 Nurse visit Ant Huber MD 11/16/2009 Office visit Ant Huber MD 11/05/2009 Office visit Ant Huber MD 11/02/2009 Office visit Ant Huber MD 10/30/2009 Office visit Ant Huber MD 10/26/2009 Office visit Ant Huber MD 04/07/2009 Office visit Ant Hbuer MD 03/05/2009 Laboratory Ant Huber MD 03/03/2009 Nurse visit Ant Huber MD 01/27/2009 Laboratory Ant Huber MD 12/10/2008 Laboratory Ant Huber MD
[2017-02-25] MEDS ORDERED: INFLUENZA TRIvalent 2017-2018 0.5 ML/45 MCG SYR IM ONE (08:00)
[2017-02-25 08:27] LABS: BASOPHILS % (AUTO) 0 % (0-10); EOSINOPHILS % (AUTO) 0 % (0-10); LYMPHOCYTES # (AUTO) 0.3 X 10^3 (1.0-4.0); LYMPHOCYTES % (AUTO) 3 % (12-44); MEAN CORPUSCULAR HEMOGLOBIN 32 PG (25-34); MEAN CORPUSCULAR HGB CONC 33 G/DL (32-36); MEAN CORPUSCULAR VOLUME 97 FL (80-99); MEAN PLATELET VOLUME 9.4 FL (7.4-10.4); MONOCYTES # (AUTO) 0.8 X 10^3 (0.0-1.0); MONOCYTES % (AUTO) 8 % (0-12); NEUTROPHILS # (AUTO) 9.3 X 10^3 (1.8-7.8); NEUTROPHILS % (AUTO) 89 % (42-75); PLATELET COUNT 228 10^3/uL (130-400); RED BLOOD COUNT 4.51 10^6/uL (4.35-5.85); RED CELL DISTRIBUTION WIDTH 13.3 % (10.0-14.5); WHITE BLOOD COUNT 10.4 10^3/uL (4.3-11.0)
[2017-02-25 08:43] LABS: ANION GAP 14 MMOL/L (5-14); BLOOD UREA NITROGEN 58 MG/DL (7-18); BUN/CREATININE RATIO 67; CALCIUM 9.4 MG/DL (8.5-10.1); CARBON DIOXIDE 20 MMOL/L (21-32); CHLORIDE 113 MMOL/L (98-107); CREATINE KINASE 1217 U/L (30-200); CREATININE SERUM 0.86 MG/DL (0.60-1.30); GFR ESTIMATED > 60; GLUCOSE 124 MG/DL (70-105); POTASSIUM 3.9 MMOL/L (3.6-5.0); SODIUM 147 MMOL/L (135-145)
[2017-02-25 09:19] LABS: BAND NEUTROPHILS 4 %; LYMPHOCYTES % (MANUAL) 2 %; NEUTROPHILS % (MANUAL) 86 %
--- NOTE | 2017-02-25 10:28 | Occ Therapy Progress Note ---
Therapy Progress Note 1025 Nursing recommended waiting for OT eval - pt getting ready to go for CT scan. JAREN BHAGAT OT Feb 25, 2017 10:28
--- NOTE | 2017-02-25 10:28 | History & Physical-Hospitalist ---
HPI History of Present Illness: HPI/Chief Complaint Pt is an 86yoCM who was transferred from [facility] for admission for rhabdo. He is a very poor historian. He believes he is in [place], [place] in his bedroom. He is unsure if he fell yesterday or if it was two month ago. He is unsure how he arrived at the ER but knows his friend Karen called EMS for he and his . per report from the ER EMS was called because he fell and was unable to get him up. THey were unsure how long he was done has he and his both suffer from dementia. He had images of his hip and elbow done at OSH but did not get a CT Head despite being on Warfarin. His only complaint today is some back pain. When asked about his medical history he states he has no medical problems and has never had surgery (despite a scar on his chest consistent with open heart surgery). Source: patient, old records Exam Limitations: clinical condition Date Seen 02/25/17 Time Seen by Provider: 09:45 Attending Physician Sarina Nunez MD PCP Ant Huber MD Referring Physician Date of Admission Feb 25, 2017 at 05:12 Home Medications & Allergies Home Medications Reviewed patient Home Medication Reconciliation Form Allergies Allergies Coded Allergies diazolidinyl urea (Verified Allergy, Unknown, 02/25/17) Past Tzxqjqc-Fcpnce-Iiavki Hx Patient Social History Marrital Status: Alcohol Use: Denies Use Recreational Drug Use: No Smoking Status: Unknown if Ever Smoked Physical Abuse Screen: No Sexual Abuse: No Recent Foreign Travel: No Contact w/other who traveled: No Recent Hopitalizations: No Recent Infectious Disease Expo: No Seasonal Allergies Seasonal Allergies: No Surgeries Yes Open Heart Surgery Respiratory Yes Cardiovascular Yes (CABG, MITRAL VALVE REPLACEMENT) Genitourinary No Gastrointestinal No Musculoskeletal No Endocrine History of Endocrine Disorders: No HEENT History of HEENT Disorders: Yes HEENT Disorders: Cataract Cancer No Psychosocial History of Psychiatric Problem: No Integumentary History of Skin or Integumenta: No Blood Transfusions History of Blood Disorders: No Family Medical History Other Significan Family Hx: Unable to obtain Review of Systems ROS-Unable to Obtain: reports only back pain, unsure of accuracy fiven dementia Constitutional: no symptoms reported EENTM: no symptoms reported Respiratory: no symptoms reported Cardiovascular: no symptoms reported Gastrointestinal: no symptoms reported Genitourinary: no symptoms reported Musculoskeletal: back pain Skin: no symptoms reported Psychiatric/Neurological: No Symptoms Reported Physical Exam Physical Exam Vital Signs Vital Sign - Last 12Hours 02/25/17 04:40 Temp 98.9 Pulse 124 Resp 24 B/P (MAP) 171/81 Pulse Ox 95 O2 Delivery Room Air Capillary Refill : General Appearance: No Apparent Distress, WD/WN Cardiovascular: No Edema, Systolic Murmur, Tachycardia Gastrointestinal: Normal Bowel Sounds, Non Tender, Soft Extremity: Non Tender, No Calf Tenderness Neurologic/Psychiatric: Alert, Other (oriented to self) Skin: Ecchymosis (over arms) Results Results/Procedures Lab Laboratory Tests 02/25/17 08:13 Assessment/Plan Admission Diagnosis Rhabdomyolysis Diagnosis/Problems Diagnosis/Problems (1) Atrial fibrillation with RVR Status: Acute Assessment & Plan: HR 130-140s Will transfer to ICU and start on Cardizem Cardiology Consulted Echo Ordered INR 4.4- no need for further anticoagulation Telemetry (2) Rhabdomyolysis Status: Acute Assessment & Plan: Suffered fall but unsure of when I was able to reach neighbor Karen who report last time he was seen was 4 days ago CK improving Continue IVF Qualifiers: Qualified Codes: T79.6XXA - Traumatic ischemia of muscle, initial encounter (3) Fall at home Status: Acute Assessment & Plan: Unsure of details, per neighbor police had to break door down to get pt Found on floor in living room Discussed details with Trauma Surgery, consult place Will get CT head INR 4.4 Qualifiers: Qualified Codes: W19.XXXA - Unspecified fall, initial encounter; Y92.099 - Unspecified place in other non-institutional residence as the place of occurrence of the external cause (4) Mitral valve prolapse Assessment & Plan: Neighbor reports "pig valve" INR 4.4- supratherapeutic (5) Essential (primary) hypertension Status: Chronic Assessment & Plan: Elevated, await med list from pharmacy (6) Hypothyroidism Assessment & Plan: Continue Synthroid when dose verified Qualifiers: Qualified Codes: E03.9 - Hypothyroidism, unspecified (7) Hyperlipemia Assessment & Plan: Resume statin when dose verified Qualifiers: Qualified Codes: E78.5 - Hyperlipidemia, unspecified (8) Living accommodation issues Assessment & Plan: Per report from ED physician at [facility] EMS states they are living in filthy environments Will consult social sciences professor for assistance, will need placement at [place] Discussed with his neighbor and spiral tube winder helper Karen who states they live in "horrid " conditions and the home in cockroach infested She states he won't let anyone in to clean or help (9) Supratherapeutic INR Status: Acute Assessment & Plan: Supratherpeutic Karen reports multiple falls in the past few months Will need to have discuss with Cardiology and patient about safety of further anticoagulation (10) Prophylactic measure Assessment & Plan: Warfarin (hold for INR of 4.4) NS at 100 HH diet Clinical Quality Measures DVT/VTE Risk/Contraindication: Risk Factor Score Per Nursin RFS Level Per Nursing on Admit: 4+=Very High SARINA NUNEZ MD Feb 25, 2017 10:28 am
[2017-02-25 10:33] LABS: INR 4.4 (0.8-1.4); PROTHROMBIN TIME PATIENT 41.5 SEC (12.2-14.7)
--- NOTE | 2017-02-25 11:39 | Diagnostic Imaging Report ---
PROCEDURE: CT head without contrast. TECHNIQUE: Multiple contiguous axial images were obtained through the brain without the use of intravenous contrast. INDICATION: Confusion. On warfarin. The ventricles are normal in size, shape and position. There is atrophy. There is no acute parenchymal hemorrhage, edema or mass. There is no extra-axial mass or hemorrhage. IMPRESSION: Atrophy. No acute abnormality is seen. Dictated by: Dictated on workstation # [id number]
[2017-02-25] MEDS: DILTIAZEM DRIP 100 MG in SODIUM CHLORIDE (ADD-VANTAGE) 100 ML IV SCH (12:10)
--- NOTE | 2017-02-25 12:11 | Consultation ---
History of Present Illness History of Present Illness Patient Consulted On(mani/time) 02/25/17 12:05 Time Seen by Provider: 11:43 History of Present Illness Surgery asked to consult regarding possible fall with head trauma and pt on Coumadin. HPI: Obtained from chart, pt unable to answer most questions.....however, he does deny any head pain. Unsure whether confusion is new or old. Pt is an 86yoCM who was transferred from [facility] Er for admission for rhabdo. He is a very poor historian. He believes he is in [place], [place] in his bedroom. He is unsure if he fell yesterday or if it was two month ago. He is unsure how he arrived at the ER but knows his friend Karen called EMS for he and his . per report from the ER EMS was called because he fell and was unable to get him up. THey were unsure how long he was done has he and his both suffer from dementia. He had images of his hip and elbow done at OSH but did not get a CT Head despite being on Warfarin. His only complaint today is some back pain. When asked about his medical history he states he has no medical problems and has never had surgery (despite a scar on his chest consistent with open heart surgery). Source: patient, old records Allergies and Home Medications Allergies Coded Allergies: diazolidinyl urea (Verified Allergy, Unknown, 02/25/17) Past Moiijhh-Ncilot-Ghejcc Hx Patient Social History Alcohol Use: Denies Use Recreational Drug Use: No Smoking Status: Unknown if Ever Smoked Recent Foreign Travel: No Contact w/Someone Who Travel: No Recent Infectious Disease Expo: No Recent Hopitalizations: No Physical Abuse Screen: No Sexual Abuse: No Seasonal Allergies Seasonal Allergies: No Surgeries History of Surgeries: Yes Surgeries: Open Heart Surgery Respiratory History of Respiratory Disorde: Yes Respiratory Disorders: COPD Cardiovascular History of Cardiac Disorders: Yes (CABG, MITRAL VALVE REPLACEMENT) Genitourinary History of Genitourinary Disor: No Gastrointestinal History of Gastrointestinal Di: No Musculoskeletal History of Musculoskeletal Dis: No Endocrine History of Endocrine Disorders: No HEENT History of HEENT Disorders: Yes HEENT Disorders: Cataract Cancer History of Cancer: No Psychosocial History of Psychiatric Problem: No Integumentary History of Skin or Integumenta: No Blood Transfusions History of Blood Disorders: No Family Medical History Significant Family History: Other Conditions/Hx (Unknown, pt cannot answer) Review of Systems-General ROS-Unable to Obtain: pt does not answer all questions Physical Exam-General Problems Physical Exam Vital Signs Vital Sign - Last 12Hours 02/25/17 04:40 Temp 98.9 Pulse 124 Resp 24 B/P (MAP) 171/81 Pulse Ox 95 O2 Delivery Room Air Capillary Refill : General Appearance: no apparent distress, thin Eyes: Bilateral Eye PERRL (pt has arcus senilis), Bilateral Eye EOMI HEENT: pharynx normal (but dry), No scleral icterus (R), No scleral icterus (L) Respiratory: decreased breath sounds, crackles Cardiovascular: tachycardia Gastrointestinal: non tender, soft, no organomegaly Extremities: no calf tenderness, normal capillary refill Neurologic/Psychiatric: alert, disoriented x 3 Skin: normal color, warm/dry Lymphatic: no adenopathy (neck, axilla or groin) Data Review Labs Laboratory Tests 02/25/17 08:13: White Blood Count 10.4, Red Blood Count 4.51, Hemoglobin 14.6, Hematocrit 44, Mean Corpuscular Volume 97, Mean Corpuscular Hemoglobin 32, Mean Corpuscular Hemoglobin Concent 33, Red Cell Distribution Width 13.3, Platelet Count 228, Mean Platelet Volume 9.4, Neutrophils (%) (Auto) 89H, Lymphocytes (%) (Auto) 3L , Monocytes (%) (Auto) 8, Eosinophils (%) (Auto) 0, Basophils (%) (Auto) 0, Neutrophils # (Auto) 9.3H, Lymphocytes # (Auto) 0.3L, Monocytes # (Auto) 0.8, Eosinophils # (Auto) 0.0, Basophils # (Auto) 0.0, Neutrophils % (Manual) 86, Lymphocytes % (Manual) 2, Monocytes % (Manual) 8, Band Neutrophils 4, Toxic Granulation 1+, Dohle Bodies SLIGHT, Blood Morphology Comment NORMAL, Prothrombin Time 41.5H, INR Comment 4.4H, Sodium Level 147H, Potassium Level 3.9 , Chloride Level 113H, Carbon Dioxide Level 20L, Anion Gap 14, Blood Urea Nitrogen 58H, Creatinine 0.86, Estimat Glomerular Filtration Rate > 60, BUN/ Creatinine Ratio 67, Glucose Level 124H, Calcium Level 9.4, Total Creatine Kinase 1217H Assessment/Plan Assessment/Plan Assessment/Plan 1. Possible Fall with head trauma, INR 4.4 2. Confusion Because this pt has confusion, was found down on the floor and is taking Coumadin; we are being safe and doing a trauma consult. Unfortunately, it will be hard to do neuro checks....because we don't know his baseline. CT of head did not show any obvious bleed; will wait for final radiology reading. Will not repeat CT unless any obvious neuro changes. Clinical Quality Measures DVT/VTE Risk/Contraindication: Risk Factor Score Per Nursin RFS Level Per Nursing on Admit: 4+=Very High KEENA HERNANDEZ DO Feb 25, 2017 12:11
[2017-02-25] MEDS ORDERED: ONDANSETRON 4 MG/2 ML (SDV) Z0FRAN IV PRN (12:45)
[2017-02-25] MEDS ORDERED: NS IV 1000 ML 1,000 ML IV SCH (12:45)
[2017-02-25] MEDS ORDERED: ACETAMINOPHEN 500 MG TAB (TYLENOL) PO PRN (12:45)
[2017-02-25] MEDS ORDERED: DIGOXIN 0.25 MG/ML (LANOXIN) 2 ML AMP IV NR (12:45)
--- NOTE | 2017-02-25 12:52 | Consultation-Cardiology ---
HPI-Cardiology Cardiology Consultation Date of Consultation 02/25/17 Date of Admission Time Seen by Provider: 12:46 Indication: atrial fibrillation HPI 86-year-old gentleman with history of dementia, transferred from [facility] emergency room with questionable fall, unable to provide any history, history was obtained by reviewing his records. Patient was noted to be in atrial fibrillation with rapid ventricular response, started on Cardizem drip and transferred to the intensive care unit. Upon my evaluation he was laying down in bed. Not verbal or responding to any questions, hypotensive and tachycardic. No reported chest pain. There is questionable syncope earlier prior to the admission or within a week or [address] scan done which did not show any bleed, noted to be super therapeutic on his Coumadin level. He was seen by Dr. Moore in 2010 and underwent electrical cardioversion for atrial fibrillation Home Medications & Allergies Allergies: Coded Allergies: diazolidinyl urea (Verified Allergy, Unknown, 02/25/17) Home Medication List Reviewed: Yes no medication list were available, I was able to review his medication list from 2010 ANK-Ykuqgz-Yudbvh Hx Patient Social History Marital Status: Alcohol Use: Denies Use Recreational Drug Use: No Smoking Status: Unknown if Ever Smoked Recent Foreign Travel: No Recent Infectious Disease Expo: No Recent Hopitalizations: No Physical Abuse Screen: No Sexual Abuse: No Past Medical History past medical history as discussed below Family Medical History Significant Family History: Other Conditions/Hx (Unknown, pt cannot answer) Family Medical Hx noncontributory to his current condition Constitutional: malaise, weakness, other (unable to provide review of systems) Reviewed Test Results Reviewed Test Results Lab Laboratory Tests Test 02/25/17 08:13 Range/Units White Blood Count 10.4 4.3-11.0 10^3/uL Red Blood Count 4.51 4.35-5.85 10^6/uL Hemoglobin 14.6 13.3-17.7 G/DL Hematocrit 44 40-54 % Mean Corpuscular Volume 97 80-99 FL Mean Corpuscular Hemoglobin 32 25-34 PG Mean Corpuscular Hemoglobin Concent 33 32-36 G/DL Red Cell Distribution Width 13.3 10.0-14.5 % Platelet Count 228 130-400 10^3/uL Mean Platelet Volume 9.4 7.4-10.4 FL Neutrophils (%) (Auto) 89 H 42-75 % Lymphocytes (%) (Auto) 3 L 12-44 % Monocytes (%) (Auto) 8 0-12 % Eosinophils (%) (Auto) 0 0-10 % Basophils (%) (Auto) 0 0-10 % Neutrophils # (Auto) 9.3 H 1.8-7.8 X 10^3 Lymphocytes # (Auto) 0.3 L 1.0-4.0 X 10^3 Monocytes # (Auto) 0.8 0.0-1.0 X 10^3 Eosinophils # (Auto) 0.0 0.0-0.3 10^3/uL Basophils # (Auto) 0.0 0.0-0.1 10^3/uL Neutrophils % (Manual) 86 % Lymphocytes % (Manual) 2 % Monocytes % (Manual) 8 % Band Neutrophils 4 % Toxic Granulation 1+ Dohle Bodies SLIGHT Blood Morphology Comment NORMAL Prothrombin Time 41.5 H 12.2-14.7 SEC INR Comment 4.4 H 0.8-1.4 Sodium Level 147 H 135-145 MMOL/L Potassium Level 3.9 3.6-5.0 MMOL/L Chloride Level 113 H 98-107 MMOL/L Carbon Dioxide Level 20 L 21-32 MMOL/L Anion Gap 14 5-14 MMOL/L Blood Urea Nitrogen 58 H 7-18 MG/DL Creatinine 0.86 0.60-1.30 MG/DL Estimat Glomerular Filtration Rate > 60 BUN/Creatinine Ratio 67 Glucose Level 124 H 70-105 MG/DL Calcium Level 9.4 8.5-10.1 MG/DL Total Creatine Kinase 1217 H 30-200 U/L Physical Exam Vital Signs Vital Sign - Last 12Hours 02/25/17 04:40 Temp 98.9 Pulse 124 Resp 24 B/P (MAP) 171/81 Pulse Ox 95 O2 Delivery Room Air Capillary Refill : General Appearance: WD/WN, Moderate Distress Eyes: Bilateral Eye Normal Inspection, Bilateral Eye PERRL, Bilateral Eye EOMI HEENT: PERRL/EOMI Neck: Normal Inspection, Non Tender, Supple Respiratory: Chest Non Tender, No Accessory Muscle Use, No Respiratory Distress , Crackles Cardiovascular: No Edema, Systolic Murmur, Irregularly Irregular, Tachycardia, Other (metallic click) Gastrointestinal: Normal Bowel Sounds, No Organomegaly, No Pulsatile Mass, Soft Back: Normal Inspection Extremity: Normal Inspection, Non Tender, No Calf Tenderness, No Pedal Edema Neurologic/Psychiatric: Depressed Affect, Other (lethargic) Skin: Normal Color, Warm/Dry Lymphatic: No Adenopathy A/P-Cardiology Admission Diagnosis Atrial fibrillation Tachycardia Hypotension Coronary artery disease Assessment/Plan Atrial fibrillation with rapid ventricular response, history of paroxysmal atrial fibrillation had cardioversion done by Dr. Moore in 2010. I will reevaluate 2-D echocardiogram, started on Cardizem drip but has been titrated down due to hypotension. I will give him IV fluid and digoxin and evaluate echocardiogram. Hypotension, multifactorial, I will use IV fluid bolus and monitor his tolerance and response. Rhabdomyolysis, continue with aggressive IV fluid and monitor his tolerance and response, evaluate echocardiogram. History of maze procedure done at the time of bypass surgery in 2004 Coronary artery disease, history of CABG 5 using vein graft to LAD, vein graft to left circumflex artery, vein graft to right coronary artery with mitral valve replacement using # 33 [employer] valve, no recent echocardiogram was done. Last stress test in our record from October 2007. Chronic coumadinization, currently Coumadin toxicity, holding Coumadin and monitor INR closely Status post fall, no significant hematoma or bleed. Continue to monitor closely. Hypothyroidism, has been on thyroid replacement therapy in the past. History of treatment with amiodarone, record from 2010 reporting amiodarone 100 mg daily. I might restart the medication. History of glucose intolerance. History of glaucoma Clinical Quality Measures DVT/VTE Risk/Contraindication: Risk Factor Score Per Nursin RFS Level Per Nursing on Admit: 4+=Very High GEM TOLEDO MD Feb 25, 2017 12:52
[2017-02-25] MEDS ORDERED: CATHETER FLUSH 10 ML SYR IV PRN (14:15)
[2017-02-25] MEDS ORDERED: ACETAMINOPHEN 325 MG TABLET/CAPLET (TYLENOL) PO PRN (14:15)
[2017-02-25] MEDS: DIGOXIN 0.25 MG (LANOXIN) TAB PO SCH (21:09)
[2017-02-26] VITALS (37 sets, daily range): BP systolic 98–129; BP diastolic 62–88
[2017-02-26] MEDS: DILTIAZEM DRIP 100 MG in SODIUM CHLORIDE (ADD-VANTAGE) 100 ML IV SCH (01:25)
[2017-02-26] MEDS: NS IV 1000 ML 1,000 ML IV SCH ×3 (01:25→15:27)
[2017-02-26 04:29] LABS: BASOPHILS % (AUTO) 0 % (0-10); EOSINOPHILS % (AUTO) 0 % (0-10); LYMPHOCYTES # (AUTO) 0.4 X 10^3 (1.0-4.0); LYMPHOCYTES % (AUTO) 6 % (12-44); MEAN CORPUSCULAR HEMOGLOBIN 32 PG (25-34); MEAN CORPUSCULAR HGB CONC 33 G/DL (32-36); MEAN CORPUSCULAR VOLUME 98 FL (80-99); MEAN PLATELET VOLUME 9.5 FL (7.4-10.4); MONOCYTES # (AUTO) 0.6 X 10^3 (0.0-1.0); MONOCYTES % (AUTO) 8 % (0-12); NEUTROPHILS # (AUTO) 6.5 X 10^3 (1.8-7.8); NEUTROPHILS % (AUTO) 86 % (42-75); PLATELET COUNT 243 10^3/uL (130-400); RED CELL DISTRIBUTION WIDTH 13.2 % (10.0-14.5); WHITE BLOOD COUNT 7.5 10^3/uL (4.3-11.0)
[2017-02-26 04:39] LABS: PROTHROMBIN TIME PATIENT 45.8 SEC (12.2-14.7)
[2017-02-26 04:51] LABS: ALANINE AMINOTRANSFERASE 25 U/L (0-55); ANION GAP 8 MMOL/L (5-14); ASPARTATE AMINO TRANSFERASE 46 U/L (5-34); BILIRUBIN,TOTAL 1.3 MG/DL (0.1-1.0); BLOOD UREA NITROGEN 49 MG/DL (7-18); BUN/CREATININE RATIO 67; CALCIUM 8.8 MG/DL (8.5-10.1); CARBON DIOXIDE 22 MMOL/L (21-32); CHLORIDE 118 MMOL/L (98-107); CREATININE SERUM 0.73 MG/DL (0.60-1.30); GFR ESTIMATED > 60; GLUCOSE 112 MG/DL (70-105); POTASSIUM 3.7 MMOL/L (3.6-5.0); SODIUM 148 MMOL/L (135-145)
[2017-02-26 04:59] LABS: DIGOXIN 1.25 NG/ML (0.80-2.00)
[2017-02-26 05:22] LABS: BAND NEUTROPHILS 11 %; LYMPHOCYTES % (MANUAL) 8 %; NEUTROPHILS % (MANUAL) 74 %
[2017-02-26 05:32] LABS: MAGNESIUM 2.1 MG/DL (1.8-2.4); PHOSPHORUS 1.5 MG/DL (2.3-4.7)
[2017-02-26] MEDS ORDERED: POT PHOS/NA PHOS (K-PHOS NEUTRAL) ONE (06:13)
[2017-02-26] MEDS ORDERED: POT PHOS/NA PHOS (K-PHOS NEUTRAL) PO ONE (06:30)
[2017-02-26] MEDS: POTASSIUM CL 10MEQ/50ML IVPB 50 ML IV SCH (06:31)
[2017-02-26] MEDS: MAGNESIUM 1 GM/100 ML IVPB 100 ML IV SCH (06:31)
[2017-02-26] MEDS: KCL 20 MEQ TAB (K-DUR) PO SCH (06:31)
[2017-02-26] MEDS ORDERED: SALIVA STIMULANT MOUTH SPRAY (BIOTENE) 1.5 OZ MM PRN (07:45)
[2017-02-26] MEDS: DIGOXIN 0.25 MG (LANOXIN) TAB PO SCH (08:01)
--- NOTE | 2017-02-26 08:46 | Diagnostic Imaging Report ---
INDICATION: Recent fall. Confusion. FINDINGS: Portable chest shows normal heart size and vascularity. Aorta is tortuous. There is left infrahilar and basilar atelectasis and infiltrate. Right lung is clear. There is no effusion or pneumothorax. No acute bony abnormality is seen. IMPRESSION: There is atelectasis and infiltrate in the left lower lobe. Recommend followup. Dictated by: Dictated on workstation # [id number]
--- NOTE | 2017-02-26 09:27 | Progress Note-Hospitalist ---
Subjective HPI/CC On Admission Date Seen by Provider: Feb 26, 2017 Time Seen by Provider: 09:30 Pt is an 86yoCM who was transferred from [facility] Er for admission for rhabdo. He is a very poor historian. He believes he is in [place], [place] in his bedroom. He is unsure if he fell yesterday or if it was two month ago. He is unsure how he arrived at the ER but knows his friend Karen called EMS for he and his . per report from the ER EMS was called because he fell and was unable to get him up. THey were unsure how long he was done has he and his both suffer from dementia. He had images of his hip and elbow done at OSH but did not get a CT Head despite being on Warfarin. His only complaint today is some back pain. When asked about his medical history he states he has no medical problems and has never had surgery (despite a scar on his chest consistent with open heart surgery). Subjective/Events-last exam Pt reports feeling better. He is more alert and oriented today. He reports he feel sometime after Thanksgiving (he thinks Monday) and was unable to get up. His fell trying to get him up. We discussed his living situation and his safety and he is very resistant to any placement outside of his home. Objective Exam Vital Signs Vital Sign - Last 12Hours 02/25/17 04:40 Temp 98.9 Pulse 124 Resp 24 B/P (MAP) 171/81 Pulse Ox 95 O2 Delivery Room Air Capillary Refill : General Appearance: No Apparent Distress, WD/WN Respiratory: Lungs Clear, No Respiratory Distress Cardiovascular: No Murmur, Irregularly Irregular Gastrointestinal: Normal Bowel Sounds, Non Tender, Soft Extremity: Non Tender, No Calf Tenderness Neurologic/Psychiatric: Alert, Other (oriented to self, time, and place) Skin: Ecchymosis (scattered on arms and legs) Results/Procedures Lab Laboratory Tests 02/26/17 03:30 Assessment/Plan Assessment and Plan Assess & Plan/Chief Complaint a fib with RVR Diagnosis/Problems Diagnosis/Problems (1) Atrial fibrillation with RVR Status: Acute Assessment & Plan: Rate improved Cardiology Consulted On Digoxin ON cardizem gtt Echo Ordered, results pending INR 5.0- no need for further anticoagulation No signs of bleeding so no indication for reversal at this time Telemetry (2) CAP (community acquired pneumonia) Status: Acute Assessment & Plan: Seen on XR this AM No signs of sepsis (tachycardia from a-fib) Will start CAP coverage Blood and sputum cultures ordered Lactic acid ordered Qualifiers: Qualified Codes: J18.1 - Lobar pneumonia, unspecified organism (3) Rhabdomyolysis Status: Acute Assessment & Plan: Suffered fall in home probably on 02/24 No further symptoms Creatinine stable Decrease fluids Qualifiers: Qualified Codes: T79.6XXA - Traumatic ischemia of muscle, initial encounter (4) Fall at home Status: Acute Assessment & Plan: Unsure of details, per neighbor police had to break door down to get pt Found on floor in living room Discussed details with Trauma Surgery, consult place CT head- negative for bleed INR 5.0 today Qualifiers: Qualified Codes: W19.XXXA - Unspecified fall, initial encounter; Y92.099 - Unspecified place in other non-institutional residence as the place of occurrence of the external cause (5) Mitral valve prolapse Assessment & Plan: Mitral valve [place] [address] Moore's note from 2010 with mechanical valve INR 5.0 supratherapeutic (6) Essential (primary) hypertension Status: Chronic Assessment & Plan: Elevated, await med list from pharmacy (7) Hypothyroidism Assessment & Plan: Continue Synthroid when dose verified Qualifiers: Qualified Codes: E03.9 - Hypothyroidism, unspecified (8) Hyperlipemia Assessment & Plan: Resume statin when dose verified Qualifiers: Qualified Codes: E78.5 - Hyperlipidemia, unspecified (9) Living accommodation issues Assessment & Plan: Per report from ED physician at [facility] EMS states they are living in filthy environments Will consult social science professor for assistance, will need placement at [place] Discussed with his neighbor and manager ed Karen who states they live in "horrid " conditions and the home is cockroach infested She states he won't let anyone in to clean or help Discussed his safety upon discharge and is reluctant to go anywhere but home right now (10) Supratherapeutic INR Status: Acute Assessment & Plan: Supratherpeutic Karen reports multiple falls in the past few months Will need to have discuss with Cardiology and patient about safety of further anticoagulation (11) Dysphagia Status: Acute Assessment & Plan: RN concerned about aspiration while assisting with feeds yesterday GLASSWORKER consult placed Dysphagia diet ordered (12) Prophylactic measure Assessment & Plan: Warfarin (hold for INR of 5.0) NS at 50 Dysphagia diet MILTON NUNEZ MD Feb 26, 2017 9:27 am
[2017-02-26] MEDS ORDERED: cefTRIAXone INJECTION 1,000 MG in NS (IVPB) 50 ML IV SCH (09:30)
[2017-02-26] MEDS ORDERED: AZITHROMYCIN 500 MG/NS 250 ML IVPB IV NR ×2 (10:00)
[2017-02-26] MEDS ORDERED: AZITHROMYCIN 250 MG TAB (ZITHROMAX) PO SCH (10:00)
--- NOTE | 2017-02-26 10:37 | Progress Note ---
Subjective Time Seen by Provider: 10:24 Subjective/Events-last exam Pt seen and examined, much more alert today. Complains of some back pain. His INR is 5 today. Review of Systems General: No Chills, No Night Sweats HEENT: Head Aches Pulmonary: No Dyspnea, No Cough Cardiovascular: No: Chest Pain Gastrointestinal: No: Nausea, Vomiting Objective Exam Vital Signs Date Time Temp Pulse Resp B/P (MAP) Pulse Ox O2 Delivery O2 Flow Rate FiO2 02/26/17 09:14 86 20 103/62 97 Room Air 02/26/17 08:00 Room Air 02/26/17 07:45 97.7 92 17 115/75 97 Room Air 02/26/17 07:00 81 02/26/17 07:00 81 20 108/72 96 Room Air 02/26/17 06:00 88 12 117/83 97 Room Air 02/26/17 05:00 101 20 113/77 96 Room Air 02/26/17 04:00 Room Air 02/26/17 04:00 90 16 112/78 97 Room Air 02/26/17 03:00 92 20 123/76 96 Room Air 02/26/17 02:00 85 14 129/86 97 Room Air 02/26/17 01:25 96 02/26/17 01:00 91 02/26/17 01:00 84 15 125/79 96 Room Air 02/26/17 00:00 Room Air 02/25/17 23:00 87 24 133/88 95 Room Air 02/25/17 22:00 93 22 128/77 96 Room Air 02/25/17 21:00 101 21 118/83 94 Room Air 02/25/17 20:00 Room Air 02/25/17 20:00 97.6 Room Air 02/25/17 20:00 93 33 118/82 91 Room Air 02/25/17 19:17 94 02/25/17 19:00 96 19 132/88 90 Room Air 02/25/17 18:08 97.7 02/25/17 18:00 92 24 125/81 97 Room Air 02/25/17 17:00 96 18 119/89 84 Room Air 02/25/17 16:00 114 24 119/107 90 Room Air 02/25/17 15:45 Room Air 02/25/17 15:45 120 15 113/80 90 Room Air 02/25/17 15:30 101 15 134/113 93 Room Air 02/25/17 15:15 101 19 136/90 97 Room Air 02/25/17 15:00 103 21 137/92 96 Room Air 02/25/17 14:45 108 18 121/82 94 Room Air 02/25/17 14:35 86 18 95 Room Air 02/25/17 14:30 103 15 133/80 97 Room Air 02/25/17 14:15 108 16 116/86 96 Room Air 02/25/17 14:00 108 14 114/93 97 Room Air 02/25/17 13:45 94 18 125/103 97 Room Air 02/25/17 13:30 92 18 120/96 97 Room Air 02/25/17 13:15 128 22 113/101 98 Room Air 02/25/17 13:00 134 23 96/68 90 Room Air 02/25/17 13:00 134 02/25/17 12:45 130 16 86/51 98 Room Air 02/25/17 12:30 142 19 86/66 96 Room Air 02/25/17 12:15 121 25 82/66 98 Room Air 02/25/17 12:10 109/88 02/25/17 12:00 Room Air 02/25/17 12:00 129 21 96 Room Air 02/25/17 11:40 98.3 120 17 109/88 97 Room Air Capillary Refill : General Appearance: No Apparent Distress, Thin HEENT: PERRL/EOMI Neck: Normal Inspection, Non Tender, Supple Respiratory: Lungs Clear, No Respiratory Distress Cardiovascular: No Murmur, Irregularly Irregular Gastrointestinal: non tender, soft, no organomegaly Extremity: Non Tender, No Calf Tenderness Neurologic/Psychiatric: Alert Skin: Ecchymosis (scattered on arms and legs) Results Lab Laboratory Tests 02/26/17 03:30: White Blood Count 7.5, Red Blood Count 4.30L, Hemoglobin 13.8, Hematocrit 42, Mean Corpuscular Volume 98, Mean Corpuscular Hemoglobin 32, Mean Corpuscular Hemoglobin Concent 33, Red Cell Distribution Width 13.2, Platelet Count 243, Mean Platelet Volume 9.5, Neutrophils (%) (Auto) 86H, Lymphocytes (%) (Auto) 6L , Monocytes (%) (Auto) 8, Eosinophils (%) (Auto) 0, Basophils (%) (Auto) 0, Neutrophils # (Auto) 6.5, Lymphocytes # (Auto) 0.4L, Monocytes # (Auto) 0.6, Eosinophils # (Auto) 0.0, Basophils # (Auto) 0.0, Neutrophils % (Manual) 74, Lymphocytes % (Manual) 8, Monocytes % (Manual) 7, Band Neutrophils 11, Blood Morphology Comment NORMAL, Prothrombin Time 45.8*H, INR Comment 5.0H, Sodium Level 148H, Potassium Level 3.7, Chloride Level 118H, Carbon Dioxide Level 22, Anion Gap 8, Blood Urea Nitrogen 49H, Creatinine 0.73, Estimat Glomerular Filtration Rate > 60, BUN/Creatinine Ratio 67, Glucose Level 112H, Calcium Level 8.8, Phosphorus Level 1.5L, Magnesium Level 2.1, Total Bilirubin 1.3H, Aspartate Amino Transf (AST/SGOT) 46H, Alanine Aminotransferase (ALT/SGPT) 25, Alkaline Phosphatase 69, B-Type Natriuretic Peptide 236.2H, Total Protein 6.0L, Albumin 3.0L, Digoxin Level 1.25 Assessment/Plan Assessment/Plan Assessment/Plan 1. Possible Fall with head trauma, INR 5 2. Confusion Pt neuro status has actually improved, INR is up though. Would recommend just watching INR and not try reversing. Will sign off thank you for this consult. Clinical Quality Measures DVT/VTE Risk/Contraindication: Risk Factor Score Per Nursin RFS Level Per Nursing on Admit: 4+=Very High KEENA HERNANDEZ DO Feb 26, 2017 10:37
--- NOTE | 2017-02-26 10:57 | Cardiology Progress Note ---
Subjective Date Seen by Provider: Feb 26, 2017 Time Seen by Provider: 10:00 Subjective/Events-last exam patient is more awake today, responding appropriately, pleasant, denied any chest pain, no shortness of breath, no palpitation. Review of Systems General: No Chills, No Night Sweats, No Fatigue, No Malaise, No Appetite, No Other HEENT: No Head Aches, No Visual Changes, No Eye Pain, No Ear Pain, No Dysphasia , No Sinus Congestion, No Post Nasal Drip, No Sore Throat, No Other Pulmonary: No Dyspnea, No Cough, No Pleuritic Chest Pain, No Other Cardiovascular: No: Chest Pain, Palpitations, Orthopnea, Paroxysmal Noc. Dyspnea, Edema, Lt Headedness, Other Objective-Cardiology Exam Last Set of Vital Signs Vital Signs 02/26/17 02/26/17 07:45 09:14 Temp 97.7 Pulse 86 Resp 20 B/P (MAP) 103/62 Pulse Ox 97 O2 Delivery Room Air Capillary Refill : I&O Intake and Output 02/26/17 23:59 Intake Total 916 ml Output Total 325 ml Balance 591 ml Intake Oral 916 ml Output Urine Total 325 ml # Voids 1 General: Alert, Oriented X3, Cooperative HEENT: Atraumatic, PERRLA Neck: Supple, No JVD, No Thyromegaly Lungs: Clear to Auscultation, Normal Air Movement Heart: Normal S1, Normal S2, Other (irregular with metallic click) Abdomen: Normal Bowel Sounds, Soft, No Tenderness, No Hepatosplenomegaly, No Masses Extremities: No Clubbing, No Cyanosis, No Edema, Normal Pulses, No Tenderness/ Swelling Skin: No Rashes, No Breakdown, No Significant Lesion Neuro: Normal Gait, Normal Speech, Strength at 5/5 X4 Ext, Normal Tone, Sensation Intact Psych/Mental Status: Mental Status NL, Mood NL Results Lab Laboratory Tests 02/26/17 03:30 A/P-Cardiology Admission Diagnosis Atrial fibrillation Tachycardia Hypotension Coronary artery disease Assessment/Plan Atrial fibrillation with rapid ventricular response, history of paroxysmal atrial fibrillation had cardioversion done by Dr. Moore in 2010. echocardiogram showed left ventricular hypertrophy with normal systolic function and dilated left atrium, prostatic valve in the mitral position functioning normally. Rate is better controlled today on Cardizem drip, I'll switch him to oral Cardizem, continue to hold Coumadin Hypotension, multifactorial, improved, continue to monitor blood pressure Rhabdomyolysis, continue to monitor at this time. History of maze procedure done at the time of bypass surgery in 2004 Coronary artery disease, history of CABG 5 using vein graft to LAD, vein graft to left circumflex artery, vein graft to right coronary artery with mitral valve replacement using # 33 [employer] valve, no recent echocardiogram was done. Last stress test in our record from October 2007. monitor for now Chronic coumadinization, currently Coumadin toxicity, continue to hold Coumadin and monitor INR Status post fall, no significant hematoma or bleed, mental status has improved today. Continue to monitor Hypothyroidism, has been on thyroid replacement therapy in the past, Managed by primary care physician History of treatment with amiodarone, record from 2010 reporting amiodarone 100 mg daily. I we'll consider restarting amiodarone if needed History of glucose intolerance. History of glaucoma Clinical Quality Measures DVT/VTE Risk/Contraindication: Risk Factor Score Per Nursin RFS Level Per Nursing on Admit: 4+=Very High GEM TOLEDO MD Feb 26, 2017 10:57
[2017-02-26] MEDS: DILTIAZEM 30 MG (CARDIZEM) TAB PO SCH ×2 (11:02→17:05)
[2017-02-26 14:12] LABS: ANION GAP 7 MMOL/L (5-14); BLOOD UREA NITROGEN 45 MG/DL (7-18); BUN/CREATININE RATIO 63; CALCIUM 8.7 MG/DL (8.5-10.1); CARBON DIOXIDE 23 MMOL/L (21-32); CHLORIDE 118 MMOL/L (98-107); CREATININE SERUM 0.71 MG/DL (0.60-1.30); GFR ESTIMATED > 60; GLUCOSE 93 MG/DL (70-105); PHOSPHORUS 1.2 MG/DL (2.3-4.7); POTASSIUM 3.4 MMOL/L (3.6-5.0); SODIUM 148 MMOL/L (135-145)
[2017-02-26] MEDS ORDERED: ATEN25TA PO (16:23)
[2017-02-26] MEDS ORDERED: FINA5TAB6 PO (16:23)
[2017-02-26] MEDS ORDERED: LEVO100T7 PO (16:23)
[2017-02-26] MEDS ORDERED: ATOR80TA76 PO (16:23)
[2017-02-26] MEDS: ATORVASTATIN 80 MG (LIPITOR) TABLET PO SCH (20:45)
[2017-02-27] VITALS (17 sets, daily range): BP systolic 106–166; BP diastolic 69–107
[2017-02-27] MEDS: DILTIAZEM 30 MG (CARDIZEM) TAB PO SCH ×2 (00:44→06:36)
[2017-02-27 05:06] LABS: BASOPHILS % (AUTO) 0 % (0-10); EOSINOPHILS # (AUTO) 0.2 10^3/uL (0.0-0.3); EOSINOPHILS % (AUTO) 3 % (0-10); LYMPHOCYTES # (AUTO) 0.9 X 10^3 (1.0-4.0); LYMPHOCYTES % (AUTO) 15 % (12-44); MEAN CORPUSCULAR HEMOGLOBIN 33 PG (25-34); MEAN CORPUSCULAR HGB CONC 34 G/DL (32-36); MEAN CORPUSCULAR VOLUME 97 FL (80-99); MEAN PLATELET VOLUME 9.2 FL (7.4-10.4); MONOCYTES # (AUTO) 0.7 X 10^3 (0.0-1.0); MONOCYTES % (AUTO) 11 % (0-12); NEUTROPHILS # (AUTO) 4.3 X 10^3 (1.8-7.8); NEUTROPHILS % (AUTO) 70 % (42-75); PLATELET COUNT 231 10^3/uL (130-400); RED BLOOD COUNT 4.18 10^6/uL (4.35-5.85); RED CELL DISTRIBUTION WIDTH 12.9 % (10.0-14.5); WHITE BLOOD COUNT 6.1 10^3/uL (4.3-11.0)
[2017-02-27 05:16] LABS: INR 3.7 (0.8-1.4); PROTHROMBIN TIME PATIENT 36.3 SEC (12.2-14.7)
[2017-02-27 05:25] LABS: ANION GAP 9 MMOL/L (5-14); BLOOD UREA NITROGEN 40 MG/DL (7-18); BUN/CREATININE RATIO 59; CALCIUM 8.5 MG/DL (8.5-10.1); CARBON DIOXIDE 21 MMOL/L (21-32); CHLORIDE 114 MMOL/L (98-107); CREATININE SERUM 0.68 MG/DL (0.60-1.30); GFR ESTIMATED > 60; GLUCOSE 107 MG/DL (70-105); MAGNESIUM 1.9 MG/DL (1.8-2.4); PHOSPHORUS 1.4 MG/DL (2.3-4.7); POTASSIUM 3.5 MMOL/L (3.6-5.0); SODIUM 144 MMOL/L (135-145)
[2017-02-27] MEDS: LEVOTHYROXINE 100 MCG (LEVOTHROID) TAB PO SCH (05:56)
[2017-02-27] MEDS: MAGNESIUM 1 GM/100 ML IVPB 100 ML IV SCH (06:10)
[2017-02-27] MEDS: KCL 20 MEQ TAB (K-DUR) PO SCH (06:10)
[2017-02-27] MEDS: POTASSIUM CL 10MEQ/50ML IVPB 50 ML IV SCH (06:10)
[2017-02-27] MEDS ORDERED: KCL 20 MEQ TAB (K-DUR) PO ONE (06:15)
[2017-02-27] MEDS ORDERED: POTASSIUM PHOSPHATE INJ 30 MM in NS (IVPB) 250 ML IV ONE (07:00)
--- NOTE | 2017-02-27 07:36 | Pulmonary Consultation ---
History of Present Illness History of Present Illness Date of Consultation 02/27/17 07:30 Time Seen by Provider: 07:30 Date of Admission Reason for Visit: atrial fibrillation History of Present Illness 86yo poor historian pt transferred from [place] [facility] secondary to rhabdomyolysis. Pt had fallen and was not able to get up. The amount of time pt was on the floor is unknown. upon admission pt was dx with Afib RVR and cardizem gtt was started. Head CT is negative. I am consulted for ICU management. Allergies and Home Medications Allergies Coded Allergies: diazolidinyl urea (Verified Allergy, Unknown, 02/25/17) Home Medications Atenolol 25 Mg Tablet, 25 MG PO DAILY, (Reported) LAST FILLED 12/22/16 #30 Atorvastatin Calcium 80 Mg Tablet, 80 MG PO HS, (Reported) LAST FILLED 11/08/16 #90 Finasteride 5 Mg Tablet, 5 MG PO DAILY, (Reported) Levothyroxine Sodium 100 Mcg Tablet, 100 MCG PO DAILY, (Reported) Past Hveursp-Afvtgb-Cnvoao Hx Patient Social History Alcohol Use: Denies Use Recreational Drug Use: No Smoking Status: Unknown if Ever Smoked Recent Foreign Travel: No Contact w/Someone Who Travel: No Recent Infectious Disease Expo: No Recent Hopitalizations: No Seasonal Allergies Seasonal Allergies: No Surgeries History of Surgeries: Yes Surgeries: Open Heart Surgery Respiratory History of Respiratory Disorde: Yes Respiratory Disorders: COPD Cardiovascular History of Cardiac Disorders: Yes (CABG, MITRAL VALVE REPLACEMENT) Genitourinary History of Genitourinary Disor: No Gastrointestinal History of Gastrointestinal Di: No Musculoskeletal History of Musculoskeletal Dis: No Endocrine History of Endocrine Disorders: No HEENT History of HEENT Disorders: Yes HEENT Disorders: Cataract Cancer History of Cancer: No Psychosocial History of Psychiatric Problem: No Integumentary History of Skin or Integumenta: No Blood Transfusions History of Blood Disorders: No Family Medical History Significant Family History: Other Conditions/Hx (Unknown, pt cannot answer) Review of Systems Time Seen by Provider: 07:49 Exam Exam Vital Signs Date Time Temp Pulse Resp B/P (MAP) Pulse Ox O2 Delivery O2 Flow Rate FiO2 02/27/17 06:00 89 17 125/84 97 Room Air 02/27/17 05:00 80 16 120/85 99 Room Air 02/27/17 04:00 Room Air 02/27/17 04:00 82 35 114/85 95 Room Air 02/27/17 03:00 92 21 115/69 95 Room Air 02/27/17 02:00 83 16 110/69 98 Room Air 02/27/17 01:00 86 14 110/82 98 Room Air 02/27/17 01:00 86 02/27/17 00:00 Room Air 02/27/17 00:00 79 14 117/77 98 Room Air 02/26/17 23:00 82 14 113/81 97 Room Air 02/26/17 22:00 90 19 113/78 94 Room Air 02/26/17 21:00 82 26 113/84 97 Room Air 02/26/17 20:00 98.8 88 20 108/70 97 Room Air 02/26/17 20:00 Room Air 02/26/17 19:00 90 25 114/85 97 Room Air 02/26/17 19:00 90 02/26/17 18:00 80 26 106/76 96 Room Air 02/26/17 17:00 80 18 116/73 97 Room Air 02/26/17 16:00 77 26 106/63 94 Room Air 02/26/17 15:45 Room Air 02/26/17 15:30 98.6 80 16 110/73 97 Room Air 02/26/17 15:00 85 21 98/65 95 Room Air 02/26/17 14:00 80 18 110/73 96 Room Air 02/26/17 13:00 81 12 100/69 95 Room Air 02/26/17 12:59 75 02/26/17 12:00 82 19 113/81 96 Room Air 02/26/17 11:45 80 20 111/82 97 Room Air 02/26/17 11:30 80 29 104/71 97 Room Air 02/26/17 11:30 Room Air 02/26/17 11:19 98.9 02/26/17 11:15 85 18 104/81 96 Room Air 02/26/17 11:00 80 21 109/73 95 Room Air 02/26/17 10:45 86 12 96 Room Air 02/26/17 10:30 96 19 113/68 96 Room Air 02/26/17 10:15 84 19 107/88 94 Room Air 02/26/17 10:00 79 21 112/78 96 Room Air 02/26/17 09:45 89 18 105/68 96 Room Air 02/26/17 09:30 94 18 110/63 89 Room Air 02/26/17 09:14 86 20 103/62 97 Room Air 02/26/17 09:00 89 17 110/63 96 Room Air 02/26/17 08:45 81 21 93 Room Air 02/26/17 08:30 80 11 100/74 86 Room Air 02/26/17 08:15 84 23 125/83 97 Room Air 02/26/17 08:00 Room Air 02/26/17 08:00 83 17 106/86 96 Room Air 02/26/17 07:45 97.7 92 17 115/75 97 Room Air General Appearance: No Apparent Distress, Thin HEENT: PERRL/EOMI Neck: Normal Inspection, Non Tender, Supple Respiratory: Lungs Clear, No Respiratory Distress Cardiovascular: No Murmur, Irregularly Irregular Gastrointestinal: non tender, soft, no organomegaly Extremity: Non Tender, No Calf Tenderness Neurologic/Psychiatric: Alert Skin: Ecchymosis (scattered on arms and legs) Results Lab Laboratory Tests 02/25/17 08:13 02/26/17 03:30 02/26/17 13:15 02/27/17 04:30 Assessment/Plan Assessment/Plan CAP with dysphagia possible aspiration -Swallow eval pending -Continue current abx for now -Guzman cultures pending -add MAT protocol Afib RVR -cardiology following -Cardizem, dig Rhabdomyolysis s/p fall -head CT negative -IVF -repeat CPK Atelectasis -IS -continue to monitor hx of MV replacement -supratheraputic INR CAD with hx of CABG 255 Clinical Quality Measures DVT/VTE Risk/Contraindication: Risk Factor Score Per Nursin RFS Level Per Nursing on Admit: 4+=Very High DEL LIN DO Feb 27, 2017 07:36
[2017-02-27] MEDS ORDERED: SODIUM PHOSPHATE INJ 30 MM in NS (IVPB) 250 ML IV ONE (07:45)
--- NOTE | 2017-02-27 08:55 | Occ Therapy Progress Note ---
Therapy Progress Note Pt. has transferred to ICU due to change in medical status. New OT orders will need to be sent if occupational therapy is warranted by physician at this time. Thank you for the original consult. 09NORA MOULTON OT Feb 27, 2017 08:55
[2017-02-27] MEDS: DIGOXIN 0.25 MG (LANOXIN) TAB PO SCH (09:00)
[2017-02-27] MEDS: AZITHROMYCIN 250 MG TAB (ZITHROMAX) PO SCH (09:00)
[2017-02-27] MEDS: NS IV 1000 ML 1,000 ML IV SCH (09:03)
--- NOTE | 2017-02-27 09:44 | Progress Note-Cardiology ---
Cardiology SOAP Progress Note Subjective: States feels better compared to time of admission. Denies cp or palp or syncope. States lost balance, took a fall, and wasn't able to get up at home. Ambulance was called and found him on the ground. Reports gen malaise and weakness. Denies leg swelling. Denies N/V/D. Denies focal weakness. Has chronic mild to mod exertional shortness of breath. Denies fever or chills Objective: I&O/Vital Signs Vital Sign - Last 12Hours 02/26/17 02/26/17 02/27/17 02/27/17 22:00 23:00 00:00 00:00 Pulse 90 82 79 Resp 19 14 14 B/P (MAP) 113/78 113/81 117/77 Pulse Ox 94 97 98 O2 Delivery Room Air Room Air Room Air Room Air 02/27/17 02/27/17 02/27/17 02/27/17 01:00 01:00 02:00 03:00 Pulse 86 86 83 92 Resp 14 16 21 B/P (MAP) 110/82 110/69 115/69 Pulse Ox 98 98 95 O2 Delivery Room Air Room Air Room Air 02/27/17 02/27/17 02/27/17 02/27/17 04:00 04:00 05:00 06:00 Pulse 82 80 89 Resp 35 16 17 B/P (MAP) 114/85 120/85 125/84 Pulse Ox 95 99 97 O2 Delivery Room Air Room Air Room Air Room Air 02/27/17 07:00 Pulse 86 Weight (Pounds): 161 Weight (Ounces): 0.4 Weight (Calculated Kilograms): 73.314773 Constitutional: AAO x 3, well-developed, well-nourished, other (thin-appearing) Respiratory: No accessory muscle use, lungs clear to percussion, lungs clear to auscultation Cardiovascular: irregularly irregular, S[facility] S[facility] systolic murmur ( soft VANDA at card base) Gastrointestional: No tender, No guarding, No rebound, audible bowel sounds Extremities: No clubbing, No cyanosis, No significant edema Neurologic/Psychiatric: oriented x 3, grossly intact (power is 4/5 bilat) Skin: No rash on exposed areas, No ulcerations on exposed areas Results/Procedures: Labs Laboratory Tests 02/26/17 11:00: Lactic Acid Level 1.50 02/26/17 13:15: Sodium Level 148H, Potassium Level 3.4L, Chloride Level 118H, Carbon Dioxide Level 23, Anion Gap 7, Blood Urea Nitrogen 45H, Creatinine 0.71, Estimat Glomerular Filtration Rate > 60, BUN/Creatinine Ratio 63, Glucose Level 93, Calcium Level 8.7, Phosphorus Level 1.2L 02/27/17 04:30: Sodium Level 144, Potassium Level 3.5L, Chloride Level 114H, Carbon Dioxide Level 21, Anion Gap 9, Blood Urea Nitrogen 40H, Creatinine 0.68, Estimat Glomerular Filtration Rate > 60, BUN/Creatinine Ratio 59, Glucose Level 107H, Calcium Level 8.5, Phosphorus Level 1.4L, White Blood Count 6.1, Red Blood Count 4.18L, Hemoglobin 13.6, Hematocrit 41, Mean Corpuscular Volume 97, Mean Corpuscular Hemoglobin 33, Mean Corpuscular Hemoglobin Concent 34, Red Cell Distribution Width 12.9, Platelet Count 231, Mean Platelet Volume 9.2, Neutrophils (%) (Auto) 70, Lymphocytes (%) (Auto) 15, Monocytes (%) (Auto) 11, Eosinophils (%) (Auto) 3, Basophils (%) (Auto) 0, Neutrophils # (Auto) 4.3, Lymphocytes # (Auto) 0.9L, Monocytes # (Auto) 0.7, Eosinophils # (Auto) 0.2, Basophils # (Auto) 0.0, Prothrombin Time 36.3H, INR Comment 3.7H, Magnesium Level 1.9, Total Creatine Kinase 567H Laboratory Tests 02/26/17 03:30 02/26/17 13:15 02/27/17 04:30 A/P: Assessment: Atrial fibrillation, now apparently chronic and persistent; has history of paroxysmal atrial fibrillation for which last cardioversion was by Dr. 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 Last stress test in our record from October 2007 Chronic warfarin anticoag, managed by his pcp (Dr Huber). Warfarin currently being held due to supratherapeutic INR Status post fall, no significant hematoma or bleed Hypothyroidism, has been on thyroid replacement therapy in the past, managed by primary care physician History of treatment with amiodarone (record from 2010 reporting amiodarone 100 mg daily); not currently on it History of glucose intolerance. History of glaucoma Plan: * Complex management due to multiple comorbidities * Continue rate-controlling agents for A Fib * Resume warfarin when INR drops to therapeutic range * Replenish K * Monitor labs * I spoke with him in detail and answered questions TERE MOORE MD FACP FACC CCDS Feb 27, 2017 09:44
--- NOTE | 2017-02-27 09:54 | Diagnostic Imaging Report ---
INDICATION: Recent fall, confusion. TECHNIQUE: Single view chest at 4:50 AM. CORRELATION STUDY: 02/26/2017. FINDINGS: Post sternotomy and coronary artery bypass and cardiac valve surgery. Heart size is enlarged. Mediastinum is widened and prominent with a very tortuous ectatic course of the thoracic aorta. Areas of atelectasis or infiltrate in the left lung base are present. No pneumothorax. IMPRESSION: 1. Widened mediastinum with post surgical changes of sternotomy generally stable. 2. Areas of atelectasis or infiltrate about the left lung base, stable. Dictated by: Dictated on workstation # [id number]
[2017-02-27] MEDS ORDERED: DILTIAZEM 120 MG (CARDIZEM CD) CAP PO NR (10:00)
[2017-02-27] MEDS ORDERED: cefTRIAXone INJECTION 1,000 MG in NS (IVPB) 50 ML IV SCH (10:00)
--- NOTE | 2017-02-27 10:55 | ST Dysphagia Evaluation ---
Speech Evaluation-General Medical Diagnosis Rhabdo Therapy Diagnosis Therapy Diagnosis: Mild Oral Dysphagia Precautions Precautions: Aspiration Precautions/Isolations: Fall Prevention, Standard Precautions Referral Referring Physician: Dr. Sarina Ordoñez Reason for Referral: Evaluation/Treatment Clinical Bedside Swallowing Evaluation Medical History Pertinent Medical History: CABG, Dementia, HTN, Hypothroidism Speech PLF/Current-Dysphagia Prior Level of Function The patient denied any prior challenges with swallowing, including signs/ symptoms of aspiration or laryngeal penetration with any consistency he currently consumes. Subjective The patient was recently admitted to [facility] with a diagnosis of rhabdo. The patient greeted the clinician and was agreeable to participation in the bedside swallowing evaluation. Prior to the evaluation, the patient's RN stated the patient consumed his breakfast items well without signs/symptoms of aspiration. The patient is currently receiving a regular diet with thin liquids. CXR: 02/26/17: Atelectasis and infiltrate in the left lower lobe. Cognitive Status Patient Orientation: Person Oral Motor Skills Dentition: Edentalous (Six teeth present.) Current Food Consistancy: Regular, Thin Liquids Ability to Follow Directions: Fair Oral Expression Ability: Moderate Impairment Voice Voice Phonatory-Based Quality: Weak Voice Pitch: Normal Voice Loudness: Mildly Soft/Quiet Face Facial Symmetry: Symmetrical Oral-Facial Assessment Oral-Facial Dentition: Normal Labial Seal Description: Normal Smile: Normal Lingual Protrusion: Normal Lingual ROM: Normal Lingual Strength: Normal Pharynx Velopharyngeal Move.: Normal Volitional Dry Swallow: Yes Dysphagia Evaluation Consistencies Presented: Thin Liquid, Pureed - Solid consistencies were deferred as the patient is primarily edentulous (six teeth present). Soft consistencies were provided to avoid mastication. - No pharyngeal deficits were noted throughout the evaluation. - No signs/symptoms of aspiration were demonstrated with multiple teaspoon and straw drinks of thin liquid and multiple trials of puree consistency. The patient's vocal quality remained clear. Dietary Recommendations: Mechanical Soft Liquid Recommendations: Thin Swallowing Precautions: Small Bites and Sips, Sitting 90 Degrees 30 Post Intake Dysphagia Evaluation Summary The patient demonstrated mild oral dysphagia characterized by his edentulous state and poor ability to masticate solid consistencies. Barriers to Learning Cognition Speech-Plan Treatment Plan Speech Therapy Treatment Plan: Discontinue ST Evaluation, only. Frequency: 1 time per week (Evaluation, only.) Estimated Hrs Per Day: Other (Evaluation, only.) Rehab Potential: Fair Safety Risks/Education Teaching Recipient: Patient Teaching Methods: Discussion Response to Teaching: Reinforcement Needed Education Topics Provided: Results, Recommendations, Swallowing Strategies Time Speech Therapy Time In: 10:00 Speech Therapy Time Out: 10:15 Total Billed Time: 15 Billed Treatment Time 1MALCOLM [address] ST Feb 27, 2017 10:55
--- NOTE | 2017-02-27 10:58 | Physical Therapy Evaluation ---
PT Evaluation-General Medical Diagnosis Admission Date Feb 25, 2017 at 05:12 Medical Diagnosis: Rhabdomyolosis Onset Date: Feb 25, 2017 Therapy Diagnosis Therapy Diagnosis: weakness Height/Weight Height (Feet): 6 Height (Inches): 4.00 Weight (Pounds): 161 Weight (Ounces): 0.4 Precautions Precautions/Isolations: Fall Prevention, Standard Precautions Weight Bear Status Right Lower Extremity: Right Weight Bearing/Tolerated Left Lower Extremity: Left Weight Bearing/Tolerated Referral Physician: Tiago Reason for Referral: Evaluation/Treatment, Strengthening, Gait Medical History Pertinent Medical History: CABG Additional Medical History Previous falls Reviewed History: Yes Social History Home: Single Level Current Living Status: Spouse Entry Into Home: Level Entry Accuracy of home setting hard to tell. Patient is a poor historian. Prior/Core FIM Prior Level of Function Functional [place] Measure 0=Not Assessed/NA 4=Minimal Assistance 1=Total Assistance 5=Supervision or Setup 2=Maximal Assistance 6=Modified [place] 3=Moderate Assistance 7=Complete [place] Bed Mobility: 7 Transfers (B,C,W/C) (FIM): 7 Gait: 6 Locomotion: 6 Patient ambulated in the home with a cane. PT Evaluation-Current Subjective Patient is doing well. Patient has noticeable trouble with sense of time and recollection of recent events. Patient is very kind and agreeable to PT. He states he has a toothache and soreness everywhere since his last fall. He is unsure of when the fall occurred. Pain Numeric Pain Scale: 5-Moderate Pain Comment: He reports pain in all LE joints since the fall. Pt/Family Goals Patient wishes to be able to return home. Objective Patient Orientation: Person, Situation Attachments: IV Patient is aware of who is and his current status. He asks if he is in a hospital. He has a poor recollection of time. ROM/Strength ROM Upper Extremities Limited by reported pain ROM Lower Extremities limited by reported pain Strength Upper Extremities Unable to assess due to current pain. He appears to be generally weak grossly. Strength Lower Extremities Unable to assess due to current pain. He appears to be generally weak grossly. Integumentary/Posture Integumentary bruising on back from recent fall. Otherwise intact Bowel Incontinence: No Bladder Incontinence: No Neuromuscular (Tone, Coordination, Reflexes) normal Sensory Vision: Functional Hearing: Functional Sensation Right Upper Extremit: Intact Sensation Left Upper Extremity: Intact Sensation Right Lower Extremit: Intact Sensation Left Lower Extremity: Intact Transfers Functional [place] Measure 0=Not Assessed/NA 4=Minimal Assistance 1=Total Assistance 5=Supervision or Setup 2=Maximal Assistance 6=Modified [place] 3=Moderate Assistance 7=Complete [place] Transfers (B, C, W/C) (FIM): 2 Sit to/from Stand: 2 Patient required max assist from therapist to rise to stand. Patient was eventually able to stand under his own power with mod to min assist from therapist. Balance Sitting Static: Normal Sitting Dynamic: Normal Standing Static: Poor Standing Dynamic: Poor Assessment/Needs Patient is experiencing weakness at this point. Patient stated that he is motivated to walk, but he just feels weak right now. Patient will benefit from PT to improve transfers and potentially begin gait training with improved strength. Rehab Potential: Fair PT Residential Goals Residential Goals PT Residential Goals Time Frame: Mar 06, 2017 Transfers (B,C,W/C) (FIM): 4 Gait (FIM): 1 Gait distance (FIM): 1=up to 49 ft Distance: 25' Gait Level of Assist: 4 Gait Assistive Device: FWW PT Plan Problem List Problem List: Activity Tolerance, Functional Strength, Safety, Balance, Gait, Transfer, Bed Mobility Treatment/Plan Treatment Plan: Continue Plan of Care Treatment Plan: Bed Mobility, Education, Functional Activity Venessa, Functional Strength, Gait, Safety, Therapeutic Exercise, Transfers Treatment Duration: Mar 06, 2017 Frequency: 6 times per week Estimated Hrs Per Day: .25 hour per day Patient and/or Family Agrees t: Yes Safety Risks/Education Patient Education: Gait Training, Transfer Techniques, Reviewed Precautions, Disease Process Teaching Recipient: Patient Teaching Methods: Discussion Response to Teaching: Verbalize Understanding, Return Demonstration Discharge Recommendations Therapy D/C Recommendations: Assisted Living, Residential Placement Equpiment Recommendations-D/C: Straight Cane, Front Wheeled Walker Time/GCodes Time In: 1025 Time Out: 1050 Total Billed Treatment Time: 25 Total Billed Treatment 1 visit EVM 25 min LUCRECIA BLACKBURN PT Feb 27, 2017 10:57
--- NOTE | 2017-02-27 11:56 | Occupational Therapy Eval ---
OT Evaluation-General/PLF Medical Diagnosis Admission Date Feb 25, 2017 at 05:12 Medical Diagnosis: Rhabdomyolosis Onset Date: Feb 25, 2017 Therapy Diagnosis Therapy Diagnosis: Weakness Height/Weight Height (Feet): 6 Height (Inches): 4.00 Weight (Pounds): 161 Weight (Ounces): 0.4 Precautions Precautions/Isolations: Fall Prevention, Standard Precautions Safety Interventions: Bed Exit Alarm Referral Physician: Dr. Ordoñez Referral Reason: Activity Tolerance, Self Care, Evaluation/Treatment, Strengthening/ROM Medical History Pertinent Medical History: Atrial Fib, CABG, CAD Additional Medical History Mitral valve replacement, cardiomyopathy, respiratory Current History Pt. is poor historian. Pt. fell at home. Pt. is unable to state how long he was down. Pt. changes his story throughout session. At one point states that he was in the penitentiary for 2 months, and later states that he was in the penitentiary for 4 years. OT continually attempts to have pt. participate in different activities. Reviewed History: Yes Social History Home: Single Level Current Living Status: Spouse Entry Into Home: Level Entry ADL-Prior Level of Function ADL PLOF Comments Pt. states that he was fully independent with all basic ADLs previous to this hospitalization. However, pt. is unable to state specifically what he did or what his goal for returning home is. Pt.'s story changes throughout session. Pt. states that he went to the grocery store everyday and drove there himself, but then states that him and his spouse only ate out, and that he did not cook. DME/Equipment Comments Pt. states that he has a walker, wheelchair, single point cane, quad cane, at home. States that he only uses his single point cane at home. OT Current Status Subjective Pt. states that he is comfortable up in the chair. States that he has been up in chair for approximately 2 hours, and wants to stay up "through supper." Appearance Pt. is sitting up and pleasant. Mental Status/Objective Patient Orientation: Confused Current Hand Dominance: Right Upper Extremity ROM Pt. is able to demonstrate approximately 100 degrees of shoulder flexion. States, "I fell and my back hurts when I go any further." Upper Extremity Strength NT as pt. states that his back hurts with any strain. ADL-Treatment Functional Linn Measure 0=Not Assessed/NA 4=Minimal Assistance 1=Total Assistance 5=Supervision or Setup 2=Maximal Assistance 6=Modified Linn 3=Moderate Assistance 7=Complete IndependenceIRFPAI Quality Coding Scale 6 Independent with activity with or without an assistive device 5 Patient requires set up or clean up by helper. Patient completes activity by themselves 4 Supervision or touching assist (CGA). [place] provide cues , steadying assist 3 The helper provides less than half the effort to complete the activity 2 The helper provides more than half the effort to complete the activity 1 Dependent. The helper does all the effort to complete an activity 7 Patient refused to complete or attempt activity 9 The patient did not perform the activity before the current illness or injury 88 Not attempted due to Medical conditions or safety concerns Pt. is up in chair. When OT entered room, speech therapist was feeding pt. as he was finishing a bedside swallow eval. Pt. states that he was independent at home. However, is inconsistent with stories. OT encourages pt. to participate in treatment this date. Attempted to have him spongebathe. Pt. states that he already has. Pt. appears clean. OT asks pt. if he can take off his socks and put them back on. Pt. states, "sure, the usual way." OT asks him to practice this for her. Pt. declines stating that he really doesn't want to right now. OT attempts to have pt. stand up. Pt. refuses and states that he is comfortable. OT asks pt. if he needs to use the bathroom. Pt. states that he already has. OT attempts to explain the purpose of occupational therapy to pt. , and the need to increase strength while in the hospital. Pt. agrees that it is a good thing, but then does not seem to understand why OT is asking him to practice completing functional tasks. OT stepped out of room and spoke with nursing. Nursing states that pt. did require max assist to get to chair, and has only been up approximately 30 minutes. Pt. is adamant with OT that he does not want to "go to that penitentiary." However, states that the therapy there was "good." OT explains again that pt. needs to participate in therapy while in hospital to continue with strengthening. Pt. continues to decline participation and does not seem to understand. Education OT Patient Education: Purpose of tx/functional activities, Rehab process Teaching Recipient: Patient Teaching Methods: Discussion Response to Teaching: Unable to Return Demonstration OT Short Term Goals Short Term Goals Time Frame: Mar 13, 2017 Eating(FIM): 4 Grooming(FIM): 3 Upper Body Dressing(FIM): 3 Lower Body Dressing(FIM): 3 Toileting(FIM): 3 Transfers (B,C,W/C) (FIM): 3 Toilet/Commode Transfer(FIM): 3 Additional Short Term Goals: 1-Demonstrate ADL Tasks, 2-Verbalize Understanding , 3-ImproveStrength/Venessa 1=Demonstrate adherence to instructed precautions during ADL tasks. 2=Patient will verbalize/demonstrate understanding of assistive devices/ modifications for ADL. 3=Patient will improve strength/tolerance for activity to enable patient to perform ADL's. OT Half-Way Goals Lasting Machine Operator Hand Method Goals Time Frame: Mar 27, 2017 Eating (FIM): 5 Grooming(FIM): 5 Bathing(FIM): 4 Upper Body Dressing(FIM): 5 Lower Body Dressing(FIM): 4 Toileting(FIM): 5 Transfers (B,C,W/C) (FIM): 5 Toilet/Commode Transfer(FIM): 5 Additional Goals: 1-Demonstrate ADL Tasks, 2-Verbalize Understanding, 3- ImproveStrength/Venessa 1=Demonstrate adherence to instructed precautions during ADL tasks. 2=Patient will verbalize/demonstrate understanding of assistive devices/ modifications for ADL. 3=Patient will improve strength/tolerance for activity to enable patient to perform ADL's. OT Education/Plan Problem List/Assessment Assessment: Decreased Activ Tolerance, Decreased Safety Aware, Decreased UE Strength, Dependent Transfers, Impaired Bed Mobility, Impaired Cognition, Impaired Funct Balance, Impaired I ADL's, Impaired Self-Care Skills, Restricted Funct UE ROM Discharge Recommendations Plan/Recommendations: Continue POC Therapy D/C Recommendations: 24 hr Supervision Comment Unsure on equipment needs at this time. Barriers to Progress Cognition Target Placement Pt. would benefit from 24 hour assist at this time. Treatment Plan/Plan of Care Treatment,Training & Education: Yes Patient would benefit from OT for education, treatment and training to promote independence in ADL's, mobility, safety and/or upper extremity function for ADL' s. Plan of Care: ADL Retraining, Cognitive Retraining, Functional Mobility, UE Funct Exercise/Act Treatment Duration: Mar 27, 2017 Frequency: 5 times per week Estimated Hrs Per Day: .5 hour per day Agreement: Yes Rehab Potential: Fair Time/GCodes Start Time: 10:10 Stop Time: 10:30 Total Time Billed (hr/min): 20 Billed Treatment Time 1, NORA ODOM OT Feb 27, 2017 11:56
--- NOTE | 2017-02-27 16:31 | Progress Note-Hospitalist ---
Standard Progress Note Progress Notes/Assess & Plan Date Seen 02/27/17 Time Seen by Provider: 16:26 Diagnosis Rhabdomyolysis Assess & Plan/Chief Complaint The patient is an 86-year-old white male from [place] who was admitted here by transfer from [facility] 2 days ago. He and his who are both somewhat demented had been living alone in a house which was described as cockroach ridden. There is a neighbor who checks on them from time to time and found them in the house and down on the floor. There is no clear evidence of when they first went down and were unable to get up. On his arrival he appeared to be dehydrated, had elevated muscle enzymes consistent with rhabdomyolysis, and was confused and obstreperous. He is much brighter at this point in time. He has chronic atrial fibrillation and it was also noted that he has pro-time was hypertherapeutic. He at first refused any thought of [place] [facility] [place] but now he and his agree that they need this. Arrangements are being made. Physical exam: He is alert and pleasant. Lungs are clear to auscultation. CV is somewhat tachycardic and irregular. Abdomen is soft. Extremities show no pedal edema. Impression: Chronic atrial fibrillation. 2 rhabdomyolysis secondary to prolonged pressure on lying on hard floor Plan: rehabilitation services director has been working on placement at a [facility]. Labs Laboratory Tests 02/26/17 03:30 02/26/17 13:15 02/27/17 04:30 DIPAK LIANG MD Feb 27, 2017 16:31
[2017-02-27] MEDS: RT-ALBUTEROL/IPRATROPIUM 3 ML (DUONEB) VIAL INH SCH (19:05)
[2017-02-27] MEDS: ATORVASTATIN 80 MG (LIPITOR) TABLET PO SCH (20:38)
[2017-02-28 00:02] VITALS: BP 141/86
[2017-02-28 04:38] VITALS: BP 138/86
[2017-02-28] MEDS: LEVOTHYROXINE 100 MCG (LEVOTHROID) TAB PO SCH (05:42)
[2017-02-28] MEDS: RT-ALBUTEROL/IPRATROPIUM 3 ML (DUONEB) VIAL INH SCH (07:13)
[2017-02-28 07:30] LABS: BASOPHILS % (AUTO) 0 % (0-10); EOSINOPHILS # (AUTO) 0.2 10^3/uL (0.0-0.3); EOSINOPHILS % (AUTO) 2 % (0-10); LYMPHOCYTES # (AUTO) 0.5 X 10^3 (1.0-4.0); LYMPHOCYTES % (AUTO) 7 % (12-44); MEAN CORPUSCULAR HGB CONC 34 G/DL (32-36); MEAN CORPUSCULAR VOLUME 97 FL (80-99); MEAN PLATELET VOLUME 8.8 FL (7.4-10.4); MONOCYTES # (AUTO) 0.6 X 10^3 (0.0-1.0); MONOCYTES % (AUTO) 9 % (0-12); NEUTROPHILS # (AUTO) 5.8 X 10^3 (1.8-7.8); NEUTROPHILS % (AUTO) 82 % (42-75)
[2017-02-28 07:32] LABS: MEAN CORPUSCULAR HEMOGLOBIN 32 PG (25-34); WHITE BLOOD COUNT 7.8 10^3/uL (4.3-11.0)
[2017-02-28 07:33] LABS: PLATELET COUNT 211 10^3/uL (130-400)
[2017-02-28 07:46] LABS: ANION GAP 8 MMOL/L (5-14); BLOOD UREA NITROGEN 24 MG/DL (7-18); BUN/CREATININE RATIO 36; CALCIUM 8.8 MG/DL (8.5-10.1); CARBON DIOXIDE 20 MMOL/L (21-32); CHLORIDE 112 MMOL/L (98-107); CREATININE SERUM 0.67 MG/DL (0.60-1.30); GFR ESTIMATED > 60; GLUCOSE 120 MG/DL (70-105); MAGNESIUM 1.9 MG/DL (1.8-2.4); PHOSPHORUS 1.9 MG/DL (2.3-4.7); POTASSIUM 4.3 MMOL/L (3.6-5.0); SODIUM 140 MMOL/L (135-145)
[2017-02-28 07:50] LABS: INR 2.2 (0.8-1.4); PROTHROMBIN TIME PATIENT 24.6 SEC (12.2-14.7)
[2017-02-28 07:55] LABS: DIGOXIN 1.04 NG/ML (0.80-2.00)
[2017-02-28 08:00] VITALS: BP 130/89
[2017-02-28] MEDS: AZITHROMYCIN 250 MG TAB (ZITHROMAX) PO SCH (08:14)
--- NOTE | 2017-02-28 08:20 | Pulmonary Progress Note ---
Subjective Time Seen by Provider: 08:24 Subjective/Events-last exam No complications noted. Exam Exam Vital Signs Date Time Temp Pulse Resp B/P (MAP) Pulse Ox O2 Delivery O2 Flow Rate FiO2 02/28/17 07:17 91 Room Air 02/28/17 04:38 98.0 104 18 138/86 92 Room Air 02/28/17 01:00 94 02/28/17 00:02 97.5 98 18 141/86 93 Room Air 02/27/17 21:00 Room Air 02/27/17 20:00 97.3 102 20 142/93 92 Room Air 02/27/17 19:05 89 Room Air 02/27/17 19:00 66 02/27/17 16:11 97.6 87 20 151/97 93 Room Air 02/27/17 15:43 Room Air 02/27/17 14:30 97.8 96 22 154/90 92 Room Air 02/27/17 14:29 Room Air 02/27/17 14:00 81 19 166/99 94 Room Air 02/27/17 13:00 97 02/27/17 13:00 103 23 151/91 94 Room Air 02/27/17 12:00 85 25 159/107 94 Room Air 02/27/17 11:48 91 Room Air 02/27/17 11:43 80 91 21 02/27/17 11:00 77 23 131/79 94 Room Air 02/27/17 10:00 76 20 119/92 94 Room Air 02/27/17 09:00 99 23 98 Room Air General Appearance: No Apparent Distress, Thin HEENT: PERRL/EOMI Neck: Normal Inspection, Non Tender, Supple Respiratory: Lungs Clear, No Respiratory Distress Cardiovascular: No Murmur, Irregularly Irregular Gastrointestinal: non tender, soft, no organomegaly Extremity: Non Tender, No Calf Tenderness Neurologic/Psychiatric: Alert Skin: Ecchymosis (scattered on arms and legs) Results Lab Laboratory Tests 02/26/17 13:15 02/27/17 04:30 02/28/17 07:05 Assessment/Plan Assessment/Plan CAP - no leukocytosis and no fever. Pt is on RA - doubt PNA -D/C abx. post 3 days of abx -Guzman cultures negative - MAT protocol Afib RVR -cardiology following -Cardizem, dig Rhabdomyolysis s/p fall -head CT negative -IVF -repeat CPK Atelectasis -IS -continue to monitor hx of MV replacement -supratheraputic INR CAD with hx of CABG 232 Clinical Quality Measures DVT/VTE Risk/Contraindication: Risk Factor Score Per Nursin RFS Level Per Nursing on Admit: 4+=Very High DEL LIN DO Feb 28, 2017 08:20
[2017-02-28] MEDS: NS IV 1000 ML 1,000 ML IV SCH (08:30)
[2017-02-28] MEDS ORDERED: DILTIAZEM 120 MG (CARDIZEM CD) CAP PO SCH (09:00)
[2017-02-28] MEDS ORDERED: AZITHROMYCIN 250 MG TAB (ZITHROMAX) PO SCH (09:00)
[2017-02-28] MEDS ORDERED: DIGOXIN 0.125 MG (LANOXIN) TAB PO SCH (09:00)
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
[2017-02-28] MEDS ORDERED: DILTIAZEM 240 MG (CARDIZEM CD) CAP PO NR (10:00)
--- NOTE | 2017-02-28 10:04 | Progress Note-Cardiology ---
Cardiology SOAP Progress Note Subjective: Sitting up in bed. Denies any c/o. States he feels good this morning. No c/o CP or palpitations. No c/o dyspnea. Objective: I&O/Vital Signs Vital Sign - Last 12Hours 02/28/17 02/28/17 02/28/17 02/28/17 00:02 01:00 04:38 07:17 Temp 97.5 98.0 Pulse 98 94 104 Resp 18 18 B/P (MAP) 141/86 138/86 Pulse Ox 93 92 91 O2 Delivery Room Air Room Air Room Air 02/28/17 02/28/17 08:00 09:00 Temp 98.2 Pulse 149 Resp 18 B/P (MAP) 130/89 Pulse Ox 93 O2 Delivery Room Air Room Air Weight (Pounds): 175 Weight (Ounces): 5.0 Weight (Calculated Kilograms): 79.441445 Constitutional: AAO x 3, well-developed, well-nourished, other (thin-appearing) Respiratory: No accessory muscle use, lungs clear to percussion, lungs clear to auscultation Cardiovascular: irregularly irregular, S1 and S2 ([facility] S1), systolic murmur ( soft VANDA at card base) Gastrointestional: No tender, No guarding, No rebound, audible bowel sounds Extremities: No clubbing, No cyanosis, No significant edema Neurologic/Psychiatric: oriented x 3, grossly intact (power is 4/5 bilat) Skin: No rash on exposed areas, No ulcerations on exposed areas Results/Procedures: Labs Laboratory Tests 02/28/17 07:05: White Blood Count 7.8, Red Blood Count 4.60, Hemoglobin 14.8, Hematocrit 44, Mean Corpuscular Volume 97, Mean Corpuscular Hemoglobin 32, Mean Corpuscular Hemoglobin Concent 34, Red Cell Distribution Width 13.0, Platelet Count 211, Mean Platelet Volume 8.8, Neutrophils (%) (Auto) 82H, Lymphocytes (%) (Auto) 7L , Monocytes (%) (Auto) 9, Eosinophils (%) (Auto) 2, Basophils (%) (Auto) 0, Neutrophils # (Auto) 5.8, Lymphocytes # (Auto) 0.5L, Monocytes # (Auto) 0.6, Eosinophils # (Auto) 0.2, Basophils # (Auto) 0.0, Prothrombin Time 24.6H, INR Comment 2.2H, Sodium Level 140, Potassium Level 4.3, Chloride Level 112H, Carbon Dioxide Level 20L, Anion Gap 8, Blood Urea Nitrogen 24H, Creatinine 0.67 , Estimat Glomerular Filtration Rate > 60, BUN/Creatinine Ratio 36, Glucose Level 120H, Calcium Level 8.8, Phosphorus Level 1.9L, Magnesium Level 1.9, Digoxin Level 1.04 Microbiology 02/26/17 Blood Culture - Preliminary, Resulted No growth Laboratory Tests 02/26/17 13:15 02/27/17 04:30 02/28/17 07:05 A/P: Assessment: Atrial fibrillation, now apparently chronic and persistent Coronary artery disease and valvular heart disease: CABG 5 in 2004 using vein graft to LAD, vein graft to left circumflex artery, vein graft to right coronary artery; mitral valve replacement using # 33 [employer] valv Echo of 02/27/17: sigmoid septum, LVEF 60-65%, grade 2 arambula dysfunction, normally functioning mech prosthesis in mitral position, PASP approx 40 mmHg Rhabdomyolysis (due to immobilization post non-syncopal fall on 02/24/17), improving clinically History of maze procedure done at the time of bypass surgery in 2004 Chronic warfarin anticoag, managed by his pcp (Dr Huber) Status post fall, no significant hematoma or bleed Hypothyroidism, has been on thyroid replacement therapy in the past, managed by primary care physician History of treatment with amiodarone (record from 2010 reporting amiodarone 100 mg daily); not currently on it History of glucose intolerance. History of glaucoma Plan: * Complex management due to multiple comorbidities * HR not well controlled - increase Diltiazem to 240mg daily * Resume warfarin today, INR is 2.2 * Monitor labs * Echocardiogram pending Physician Assessment Physician Assessment No cp or palp or syncope or shortness of breath. Has gen malaise and weakness Lungs: clear Cor: irreg with a controlled vent rate Ext: no c/c/e A&R * As documented in our note above that I updated (italics) and as noted below * Resume warfarin in previous home dose. Please closely follow INR and adjust warfarin accordingly * Low dose long-acting dilt added to regimen to control heart rate * F/u to continue with his social media content manager, Dr Inderjit LESTER,YOLANDA L [facility] Feb 28, 2017 10:04 TERE MATUTE MD FACP FAC CCDS Feb 28, 2017 11:31
[2017-02-28] MEDS ORDERED: WARF1TAB6 PO ×2 (10:06→11:22)
--- NOTE | 2017-02-28 10:08 | Discharge Inst-Skilled Nursing ---
Discharge Inst-Skilled NF Chief Complaint Pt is an 86yoCM who was transferred from [facility] for admission for rhabdo. He is a very poor historian. He believes he is in [place], [place] in his bedroom. He is unsure if he fell yesterday or if it was two month ago. He is unsure how he arrived at the ER but knows his friend Karen called EMS for he and his . per report from the ER EMS was called because he fell and was unable to get him up. THey were unsure how long he was done has he and his both suffer from dementia. He had images of his hip and elbow done at OSH but did not get a CT Head despite being on Warfarin. His only complaint today is some back pain. When asked about his medical history he states he has no medical problems and has never had surgery (despite a scar on his chest consistent with open heart surgery). Patient Instructions Patient Problems: 1.senile dementia. 2.fall at home with pressure related muscle injury. 3.valvular heart disease with previous prosthesis. 4.Coumadin use relative to number 3. And resultant Hyperanticoagulation. 4.physical deconditioning Goal: Proper use of medications. Physical therapy for christian. Consult/Follow Up/Orders Follow Up Appt.: Dr. Huber. Confirm the patient's Coumadin dosing as we have been unable to Skilled NF Admit to: [facility] in [place] Certification (SNF) I certify that SNF services are required to be given on an inpatient basis because of the above named patient's need for fci care on a continuing basis for the conditions(s) for which he/she was receiving inpatient hospital services prior to his/her transfer to the SNF. Half-Way Facility Order: Nursing Services, Data Base Administrator-Evaluate & Treat, Physical Therapy-Evaluate & Treat Discharge Diet: No Restrictions Daily Activity as Tolerated: Yes New & Resume Previous Orders Malvin Liang Feb 28, 2017 10:03 Pneu Vac Indicated: Yes MALVIN LIANG MD Feb 28, 2017 10:08
[2017-02-28] MEDS ORDERED: DILTIAZEM 120 MG (CARDIZEM CD) CAP PO NR (10:30)
[2017-02-28] MEDS ORDERED: DILT120C63 PO (11:26)
[2017-02-28 12:00] VITALS: BP 151/87
--- NOTE | 2017-02-28 14:01 | Occ Therapy Progress Note ---
Therapy Progress Note Attempted OT treatment this pm. Pt in bed, states he will be leaving today, declined therapy at this time. RN confirms pt will be discharging. Pt in bed with needs met. 1, visit GUSTAVO BERNARD OT Feb 28, 2017 14:01
[2017-02-28 15:10] VITALS: BP 151/87
[2017-03-01] MEDS ORDERED: DILTIAZEM 240 MG (CARDIZEM CD) CAP PO SCH (09:00)
== END 2017-02-28 15:10 | DRG 565 ==
LOC: 4TH 05:12 → ICU 12:00 → 4TH 02-27 14:10
PROVIDERS: ADMIT Family Medicine; ATTEND Family Medicine
DX: T79.6XXA Traumatic ischemia of muscle, initial encounter (principal); J98.11 Atelectasis; J44.0 Chronic obstructive pulmonary disease with (acute) lower respiratory infection; I48.1 Persistent atrial fibrillation; I95.9 Hypotension, unspecified; E86.0 Dehydration; I25.10 Atherosclerotic heart disease of native coronary artery without angina pectoris; F03.90 Unspecified dementia, unspecified severity, without behavioral disturbance, psychotic disturbance, mood disturbance, and anxiety; I10 Essential (primary) hypertension; E03.9 Hypothyroidism, unspecified; E78.5 Hyperlipidemia, unspecified; R13.10 Dysphagia, unspecified; M54.9 Dorsalgia, unspecified; R79.1 Abnormal coagulation profile; H40.9 Unspecified glaucoma; E74.39 Other disorders of intestinal carbohydrate absorption; Z95.2 Presence of prosthetic heart valve; Z95.1 Presence of aortocoronary bypass graft; Z79.01 Long term (current) use of anticoagulants; Z59.1 Inadequate housing; W19.XXXA Unspecified fall, initial encounter; Y92.008 Other place in unspecified non-institutional (private) residence as the place of occurrence of the external cause
CPT/HCPCS: 36415; 70450; 71010; 80048; 80053; 80162; 82550; 83605; 83735; 83880; 84100; 84443; 85007; 85025; 85027; 85610; 87040; 93005; 93306; 94640; 94664; 94760